=== PATIENT | male | born 1980 | race Caucasian/White ===

== ENCOUNTER 2017-12-22 04:55 | Emergency (ER) | payer SELFPAY ==
[2017-12-22 05:03] VITALS: BP 167/91; PULSE 88; RESP 20; TEMP 36.9; O2SAT 97; BMI 41.3
--- NOTE | 2017-12-22 05:17 | XR_ITS ---
XR chest 2V HISTORY: ITS.REASON: cough, wheezing ORDERING PHYSICIAN: Spike Maldonado MD PATIENT AGE: 37 years COMPARISON: None available FINDINGS: The cardiomediastinal silhouette and pulmonary vascularity are within normal limits. The lungs are clear without infiltrates, suspicious nodules, or pleural effusions. There are degenerative changes in the thoracic spine No acute bony abnormalities. IMPRESSION: No acute finding
[2017-12-22 05:37] LABS: Basophils % 0.6 % (0.1-2.0); Eosinophils # 0.2 K/mm3 (0.0-0.4); Eosinophils % 2.4 % (0.1-12.0); Hematocrit 48.3 % (42.0-52.0); Hemoglobin 16.5 g/dL (14.1-18.0); Lymphocytes % 27.8 K/mm3 (10-50); Mean Corpuscular HGB Conc 34.2 g/dL (31.8-35.4); Mean Corpuscular Hemoglobin 30.7 pg (27.0-31.2); Mean Corpuscular Volume 89.8 fl (80-94); Mean Platelet Volume 7.8 fl (7.4-10.4); Monocytes # 0.5 K/mm3 (0.1-1.0); Monocytes % 7.1 % (1.7-9.3); Neutrophils # 4.5 K/mm3 (1.8-7.8); Platelet Count 221 K/mm3 (142-424); Red Blood Count 5.37 M/mm3 (4.60-6.20); Red Cell Distribution Width 12.5 % (11.5-17.5); White Blood Count 7.3 K/mm3 (4.8-10.8)
[2017-12-22 05:52] LABS: Alanine Aminotransferase 31 U/L (12-78); Alkaline Phosphatase 71 U/L (46-116); Anion Gap 13.3 mEq/L (5-15); Aspartate Amino Transferase 21 U/L (15-37); Bilirubin,Total 0.3 mg/dL (0.2-1.0); Blood Urea Nitrogen 15 mg/dL (7-18); Calcium 8.9 mg/dL (8.5-10.1); Carbon Dioxide 28 mmol/L (21.0-32.0); Chloride 103 mmol/L (98-107); Creatinine Clearance Estimated 110 mL/min (0-300); Creatinine,Serum 0.91 mg/dL (0.70-1.30); Estimated Glomerular Filt Rate 93 ml/min (>60); GFR (African American) 113 ML/MIN (>60); Globulin 3.9 gm/dl (1.3-3.2); Glucose 105 mg/dL (74-106); Potassium 3.3 mmoL/L (3.5-5.1); Sodium 141 mmol/L (136-145); Total Protein,Serum 7.9 gm/dL (6.4-8.2)
[2017-12-22 06:05] VITALS: BP 162/92; PULSE 80; RESP 18; O2SAT 97
--- NOTE | 2017-12-22 06:27 | HMH.EDNVD ---
ED Disposition Clinical Impression: Gastroenteritis Disposition: Home, Self-Care Condition on Discharge: Good Instructions: Nausea and Vomiting-Adult Additional Instructions: fluids and use medds and see pcp for naren rodriguez Prescriptions: Ondansetron HCl [Zofran 4mg Tab] 4 mg PO Q8H #20 tab Forms: Work/School Release - Critical Care Critical Care Time: No Attestation: On 12/22/17, the high probability of a clinically significant, sudden or life threatening deterioration of the following system(s) required my full and direct attention, intervention and personal management. The time I documented below is in addition to time spent performing reported procedures but includes the following listed in this critical care notation. Medical Decision Making - Medical Records Medical records reviewed: Yes: I reviewed the patient's medical records. Vital Signs: 12/22/17 05:03 12/22/17 06:05 Temperature 98.5 F Temperature Source Oral Pulse Rate [Right] 88 80 Respiratory Rate 20 18 Blood Pressure [Right Arm] 167/91 162/92 Blood Pressure Mean [Right Arm] 116 115 Blood Pressure Source [Right Arm] Automatic Cuff Automatic Cuff Blood Pressure Position [Right Arm] Sitting Supine 02 Sat by Pulse Oximetry 97 97 Oxygen Delivery Method Room Air Room Air - Lab Data Lab results reviewed: Yes: I reviewed the patient's lab results. Lab Results 12/22/17 05:15: Influenza Type A Ag Negative, Influenza Type B Ag Negative 12/22/17 05:30: WBC 7.3, RBC 5.37, Hgb 16.5, Hct 48.3, MCV 89.8, MCH 30.7, MCHC 34.2, RDW 12.5, Plt Count 221, MPV 7.8, Neut % (Auto) 62.0, Lymph % (Auto) 27.8, [place] % (Auto) 7.1, Eos % (Auto) 2.4, Baso % (Auto) 0.6, Neut # (Auto) 4.5, Lymph # (Auto) 2.0, [place] # (Auto) 0.5, Eos # (Auto) 0.2, Baso # (Auto) 0.0 12/22/17 05:30: Sodium 141, Potassium 3.3 L, Chloride 103, Carbon Dioxide 28, Anion Gap 13.3, BUN 15, Creatinine 0.91, Estimated Creat Clear 110, Estimated GFR 93, Est GFR ( Amer) 113, Glucose 105, Calcium 8.9, Total Bilirubin 0.3, AST 21, ALT 31, Alkaline Phosphatase 71, Total Protein 7.9, Albumin 4.0, Globulin 3.9 H, Albumin/Globulin Ratio 1.0 L Result diagrams: 12/22/17 05:30 12/22/17 05:30 Orders (Tests/Meds): ED MEDICATIONS Generic Name Dose Route Start Last Admin Trade Name Freq PRN Reason Stop Dose Admin Sodium Chloride 1,000 mls @ 999 mls/hr 12/22/17 05:30 12/22/17 05:35 Sod Chloride 0.9% 1000ml Bag IV 12/22/17 06:30 999 mls/hr .Q1H1M SHAAN Administration ORDERS Category Date Time Status XR chest 2V Stat Exams 12/22/17 05:17 Taken - Radiology Data #1 Image(s): Chest Image Reviewed: Yes I reviewed the patient's radiology image Preliminary Findings: Normal/NAD - Vernon Inquiry Pt receiving controlled substance: No Nausea/Vomiting/Diarrhea HPI - General Chief complaint: Nausea/Vomiting/Diarrhea Stated complaint: Nausea,diarrhea,cough,body aches Time Seen by Provider: 12/22/17 06:27 Mode of Arrival: Ambulatory Source of Information: Patient, Medical Record Limitations: No Limitations Description of Symptoms (Recalled from ER Triage Doc. by RN): Pt reports nausea, vomiting, diarrhea, body aches, runny nose, and non-productive cough. 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 MD complaint: nausea, vomiting, diarrhea Onset (ago): day(s) Description of Diarrhea: water Associated Abdominal Pain: Yes Location of pain: diffuse Severity: moderate Quality: cramping Associated symptoms: malaise - Related Data Previous Rx's Medication Instructions Recorded Ondansetron HCl [Zofran 4mg Tab] 4 mg PO Q8H #20 tab 12/22/17 Allergies Allergy/AdvReac Type Severity Reaction Status Date / Time No Known Allergies Allergy Unverified 11/15/17 14:21 [facility] History I have reviewed the patient's past medical history: Yes - *Social History Smoking Status: Current every day s
--- NOTE | 2017-12-22 06:33 | ED_ITS ---
ED Disposition Clinical Impression: Gastroenteritis Disposition: Home, Self-Care Condition on Discharge: Good Instructions: Nausea and Vomiting-Adult Additional Instructions: fluids and use medds and see pcp for naren rodriguez Prescriptions: Ondansetron HCl [Zofran 4mg Tab] 4 mg PO Q8H #20 tab Forms: Work/School Release - Critical Care Critical Care Time: No Attestation: On 12/22/17, the high probability of a clinically significant, sudden or life threatening deterioration of the following system(s) required my full and direct attention, intervention and personal management. The time I documented below is in addition to time spent performing reported procedures but includes the following listed in this critical care notation. Medical Decision Making - Medical Records Medical records reviewed: Yes: I reviewed the patient's medical records. Vital Signs: 12/22/17 05:03 12/22/17 06:05 Temperature 98.5 F Temperature Source Oral Pulse Rate [Right] 88 80 Respiratory Rate 20 18 Blood Pressure [Right Arm] 167/91 162/92 Blood Pressure Mean [Right Arm] 116 115 Blood Pressure Source [Right Arm] Automatic Cuff Automatic Cuff Blood Pressure Position [Right Arm] Sitting Supine 02 Sat by Pulse Oximetry 97 97 Oxygen Delivery Method Room Air Room Air - Lab Data Lab results reviewed: Yes: I reviewed the patient's lab results. Lab Results 12/22/17 05:15: Influenza Type A Ag Negative, Influenza Type B Ag Negative 12/22/17 05:30: WBC 7.3, RBC 5.37, Hgb 16.5, Hct 48.3, MCV 89.8, MCH 30.7, MCHC 34.2, RDW 12.5, Plt Count 221, MPV 7.8, Neut % (Auto) 62.0, Lymph % (Auto) 27.8 , [place] % (Auto) 7.1, Eos % (Auto) 2.4, Baso % (Auto) 0.6, Neut # (Auto) 4.5, Lymph # (Auto) 2.0, [place] # (Auto) 0.5, Eos # (Auto) 0.2, Baso # (Auto) 0.0 12/22/17 05:30: Sodium 141, Potassium 3.3 L, Chloride 103, Carbon Dioxide 28, Anion Gap 13.3, BUN 15, Creatinine 0.91, Estimated Creat Clear 110, Estimated GFR 93, Est GFR ( Amer) 113, Glucose 105, Calcium 8.9, Total Bilirubin 0.3, AST 21, ALT 31, Alkaline Phosphatase 71, Total Protein 7.9, Albumin 4.0, Globulin 3.9 H, Albumin/Globulin Ratio 1.0 L Result diagrams: 12/22/17 05:30 12/22/17 05:30 Orders (Tests/Meds): ED MEDICATIONS Generic Name Dose Route Start Last Admin Trade Name Freq PRN Reason Stop Dose Admin Sodium Chloride 1,000 mls @ 999 mls/hr 12/22/17 05:30 12/22/17 05:35 Sod Chloride 0.9% 1000ml Bag IV 12/22/17 06:30 999 mls/hr .Q1H1M SHAAN Administration ORDERS Category Date Time Status XR chest 2V Stat Exams 12/22/17 05:17 Taken - Radiology Data #1 Image(s): Chest Image Reviewed: Yes I reviewed the patient's radiology image Preliminary Findings: Normal/NAD - Vernon Inquiry Pt receiving controlled substance: No Nausea/Vomiting/Diarrhea HPI - General Chief complaint: Nausea/Vomiting/Diarrhea Stated complaint: Nausea,diarrhea,cough,body aches Time Seen by Provider: 12/22/17 06:27 Mode of Arrival: Ambulatory Source of Information: Patient, Medical Record Limitations: No Limitations Description of Symptoms (Recalled from ER Triage Doc. by RN): Pt reports nausea , vomiting, diarrhea, body aches, runny nose, and non-productive cough. 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
[2017-12-22 06:47] VITALS: BP 148/91; PULSE 80; RESP 12; TEMP 37.2; O2SAT 99
== END 2017-12-22 06:51 | disposition home or self-care (01) ==
PROVIDERS: Emergency Provider Emergency Medicine
DX: K52.9 Noninfective gastroenteritis and colitis, unspecified (principal); F17.210 Nicotine dependence, cigarettes, uncomplicated
CPT/HCPCS: 71046; 80053; 85025; 87275; 87276; 96365; 99284

== ENCOUNTER 2020-03-11 19:37 | Emergency (ER) | payer SELFPAY ==
[2020-03-11 19:51] VITALS: BP 185/98; PULSE 100; RESP 17; TEMP 36.8; O2SAT 97; BMI 41.8
[2020-03-11 20:09] VITALS: BP 185/98; PULSE 100; RESP 17; TEMP 36.8; O2SAT 97; BMI 40.6
--- NOTE | 2020-03-11 20:14 | HMH.EDUTC ---
[facility] – [place] Disposition Clinical Impression: Pneumonia Qualifiers: Pneumonia type: due to unspecified organism Laterality: right Lung location: lower lobe of lung Qualified Code(s): J18.9 - Pneumonia, unspecified organism Disposition: Home, Self-Care Condition on Discharge: Good Instructions: Pneumonia-Adult, Cough, DI for Cough -- Adult, Albuterol, Azithromycin, Preventing the Spread of Coronavirus Discharge Instructions Additional Instructions: ? Start antibiotic today. Be sure to complete entire prescription even if feeling better ? Monitor temp. Tylenol every 4 hours as needed and / or ibuprofen every 6 hours as needed ( As long as your primary care physician has told you that it ok to take both. For fever/aches/pains ER if no less than 101 despite Tylenol or Motrin ? Humidifier/vaporizer or hot steamy shower ? Inhaler every 4-6 hours as needed like we discussed. If unsure how to use it, ask pharmacist to demonstrate how. Should help open airways and improve cough, wheezing, and shortness of breath ? Mucinex during the day for your cough and cough suppressant only at night. Be sure to drink lots of water. Insurance may not cover a prescriptions for mucinex. Might be cheaper to get 400mg tablets and take 2 tablet in the morning, mid-day and evening with lots of water. Follow up IMMEDIATELY for new or worsening of symptoms OR no noticeable improvement over the next 48-72 hours. 911 immediately for any life threatening symptoms such as chest pain or difficulty breathing You will be on home quarantine for the next 14 days, you was tested for COVID19 and it may take several days to get the test back and they will notify you, you was told in the [facility] not to be out in public and not to work You was given COVID19 handout on what to do Please follow this closely Straight to ER if any life threatening symptoms shortness of breath ETC, Make sure to let them know that you was tested for COVID19 and awaiting results of testing Use Inhaler as advised in [facility] with aerochamber Prescriptions: Azithromycin [Z-Chris 250mg Tab] 250 mg PO DIRECTED #6 tab Transmission Status: Pending to [id number] Referrals: Provider,Referral, MD [Primary Care Provider] - As needed Forms: Work/School Release Time of Disposition: 21:30 Medical Decision Making - Vernon Inquiry Pt receiving controlled substance: No Vernon was queried for this patient: No Vital Signs: 03/11/20 19:51 03/11/20 20:09 Temperature 98.3 F 98.3 F Temperature Source Oral Oral Pulse Rate [Right Brachial] 100 H 100 H Respiratory Rate 17 17 Blood Pressure [Right Arm] 185/98 H 185/98 H Blood Pressure Mean [Right Arm] 127 127 Blood Pressure Source [Right Arm] Automatic Cuff Automatic Cuff Blood Pressure Position [Right Arm] Sitting Sitting 02 Sat by Pulse Oximetry 97 97 Oxygen Delivery Method Room Air Room Air - Lab Data Lab results reviewed: Yes: I reviewed the patient's lab results. Lab Results 03/11/20 20:02: Influenza Type A Ag Negative, Influenza Type B Ag Negative 03/11/20 20:02: Strep Scn [facility] Negative Orders (Tests/Meds): ED MEDICATIONS Discontinued Medications Generic Name Dose Route Start Last Admin Trade Name Freq PRN Reason Stop Dose Admin Azithromycin 500 mg 03/11/20 21:28 Zithromax 250mg Tablet PO 03/11/20 21:29 ONCE ONE Protocol Miscellaneous 1 unit 03/11/20 21:29 Aerochamber/Optihaler MC 03/11/20 21:30 ONCE ONE ORDERS Category Date Time Status Chest XR 2 view (NOT portable) [XR chest 2V] Stat Exams 03/11/20 20:15 Taken SARS-CoV-2, KIM Stat Lab 03/11/20 21:11 Ordered Strep Screen Confirmation Stat Micro 03/11/20 20:02 Received - Radiology Data #1 Image(s): Chest Image Reviewed: Yes I reviewed the patient's radiology image w/the ED provider Right lower lobe infiltrate - Reevaluation(s) Time: 20:32 Reevaluation #1: Patient reports productive cough in the mornings however cough noted
--- NOTE | 2020-03-11 20:15 | XR_ITS ---
PROCEDURE: XR CHEST 2V CLINICAL HISTORY: COUGH AND FEVER Cough and fever COMPARISON: CXR2V XR chest 2V from 12/22/2017 FINDINGS: Mild cardiomegaly without failure. Patchy density is present in the right lung base medially suspicious for an area consolidation. Developing nodule is also consideration. Follow-up is suggested. This area measures 2.9 by 1.2 cm the A 1 cm lucency involves the distal clavicle on the right. There are degenerative changes in the thoracic spine IMPRESSION: 1. 2.9 x 1.2 cm parenchymal opacity in the right lung base which could be due to an area of dense consolidation or atelectasis versus developing nodule. Consider chest CT with contrast for further evaluation. 2. 1 cm lucency right distal clavicle suggesting underlying lytic lesion. Dictated by: Samy Verdugo MD 03/12/2020 05:52 Electronically signed by Samy Verdugo MD in [place] 03/12/2020 05:52
[2020-03-11 20:22] LABS: UTC Influenza A Antigen Negative (Negative); UTC Influenza B Antigen Negative (Negative); UTC Strep Screen (Rapid) Negative (Negative)
[2020-03-11 21:44] VITALS: BP 185/98; PULSE 100; RESP 17; TEMP 36.8; O2SAT 97
[2020-03-13 08:54] LABS: Covid-19 Nasal PCR Sendout Lex NOT DETECTED
--- NOTE | 2020-03-13 11:30 | PC.NURSE ---
0900-pt notified of negative COVID 19 results.
== END 2020-03-11 21:45 | disposition home or self-care (01) ==
PROVIDERS: Emergency Provider Nurse Practitioner
DX: J18.9 Pneumonia, unspecified organism (principal); F17.210 Nicotine dependence, cigarettes, uncomplicated
CPT/HCPCS: 71046; 87804; 87880; 99202

== ENCOUNTER 2020-03-31 15:15 | Emergency (ER) | payer OTHER, SELFPAY ==
--- NOTE | 2020-03-31 15:26 | XR_ITS ---
PROCEDURE: XR ANKLE RT MIN 3V CLINICAL INDICATION: injury Posttraumatic pain COMPARISON: XR FOOT RT MIN 3V from 03/31/2020 FINDINGS: There are no previous exams available for comparison. There has been prior ORIF of the calcaneus. 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 No acute fracture or dislocation is evident. Well-circumscribed calcific density is present the tip of the lateral malleolus and could be due to an old injury or soft tissue calcification. IMPRESSION: Posttraumatic and postsurgical changes. No acute fracture apparent. Dictated by: Samy Verdugo MD 03/31/2020 16:17 Electronically signed by Samy Verdugo MD in [place] 03/31/2020 16:17
[2020-03-31 15:28] VITALS: BP 180/106; PULSE 81; RESP 18; TEMP 36.7; O2SAT 97; BMI 38.4
--- NOTE | 2020-03-31 15:41 | HMH.EDUTC ---
[facility] – [place] Disposition Clinical Impression: Contusion of right foot Qualifiers: Encounter type: initial encounter Qualified Code(s): S90.31XA - Contusion of right foot, initial encounter Disposition: Home, Self-Care Condition on Discharge: Good Instructions: DI for Foot Sprain Additional Instructions: Rest the extremity, apply ice for 15 minutes as tolerated three or four times per day, Wear the kelsie wrap for compression, Elevate the extremity as tolerated while you are resting. Take ibuprofen for pain. I sent in a prescription to your pharmacy. Follow up with Dr. Acuna if you continue to have problems. I put in a referral but you need to call her office and schedule an appointment. Follow up with your regular doctor. GO TO THE ER FOR ANY WORSENING SYMPTOMS Prescriptions: Ibuprofen [Ibuprofen 600mg Tablet] 600 mg PO Q6HP PRN #30 tab PRN Reason: Mild Pain Transmission Status: Received by [id number] Referrals: Provider,Referral, [Primary Care Provider] - Kristie Acuna DPM [Staff Physician] - Forms: Work/School Release Time of Disposition: 16:30 Medical Decision Making - Medical Records Medical records reviewed: No: I reviewed the patient's medical records. - Vernon Inquiry Pt receiving controlled substance: No Vital Signs: 03/31/20 15:28 03/31/20 17:00 Temperature 98.0 F 98.0 F Temperature Source Oral Pulse Rate 81 Pulse Rate [Right Brachial] 81 Respiratory Rate 18 18 Blood Pressure 180/106 H Blood Pressure [Right Arm] 180/106 H Blood Pressure Mean [Right Arm] 130 Blood Pressure Source [Right Arm] Automatic Cuff Blood Pressure Position [Right Arm] Sitting 02 Sat by Pulse Oximetry 97 Oxygen Delivery Method Room Air - Radiology Data #1 Image(s): Foot/Toes Image Reviewed: Yes I reviewed the patient's radiology image, Yes I have reviewed radiologist's interpretation Preliminary Findings: No Fracture Seen PROCEDURE: XR ANKLE RT MIN 3V CLINICAL INDICATION: injury Posttraumatic pain COMPARISON: XR FOOT RT MIN 3V from 03/31/2020 FINDINGS: There are no previous exams available for comparison. There has been prior ORIF of the calcaneus. 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 No acute fracture or dislocation is evident. Well-circumscribed calcific density is present the tip of the lateral malleolus and could be due to an old injury or soft tissue calcification. IMPRESSION: Posttraumatic and postsurgical changes. No acute fracture apparent. Dictated by: Samy Verdugo MD 03/31/2020 16:17 Electronically signed by Samy Verdugo MD in [place] 03/31/2020 16:17 #2 Image(s): Ankle Image Reviewed: Yes I reviewed the patient's radiology image, Yes I have reviewed radiologist's interpretation Preliminary Findings: No Fracture Seen PROCEDURE: XR ANKLE RT MIN 3V CLINICAL INDICATION: injury Posttraumatic pain COMPARISON: XR FOOT RT MIN 3V from 03/31/2020 FINDINGS: There are no previous exams available for comparison. There has been prior ORIF of the calcaneus. 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 No acute fracture or dislocation is evident. Well-circumscribed calcific density is present the tip of the lateral malleolus and could be due to an old injury or soft tissue calcification. IMPRESSION: Posttraumatic and postsurgical changes. No acute fracture apparent. Dictated by: Samy Verdugo MD 03/31/2020 16:17 Electronically signed by Samy Verdugo MD in [place] 03/31/2020 16:17 [facility] [place] HPI - General Stated complaint: AO 5/1 right foot pain Time Seen by Provider: 03/31/20 15:41 Mode of Arrival: Ambulatory So
[2020-03-31 17:00] VITALS: BP 180/106; PULSE 81; RESP 18; TEMP 36.7; O2SAT 97
== END 2020-03-31 17:04 | disposition home or self-care (01) ==
PROVIDERS: Emergency Provider Nurse Practitioner Family
DX: S90.31XA Contusion of right foot, initial encounter (principal); W22.09XA Striking against other stationary object, initial encounter
CPT/HCPCS: 73610; 73630; 99201

== ENCOUNTER 2020-05-05 00:55 | Emergency (ER) | payer OTHER, SELFPAY ==
[2020-05-05 01:09] VITALS: BP 168/107; PULSE 84; RESP 16; TEMP 37.1; O2SAT 97; BMI 39.9
--- NOTE | 2020-05-05 01:22 | HMH.EDSKAF ---
ED Disposition Clinical Impression: Foreign body Disposition: Home, Self-Care Condition on Discharge: Good Instructions: DI for Removal of Foreign Body From Skin Additional Instructions: use meds and recheck if needed Prescriptions: cephALEXin [Keflex 500mg Cap] 500 mg PO TID #30 cap Transmission Status: Pending to [id number] Referrals: Provider,Referral, [Primary Care Provider] - - Critical Care Critical Care Time: No Attestation: On 05/05/20, the high probability of a clinically significant, sudden or life threatening deterioration of the following system(s) required my full and direct attention, intervention and personal management. The time I documented below is in addition to time spent performing reported procedures but includes the following listed in this critical care notation. Medical Decision Making - Medical Records Medical records reviewed: Yes: I reviewed the patient's medical records. - Veronn Inquiry Pt receiving controlled substance: No Vital Signs: 05/05/20 01:09 Temperature 98.7 F Temperature Source Oral Pulse Rate [Right Brachial] 84 Respiratory Rate 16 Blood Pressure [Right Arm] 168/107 H Blood Pressure Mean [Right Arm] 127 Blood Pressure Source [Right Arm] Automatic Cuff Blood Pressure Position [Right Arm] Sitting 02 Sat by Pulse Oximetry 97 Oxygen Delivery Method Room Air Skin/Abscess/FB HPI - General Chief complaint: Skin/Abscess/Foreign Body Stated complaint: AO 05/04/20 23:30 fishing hook in Left ring finger Time Seen by Provider: 05/05/20 01:15 Mode of Arrival: Ambulatory Source of Information: Patient, Medical Record Limitations: No Limitations Description of Symptoms (Recalled from ER Triage Doc. by RN): Patient reports getting a fishhook stuck in his left ring finger. - History of Present Illness HPI narrative: fishhook lt 4th distal finger complaint: foreign body Onset (ago): hour(s) Tetanus up to date: yes Location: L hand Severity: moderate Associated symptoms: denies other symptoms Treatments prior to arrival: none - Related Data Previous Rx's Medication Instructions Recorded Ibuprofen [Ibuprofen 600mg 600 mg PO Q6HP PRN #30 tab 03/31/20 Tablet] cephALEXin [Keflex 500mg Cap] 500 mg PO TID #30 cap 05/05/20 Allergies Allergy/AdvReac Type Severity Reaction Status Date / Time No Known Allergies Allergy Verified 05/05/20 01:13 [facility] History - Hepatitis A Screen Drug use history?: No High risk sexual behaviors?: No History of sexually transmitted infection?: No Currently employed?: No Childcare worker?: No Do you have indoor plumbing?: Yes Do you have electricity?: Yes Attestation statement:: This patient has been screened for Hepatitis A risk factors. I have reviewed the patient's past medical history: Yes Fractures: Yes - Social History Smoking Status: Current every day smoker Tobacco Type: cigarettes # Packs/Day (cigarettes): 1 Alcohol Intake: never Occupational Status: employed ROS Obtained: Yes All systems reviewed & no additional complaints - Constitutional Constitutional: Denies fever(s) - Eyes Eyes: Denies change in vision - ENT Ears, Nose, Mouth, and Throat: Denies sore throat - Cardiovascular Cardiovascular: Denies chest pain - Respiratory Respiratory: No cough - Gastrointestinal Gastrointestingal: Denies: abdominal pain - Genitourinary Male Genitourinary: Denies flank pain - Musculoskeletal Musculoskeletal: Denies joint pain - Integumentary/Breasts Skin/Breast: Denies rash - Neurologic Neurologic: Denies seizure-like activity Physical Exam - General General appearance: alert - Head Head exam: normocephalic - Eye Eye exam: Present: PERRL, EOMI - ENT ENT exam: Present: mucous membranes moist - Neck Neck exam: Present: trachea midline - Respiratory Respiratory exam: Absent: respiratory distress - Cardiovascular Cardiovascular exam: Prese
[2020-05-05 01:27] VITALS: BP 170/101; PULSE 77; RESP 16; TEMP 37.1; O2SAT 97
== END 2020-05-05 01:33 | disposition home or self-care (01) ==
PROVIDERS: Emergency Provider Emergency Medicine
DX: S60.455A Superficial foreign body of left ring finger, initial encounter (principal); W22.8XXA Striking against or struck by other objects, initial encounter; Y92.89 Other specified places as the place of occurrence of the external cause; F17.210 Nicotine dependence, cigarettes, uncomplicated
CPT/HCPCS: 10120; 99282

== ENCOUNTER 2020-07-14 09:46 | Emergency (ER) | payer OTHER, SELFPAY ==
[2020-07-14 09:51] VITALS: BP 169/109; PULSE 66; RESP 17; TEMP 36.8; O2SAT 97; BMI 38.4
--- NOTE | 2020-07-14 09:52 | HMH.EDGENADL ---
ED Disposition Clinical Impression: Elevated blood pressure reading Dyspnea Qualifiers: Dyspnea type: shortness of breath Qualified Code(s): R06.02 - Shortness of breath Pharyngitis Qualifiers: Pharyngitis/tonsillitis etiology: unspecified etiology Qualified Code(s): J02.9 - Acute pharyngitis, unspecified Disposition: Home, Self-Care Condition on Discharge: Good Instructions: DI for Shortness of Breath, DI for Viral Pharyngitis, DI for High Blood Pressure Referrals: PCP,No [Primary Care Provider] - 3 days Forms: Work/School Release - Critical Care Critical Care Time: No Attestation: On 07/14/20, the high probability of a clinically significant, sudden or life threatening deterioration of the following system(s) required my full and direct attention, intervention and personal management. The time I documented below is in addition to time spent performing reported procedures but includes the following listed in this critical care notation. Medical Decision Making - Medical Records Medical records reviewed: Yes: I reviewed the patient's medical records. - [place] Inquiry Pt receiving controlled substance: No Vital Signs: 07/14/20 09:51 07/14/20 10:11 Temperature 98.2 F Temperature Source Oral Pulse Rate [Radial] 66 81 Respiratory Rate 17 Blood Pressure [Right Arm] 169/109 H 166/116 H Blood Pressure Mean [Right Arm] 129 132 Blood Pressure Source [Right Arm] Automatic Cuff Automatic Cuff Blood Pressure Position [Right Arm] Sitting Sitting 02 Sat by Pulse Oximetry 97 99 Oxygen Delivery Method Room Air Room Air Orders (Tests/Meds): ORDERS Category Date Time Status COVID [Coronavirus 19 Swab (OUTPT)] Routine Lab 07/14/20 10:10 Received Strep Scrn Group A (Rapid) Stat Lab 07/14/20 10:18 Received - Radiology Data #1 Image(s): Chest Image Reviewed: Yes I reviewed the patient's radiology results Preliminary Findings: Normal/NAD Medical Decision Narrative: Strep screen negative. COVID swabs sent. Chest x-ray with no signs of pneumonia, pneumothorax. Patient is afebrile. He does appear to have some pharyngitis. Recommended symptomatic treatment for this as it is likely viral. No airway obstruction or signs of Ximena's angina. He does have elevated blood pressure and I recommended following up with primary care concerning this. Advised quarantine until results of COVID test is known. General Adult HPI - General Stated complaint: soa sore throat Time Seen by Provider: 07/14/20 09:52 Mode of Arrival: Ambulatory Source of Information: Patient Limitations: No Limitations - History of Present Illness HPI narrative: 39-year-old male with no significant past medical history who presents to the emergency department for evaluation of shortness of air and sore throat that started this morning. He feels like it is harder for him to get a deep breath than normal. No trauma. No fever. He has a chronic cough that is unchanged. No vomiting, diarrhea, chest pain. He was sent here for a COVID swab by his work. No known exposure. - Related Data Home Medications Medication Instructions Recorded Confirmed No Known Home Medications 07/14/20 07/14/20 Allergies Allergy/AdvReac Type Severity Reaction Status Date / Time No Known Allergies Allergy Verified 05/05/20 01:13 [facility] History - Hepatitis A Screen Attestation statement:: This patient has been screened for Hepatitis A risk factors. I have reviewed the patient's past medical history: Yes (noncontributory) Fractures: Yes - Social History Smoking Status: Current every day smoker Tobacco Type: cigarettes # Packs/Day (cigarettes): 1 Alcohol Intake: never Occupational Status: employed ROS Obtained: Yes All systems reviewed & no additional complaints Physical Exam - General General appearance: alert, in no apparent distress - Eye Eye exam: Present: normal appearance, PERRL, EOMI - ENT ENT exam: Prese
--- NOTE | 2020-07-14 10:00 | XR_ITS ---
PROCEDURE: XR CHEST 2V CLINICAL HISTORY: soa The shortness of air, cough, smoker COMPARISON: CR CXR2V XR chest 2V from 12/22/2017 CR XR CHEST 2V from 03/11/2020 FINDINGS: The cardiomediastinal silhouette and pulmonary vascularity are within normal limits. The lungs are clear without infiltrates, suspicious nodules, or pleural effusions. No acute bony abnormalities. IMPRESSION: No acute findings. Dictated by: Samy Verdugo MD 07/14/2020 10:20 Samy Verdugo MD in [place] 07/14/2020 10:20
--- NOTE | 2020-07-14 10:03 | PC.NURSE ---
Pt to rad.
[2020-07-14 10:11] VITALS: BP 166/116; PULSE 81; O2SAT 99
--- NOTE | 2020-07-14 10:11 | PC.NURSE ---
Lab at bedside
[2020-07-14 10:30] VITALS: BP 147/96; PULSE 77; O2SAT 97
[2020-07-14 10:43] LABS: Strep Scrn Group A (Rapid) Negative (Negative)
[2020-07-14 11:02] VITALS: BP 147/96; PULSE 77; RESP 17; TEMP 36.8; O2SAT 97
== END 2020-07-14 11:04 | disposition home or self-care (01) ==
PROVIDERS: Emergency Provider Emergency Medicine
DX: J02.9 Acute pharyngitis, unspecified (principal); Z20.828 Contact with and (suspected) exposure to other viral communicable diseases; R03.0 Elevated blood-pressure reading, without diagnosis of hypertension; F17.210 Nicotine dependence, cigarettes, uncomplicated
CPT/HCPCS: 71046; 87430; 99283; U0003

== ENCOUNTER 2020-08-29 14:33 | Inpatient (IN) | payer OTHER, SELFPAY ==
[2020-08-29] VITALS (17 sets, daily range): BP systolic 166–220; BP diastolic 103–127; PULSE 81–106; RESP 20–30; TEMP 36.8–37.1; O2SAT 86–98; BMI 41.3; BMI 41.4; BMI 46.2
--- NOTE | 2020-08-29 15:00 | PC.NURSE ---
Due to patient's respiratory status, the emergency room was called and report given to SRAVAN Blevins. Patient transferred to ER.
--- NOTE | 2020-08-29 15:12 | XR_ITS ---
PROCEDURE: XR CHEST PORTABLE CLINICAL HISTORY: SOA COMPARISON: CR CXR2V XR chest 2V from 12/22/2017 CR XR CHEST 2V from 03/11/2020 CR XR CHEST 2V from 07/14/2020 FINDINGS: The lung carpenter are fairly well expanded. There is minimal atelectasis versus minimal infiltrate right lower lobe and right cardiophrenic angle. The right upper lung field and left lung carpenter are clear. There is mild to moderate generalized cardiomegaly. There is no pulmonary congestion and there is no pleural fluid. There monitor lines overlying the chest. IMPRESSION: Cardiomegaly, question minimal right basilar infiltrate versus atelectasis Dictated by: Dr. Chip Paniagua MD 08/29/2020 17:21 Dr. Chip Paniagua MD in [place] 08/29/2020 17:21
--- NOTE | 2020-08-29 15:19 | HMH.EDSOB ---
ED Disposition Clinical Impression: Community acquired pneumonia Qualifiers: Laterality: right Lung location: lower lobe of lung Qualified Code(s): J18.9 - Pneumonia, unspecified organism Disposition: Admitted As Inpatient Condition on Discharge: [facility] - Critical Care Critical Care Time: No Attestation: On 08/29/20, the high probability of a clinically significant, sudden or life threatening deterioration of the following system(s) required my full and direct attention, intervention and personal management. The time I documented below is in addition to time spent performing reported procedures but includes the following listed in this critical care notation. Medical Decision Making - [place] Inquiry Pt receiving controlled substance: No Vital Signs: 08/29/20 14:56 08/29/20 15:17 08/29/20 15:33 Temperature 98.8 F 98.3 F Temperature Source Oral Oral Pulse Rate [Radial] 100 H 97 H 89 Respiratory Rate 30 H 26 H 29 H Blood Pressure [Right Arm] 209/118 H 215/120 H 202/117 H Blood Pressure Mean [Right Arm] 148 151 145 Blood Pressure Source [Right Arm] Automatic Cuff Blood Pressure Position [Right Arm] Sitting 02 Sat by Pulse Oximetry 88 L 86 L 90 L Oxygen Delivery Method Room Air Room Air Nasal Cannula Oxygen Flow Rate (LPM) 3 08/29/20 16:00 Temperature Temperature Source Pulse Rate [Radial] 97 H Respiratory Rate 20 Blood Pressure [Right Arm] 204/127 H Blood Pressure Mean [Right Arm] 152 Blood Pressure Source [Right Arm] Automatic Cuff Blood Pressure Position [Right Arm] Sitting 02 Sat by Pulse Oximetry 92 L Oxygen Delivery Method Nasal Cannula Oxygen Flow Rate (LPM) 4 - Lab Data Lab Results 08/29/20 15:10: WBC 14.2 H, RBC 5.45, Hgb 16.8, Hct 49.9, MCV 91.7, MCH 30.9, MCHC 33.7, RDW 12.9, Plt Count 215, MPV 7.7, Neut % (Auto) 85.2 H, Lymph % (Auto) 7.9 L, [place] % (Auto) 5.5, Eos % (Auto) 0.9, Baso % (Auto) 0.5, Neut # (Auto) 12.1 H, Lymph # (Auto) 1.1, [place] # (Auto) 0.8, Eos # (Auto) 0.1, Baso # (Auto) 0.1, Total Counted 100, Neutrophils % (Manual) 87 H, Lymphocytes % (Manual) 10, Monocytes % (Manual) 3, Platelet Estimate Normal, RBC Morphology Normal, ESR 6 08/29/20 15:10: Sodium 138, Potassium 3.8, Chloride 100, Carbon Dioxide 30, Anion Gap 11.8, BUN 8 L, Creatinine 0.70, Estimated Creat Clear 136, Estimated GFR 125, Est GFR ( Amer) 151, Glucose 121 H, Calcium 9.4, Total Bilirubin 0.8, AST 38, ALT 34, Alkaline Phosphatase 58, C-Reactive Protein 25.8 H, Total Protein 7.8, Albumin 4.4, Globulin 3.4 H, Albumin/Globulin Ratio 1.3 08/29/20 15:10: Lactate 1.4 08/29/20 15:10: SARS-CoV-2 IgG Ab (Rapid) Negative, SARS-CoV-2 IgM Ab (Rapid) Negative 08/29/20 15:10: Sodium 138, Potassium 3.9, Chloride 100, Carbon Dioxide 30, Anion Gap 11.9, BUN 9, Creatinine 0.70, Estimated Creat Clear 136, Estimated GFR 125, Est GFR ( Amer) 151, Glucose 120 H, Calcium 9.5, Total Bilirubin 0.9, AST 39, ALT 35, Alkaline Phosphatase 68, C-Reactive Protein 27.4 H, Total Protein 8.2, Albumin 4.5, Globulin 3.7 H, Albumin/Globulin Ratio 1.2 08/29/20 15:10: NT-Pro-B Natriuret Pep 347 H 08/29/20 15:12: Specimen Source Left radial, O2 % 21%, ABG pH 7.41, ABG pCO2 42.6, ABG pO2 47.8 L, ABG HCO3 26.1 H, ABG Total CO2 27.4 H, ABG O2 Saturation 86 L*, ABG Base Excess 1.4, Samy Test Acceptable Result diagrams: 08/29/20 15:10 08/29/20 15:10 Orders (Tests/Meds): ED MEDICATIONS Generic Name Dose Route Start Last Admin Trade Name Freq PRN Reason Stop Dose Admin Acetaminophen 650 mg 08/29/20 17:31 Acetaminophen 325mg Tab PO 09/28/20 17:30 Q4HP PRN As Needed for Fever or Pain Albuterol Sulfate 2 puffs 08/29/20 18:24 Albuterol-Hfa 90mcg/Puff Inhaler 8gm IH 09/28/20 18:23 Q4HP PRN Shortness Of Breath Docusate Sodium 100 mg 08/30/20 09:00 Docusate Sodium 100 Mg Capsule PO 09/29/20 08:59 DAILY SHAAN Azithromycin 500 mg/ Sodium 250 mls @ 250 mls/hr 08/30/20 16:30 Chloride IV 09/13/20 16
[2020-08-29 15:20] LABS: Basophils # 0.1 K/mm3 (0-0.2); Basophils % 0.5 % (0.1-2.0); Eosinophils # 0.1 K/mm3 (0.0-0.4); Eosinophils % 0.9 % (0.1-12.0); Hematocrit 49.9 % (42.0-52.0); Hemoglobin 16.8 g/dL (14.1-18.0); Lymphocytes # 1.1 K/mm3 (0.7-4.5); Lymphocytes % 7.9 % (10-50); Mean Corpuscular HGB Conc 33.7 g/dL (31.8-35.4); Mean Corpuscular Hemoglobin 30.9 pg (27.0-31.2); Mean Corpuscular Volume 91.7 fl (80-94); Mean Platelet Volume 7.7 fl (7.4-10.4); Monocytes # 0.8 K/mm3 (0.1-1.0); Monocytes % 5.5 % (1.7-9.3); Neutrophils # 12.1 K/mm3 (1.8-7.8); Neutrophils % 85.2 % (37.0-80.0); Platelet Count 215 K/mm3 (142-424); Red Blood Count 5.45 M/mm3 (4.60-6.20); Red Cell Distribution Width 12.9 % (11.5-17.5); White Blood Count 14.2 K/mm3 (4.8-10.8)
[2020-08-29 15:23] LABS: Chloride 100 mmol/L (98-107); Sodium 138 mmol/L (136-145)
[2020-08-29 15:24] LABS: Potassium 3.8 mmoL/L (3.5-5.1)
[2020-08-29 15:25] LABS: MANUAL DIFFERENTIAL MANUAL DIFFERENTIAL (MANUAL DIFF)
[2020-08-29 15:26] LABS: Alanine Aminotransferase 34 U/L (12-78); Alkaline Phosphatase 58 U/L (38-126); Anion Gap 11.8 mEq/L (5-15); Aspartate Amino Transferase 38 U/L (17-59); Bilirubin,Total 0.8 mg/dl (0.2-1.3); Blood Urea Nitrogen 8 mg/dl (9-20); Carbon Dioxide 30 mmol/L (22.0-30.0); Creatinine Clearance Estimated 136 mL/min (50-200); Estimated Glomerular Filt Rate 125 ml/min (>60); GFR (African American) 151 ML/MIN (>60); Lactic Acid 1.4 mmol/L (0.7-2.1)
[2020-08-29 15:27] LABS: Albumin Level 4.4 g/dl (3.5-5.0); Albumin/Globulin Ratio 1.3 (1.1-1.8); Calcium 9.4 mg/dl (8.4-10.2); Globulin 3.4 g/dL (1.3-3.2); Glucose 121 mg/dl (74-100); Total Protein,Serum 7.8 g/dl (6.3-8.2)
[2020-08-29 15:31] LABS: ABG Base Excess 1.4 mmol/L (-2.4-2.3); ABG HCO3 26.1 mmhg (22.0-26.0); ABG Oxygen Saturation 86 % (90-100); ABG PCO2 42.6 mmhg (35.0-45.0); ABG PH 7.41 mmol/L (7.35-7.45); ABG TCO2 27.4 mmhg (23-27)
[2020-08-29 15:32] LABS: C-Reactive Protein 25.8 mg/L (0-4); Lymphocytes % 10 % (10-50); Monocytes % 3 % (2-9); Neutrophils % 87 % (42-76); Platelet Estimate Normal; RBC Morphology Normal; Total Cells Counted 100
[2020-08-29 15:32] LABS: Allen's Test Acceptable; Oxygen 21% %; Source Left Radial
[2020-08-29 15:34] LABS: ABG PO2 47.8 mmhg (80-100)
[2020-08-29 15:46] LABS: Alanine Aminotransferase 35 U/L (12-78); Albumin Level 4.5 g/dl (3.5-5.0); Albumin/Globulin Ratio 1.2 (1.1-1.8); Alkaline Phosphatase 68 U/L (38-126); Aspartate Amino Transferase 39 U/L (17-59); Bilirubin,Total 0.9 mg/dl (0.2-1.3); Blood Urea Nitrogen 9 mg/dl (9-20); Calcium 9.5 mg/dl (8.4-10.2); Carbon Dioxide 30 mmol/L (22.0-30.0); Creatinine Clearance Estimated 136 mL/min (50-200); Estimated Glomerular Filt Rate 125 ml/min (>60); GFR (African American) 151 ML/MIN (>60); Globulin 3.7 g/dL (1.3-3.2); Glucose 120 mg/dl (74-100); Potassium 3.9 mmoL/L (3.5-5.1); Sodium 138 mmol/L (136-145); Total Protein,Serum 8.2 g/dl (6.3-8.2)
[2020-08-29 15:48] LABS: Erythrocyte Sedimentation Rate 6 mm/hr (0-15)
[2020-08-29 15:52] LABS: C-Reactive Protein 27.4 mg/L (0-4)
[2020-08-29 15:58] LABS: Anion Gap 11.9 mEq/L (5-15); Chloride 100 mmol/L (98-107)
[2020-08-29 16:14] LABS: Coronavirus 19 IgG Antibody Negative (Negative); Coronavirus 19 IgM Antibody Negative (Negative)
[2020-08-29 16:44] LABS: NT Pro Brain Natriuretic Pep. 347 pg/mL (0-125)
--- NOTE | 2020-08-29 16:49 | PC.NURSE ---
Dr Taylor has agreed to admit pt
--- NOTE | 2020-08-29 16:57 | PC.NURSE ---
NOTIFIED HOUSE OF ADMISSION
--- NOTE | 2020-08-29 16:59 | ECG_ITS ---
APPROVED REPORT Exam: Resting ECG HR:97 bpm ECG Measurements Heart Rate 97 AXES ND 170 P 72 QRSd 98 QRS 60 QT 374 T 67 QTc 474 <Conclusion> Normal sinus rhythm Possible Left atrial enlargement Incomplete RBBB Otherwise a normal ECG Electronically signed by : Robb Prince, 08/30/2020 07:38:22
--- NOTE | 2020-08-29 17:00 | PC.NURSE ---
Awaiting covid 19 rapid results before admission per head of housekeeping.
--- NOTE | 2020-08-29 18:30 | PC.NURSE ---
Lab called down to notify pt covid swab had failed and would need to recollect and would take an additional 3 hours. 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
--- NOTE | 2020-08-29 19:04 | PC.NURSE ---
Physician speaking with Dr Taylor
--- NOTE | 2020-08-29 19:08 | PC.NURSE ---
report given to nicol
--- NOTE | 2020-08-29 20:37 | PC.NURSE ---
called lab to check on covid results stated 20 minutes left
--- NOTE | 2020-08-29 21:56 | PC.NURSE ---
patient arrived to floor via wheelchair.
--- NOTE | 2020-08-29 23:25 | PC.NURSE ---
notified of elevated BP of 190/122 and repeat of 210/122. Pt also c/o soa. Respirations of 36. New orders received. Metoprolol succinate 12.5 mg PO BID. Give one dose now. Amlodipine 2.5 mg po one time now. Duonebs Q6 prn. Medications administered. Pt requested chicken noodle soup and crackers. He is currently resting in bed at this time. Will continue to monitor.
[2020-08-30] VITALS (8 sets, daily range): BP systolic 159–200; BP diastolic 93–110; PULSE 71–99; RESP 20–24; TEMP 35.9–37.4; O2SAT 90–96; BMI 46.3
--- NOTE | 2020-08-30 01:46 | PC.NURSE ---
Pt currently sitting on side of bed. BP obtained manual on both arms. No difference noted in pressures. 190/110. Pt states that soa has improved. Respirations have improved. Currently 24. Pt remains on 4 L O2 NC. notified of hypertension. No new orders at this time. Will continue to monitor.
--- NOTE | 2020-08-30 03:43 | PC.NURSE ---
Pt requested simple mask vs O2 NC. Pt states he is a mouth breather. O2 sats 96%. Lungs continue to have expiratory rhonchi t/o and scattered wheezing. Pt states he doesn't feel as soa as he did when he first arrived to floor. BP remains elevated, but has improved since arrival to floor. Urine output 1300 cc, clear and pale. Pt is sitting up on side of bed. No needs at this time. Will continue to monitor.
--- NOTE | 2020-08-30 06:40 | PC.NURSE ---
Pt sitting up to chair. O2 sats improving. O2 titrated down to 3.5 L on simple mask.
[2020-08-30 07:14] LABS: Basophils # 0.1 K/mm3 (0-0.2); Basophils % 0.6 % (0.1-2.0); Eosinophils # 0.2 K/mm3 (0.0-0.4); Eosinophils % 1.7 % (0.1-12.0); Hematocrit 44.7 % (42.0-52.0); Hemoglobin 15.5 g/dL (14.1-18.0); Lymphocytes % 9.8 % (10-50); Mean Corpuscular HGB Conc 34.7 g/dL (31.8-35.4); Mean Corpuscular Hemoglobin 31.2 pg (27.0-31.2); Mean Corpuscular Volume 89.9 fl (80-94); Mean Platelet Volume 7.8 fl (7.4-10.4); Monocytes # 0.7 K/mm3 (0.1-1.0); Monocytes % 7.1 % (1.7-9.3); Neutrophils # 8.4 K/mm3 (1.8-7.8); Neutrophils % 80.9 % (37.0-80.0); Platelet Count 203 K/mm3 (142-424); Red Blood Count 4.98 M/mm3 (4.60-6.20); Red Cell Distribution Width 13.1 % (11.5-17.5); White Blood Count 10.4 K/mm3 (4.8-10.8)
[2020-08-30 07:19] LABS: Chloride 97 mmol/L (98-107); Sodium 138 mmol/L (136-145)
[2020-08-30 07:21] LABS: Blood Urea Nitrogen 11 mg/dl (9-20); Creatinine Clearance Estimated 119 mL/min (50-200); Estimated Glomerular Filt Rate 107 ml/min (>60); GFR (African American) 130 ML/MIN (>60)
[2020-08-30 07:22] LABS: Alanine Aminotransferase 33 U/L (12-78); Albumin Level 4.3 g/dl (3.5-5.0); Albumin/Globulin Ratio 1.3 (1.1-1.8); Alkaline Phosphatase 52 U/L (38-126); Aspartate Amino Transferase 43 U/L (17-59); Bilirubin,Total 0.8 mg/dl (0.2-1.3); Calcium 9.4 mg/dl (8.4-10.2); Carbon Dioxide 34 mmol/L (22.0-30.0); Globulin 3.2 g/dL (1.3-3.2); Glucose 134 mg/dl (74-100); Total Protein,Serum 7.5 g/dl (6.3-8.2)
--- NOTE | 2020-08-30 08:57 | HMH.HP ---
*Admission Date: 08/29/20 *Chief complaint: Shortness of breath and cough *History of present illness: This 39-year-old white male developed symptoms 4 days ago. He started with nasal congestion and drainage and subsequently developed cough congestion fever. He had slight diarrhea. He is a smoker. In February he was treated with antibiotics for a pneumonia as an outpatient. With the symptoms at present he presented in the emergency room at [facility]. He has no regular physician. He was found to be quite ill with a developing right lower lobe pneumonia. He was admitted for antibiotic treatment and further evaluation. His COVID 19 testing was negative. His blood pressure has been markedly elevated since presentation. [facility] History I have reviewed the patient's past medical history: Yes Medical History: Reports:: Hypertension Denies:: Cancer, Diabetes Mellitus Type 1, Diabetes Mellitus Type 2, MRSA *Have you ever received a pneumonia vaccine?: No *Have you received a flu vaccine this season?: No Other Surgeries: Yes: Other (Elbow fracture and repair. Right ankle fracture, repair. Heel fractures) Amputation: No Fractures: Yes - *Social History Last grade of school completed: High school graduate Smoking Status: Current every day smoker Tobacco Type: cigarettes # Packs/Day (cigarettes): 1 Alcohol Intake: current Alcohol Intake Frequency:: holidays/special occasions only *Occupational Status:: unemployed Housing: apartment *Travel in the last 8 weeks: None Family Hx:: Heart Attack (Mother at age 46 of heart attack), Hypertension Comment: Father is living. He has 2 brothers and 1 sister. Review of Systems - Constitutional Reports fever(s), Denies weight loss - Eyes Denies change in vision - ENT Denies abnormal hearing - *Cardiovascular Reports shortness of breath with activity, Reports foot swelling, Denies irregular heart rhythm, Denies fast heart rate - *Respiratory Reports change in phlegm color, Reports chest congestion, Reports cough, Reports shortness of breath, Reports excessive phlegm production - *Gastrointestinal Denies abdominal pain, Denies change in bowel habits - *Genitourinary Denies difficulty urinating - *Musculoskeletal Reports joint pain, Reports joint swelling (Right ankle) - Integumentary/Breasts Denies bleeding lesions - *Neurologic Denies abnormal walking, Denies behavioral changes Meds Home Medications Medication Instructions Recorded Confirmed Type No Known Home Medications 07/14/20 08/29/20 History Allergies Allergy/AdvReac Type Severity Reaction Status Date / Time No Known Allergies Allergy Verified 05/05/20 01:13 Exam Vital signs and Labs for Last 24 Hours: Temp Pulse Resp BP Pulse Ox 98.9 F 94 H 22 176/108 H 96 08/30/20 04:00 08/30/20 04:00 08/30/20 04:00 08/30/20 04:00 08/30/20 04:00 Laboratory Results - last 24 hr 08/29/20 15:10: WBC 14.2 H, RBC 5.45, Hgb 16.8, Hct 49.9, MCV 91.7, MCH 30.9, MCHC 33.7, RDW 12.9, Plt Count 215, MPV 7.7, Neut % (Auto) 85.2 H, Lymph % (Auto) 7.9 L, [place] % (Auto) 5.5, Eos % (Auto) 0.9, Baso % (Auto) 0.5, Neut # (Auto) 12.1 H, Lymph # (Auto) 1.1, [place] # (Auto) 0.8, Eos # (Auto) 0.1, Baso # (Auto) 0.1, Total Counted 100, Neutrophils % (Manual) 87 H, Lymphocytes % (Manual) 10, Monocytes % (Manual) 3, Platelet Estimate Normal, RBC Morphology Normal, ESR 6 08/29/20 15:10: Sodium 138, Potassium 3.8, Chloride 100, Carbon Dioxide 30, Anion Gap 11.8, BUN 8 L, Creatinine 0.70, Estimated Creat Clear 136, Estimated GFR 125, Est GFR ( Amer) 151, Glucose 121 H, Calcium 9.4, Total Bilirubin 0.8, AST 38, ALT 34, Alkaline Phosphatase 58, C-Reactive Protein 25.8 H, Total Protein 7.8, Albumin 4.4, Globulin 3.4 H, Albumin/Globulin Ratio 1.3 08/29/20 15:10: Lactate 1.4 08/29/20 15:10: SARS-CoV-2 IgG Ab (Rapid) Negative, SARS-CoV-2 IgM Ab (Rapid) Negative 08/29/20 15:10: Sodium 138, Potassium 3.9, Chloride 100, C
--- NOTE | 2020-08-30 11:59 | HMH.PHAVTE ---
[facility] Pharmacy VTE Monitoring - Patient Demographics Admission date: 08/30/20 Report Date: 08/30/20 Time: 11:59 Allergies/Adverse Reactions: Patient Allergies No Known Allergies Allergy (Verified 05/05/20 01:13) Height: 1.75 m Weight: 142.065 kg Patient Problems: Current Active Problems Elevated blood pressure reading (Acute) Dyspnea (Acute) Community acquired pneumonia (Acute) Hypoxia (Acute) - VTE Risk Labs: VTE Related Lab Results Hgb 15.5 g/dL (14.1-18.0) 08/30/20 06:40 Hct 44.7 % (42.0-52.0) 08/30/20 06:40 Plt Count 203 K/mm3 (142-424) 08/30/20 06:40 BUN 11 mg/dl (9-20) 08/30/20 06:40 Creatinine 0.80 mg/dl (0.66-1.25) 08/30/20 06:40 Estimated Creat Clear 119 mL/min (50-200) 08/30/20 06:40 VTE Risk Level: Low Risk - Prophylaxis Types of VTE Prophylaxis: TEDS Knee High (TAO HOSE ORDERED)
--- NOTE | 2020-08-30 19:54 | PC.NURSE ---
PT IS SITTING UP IN THE CHAIR. AMBULATES AROUND THE ROOM. PT TOLERATED SHOWER THIS SHIFT. PT STATES HE FEELS SOMEWHAT BETTER THAN HE DID WHEN HE ARRIVED AT [facility]. O2 SATURATION HAS MAINTAINED IN THE MID 90'S ON 3.5 L SIMPLE MASK. LUNG SOUNDS HAVE SCATTERED WHEEZES. BOWEL SOUNDS NORMAL. WILL CONTINUE TO MONITOR.
[2020-08-31] VITALS (8 sets, daily range): BP systolic 135–180; BP diastolic 62–98; PULSE 62–88; RESP 18–24; TEMP 36.5–37; O2SAT 93–99; BMI 45.8
--- NOTE | 2020-08-31 05:21 | PC.NURSE ---
shift summary, pt has rested well t/o shift, has been on venturi mask t/o shift with O2 sats from 94-97%, pt has been encouraged to try to use nasal cannula and continues to state, I am a mouth breather, and I can't breathe with the nasal cannula, pt has been hypertensive this shift with systolic BP from 152-168, and diastolic BP 92-98, pt has no complaints of chest pain, SOA, diaphoresis, N/V
--- NOTE | 2020-08-31 11:35 | P.PN_ITS ---
Internal Medicine - PN: Subj *Date: 08/31/20 *Time: 11:35 Interval history: The patient is doing better. He was able to rest last night. He denies history of orthopnea or nocturia. He seems reluctant to try nasal cannula though his oxygen saturations have been good. His blood pressure has come down with treatment. Exam Vital signs and Labs for Last 24 Hours: Temp Pulse Resp BP Pulse Ox 98.6 F 62 20 135/62 99 08/31/20 08:00 08/31/20 08:00 08/31/20 08:00 08/31/20 08:00 08/31/20 08:00 I & O for Last 24 hours: Intake & Output 08/28/20 08/29/20 08/30/20 08/31/20 11:59 11:59 11:59 11:59 Intake Total 1810 / 1810 600 / 600 Output Total 1300 / 1300 Balance 510 / 510 600 / 600 Weight 313 lb 3.195 oz 309 lb 8 oz - Constitutional no acute distress - *Routine HEENT Exam Head: Present: normocephalic Eye: Present: PERRL ENT: Present: mucous membranes moist - Routine Chest/Breast/Axilla Exam Chest wall: Absent: tenderness - *Routine Respiratory Exam Present: decreased breath sounds, rhonchi - *Routine Cardiovascular Exam Present: RRR - *Routine Abdominal Exam Present: soft. Absent: tenderness - *Routine Extremities Exam Present: edema (1+) - *Routine Neurological Exam Present: alert, oriented X3 Assessment and Plan (1) Hypoxia Status: Acute Category: Medical Code(s): R09.02 - Hypoxemia (2) Community acquired pneumonia Status: Acute Qualifiers: Laterality: right Lung location: lower lobe of lung Qualified Code(s): J1 8.9 - Pneumonia, unspecified organism Category: Medical Code(s): J18.9 - Pneumonia, unspecified organism (3) Dyspnea Status: Acute Qualifiers: Dyspnea type: shortness of breath Qualified Code(s): R06.02 - Shortness of breath Category: Medical Code(s): R06.00 - Dyspnea, unspecified (4) Elevated blood pressure reading Status: Acute Category: Medical Code(s): R03.0 - Elevated blood-pressure reading, without diagnosis of hypertension - Assessment and plan all Dx Assessment and Plan for all problems:: Trial of nasal cannula. Consider echocardiogram. Repeat chest x-ray.
--- NOTE | 2020-08-31 11:38 | XR_ITS ---
PROCEDURE: XR CHEST 2V CLINICAL HISTORY: PNEUMONIA COMPARISON: CR XR CHEST 2V from 03/11/2020 CR XR CHEST 2V from 07/14/2020 CR XR CHEST PORTABLE from 08/29/2020 FINDINGS: The lung carpenter are well expanded. The questionable pneumonic infiltrate seen right base and right cardiophrenic angle is not seen on likely was atelectasis the prior study. Both lung carpenter are clear at this time. Again noted is mild generalized cardiomegaly however the vascularity is normal and there is no pleural fluid. IMPRESSION: Mild cardiomegaly, no acute chest pathology noted Dictated by: Dr. Chip Paniagua MD 08/31/2020 16:28 Dr. Chip Paniagua MD in [place] 08/31/2020 16:28
[2020-08-31 11:50] LABS: Basophils # 0.1 K/mm3 (0-0.2); Eosinophils # 0.3 K/mm3 (0.0-0.4); Eosinophils % 4.3 % (0.1-12.0); Hematocrit 44.6 % (42.0-52.0); Hemoglobin 15.5 g/dL (14.1-18.0); Lymphocytes # 2.1 K/mm3 (0.7-4.5); Lymphocytes % 27.8 % (10-50); Mean Corpuscular HGB Conc 34.7 g/dL (31.8-35.4); Mean Corpuscular Hemoglobin 31.6 pg (27.0-31.2); Mean Corpuscular Volume 91.1 fl (80-94); Monocytes # 0.9 K/mm3 (0.1-1.0); Monocytes % 11.5 % (1.7-9.3); Neutrophils # 4.2 K/mm3 (1.8-7.8); Neutrophils % 55.5 % (37.0-80.0); Platelet Count 199 K/mm3 (142-424); Red Cell Distribution Width 13.2 % (11.5-17.5); White Blood Count 7.5 K/mm3 (4.8-10.8)
[2020-08-31 11:55] LABS: Chloride 102 mmol/L (98-107)
[2020-08-31 11:56] LABS: Potassium 4.1 mmoL/L (3.5-5.1); Sodium 139 mmol/L (136-145)
[2020-08-31 11:59] LABS: Anion Gap 8.1 mEq/L (5-15); Blood Urea Nitrogen 17 mg/dl (9-20); Calcium 9.4 mg/dl (8.4-10.2); Carbon Dioxide 33 mmol/L (22.0-30.0); Creatinine Clearance Estimated 119 mL/min (50-200); Estimated Glomerular Filt Rate 107 ml/min (>60); GFR (African American) 130 ML/MIN (>60); Glucose 94 mg/dl (74-100)
--- NOTE | 2020-08-31 17:37 | PC.NURSE ---
PT IS SITTING UP ON THE SOB. NO COMPLAINTS OF DISCOMFORT. PT HAS MAINTAINED A O2 SATURATION IN THE MID 90'S ON 2 L NC. PT STATES HE DOES NOT CARE FOR THE NC B/C HE THINKS IT IS VERY UNCOMFORTABLE BUT HE WOULD TOLERATE IT FOR NOW. LUNG SOUNDS HAVE SCATTERED WHEEZES/RHONCHI. FINE CRACKLES NOTED TO THE RT BASE. ABDOMEN SOFT/ROUND/NON TENDER WITH ACTIVE BOWEL SOUNDS. EATING AND DRINKING WELL. PT HAS AMBULATED IN THE ROOM AND TO THE BATHROOM. WILL CONTINUE TO MONITOR.
[2020-09-01] VITALS: BP 170/108; PULSE 67; RESP 18; TEMP 36.7; O2SAT 95
[2020-09-01 02:12] VITALS: O2SAT 96
[2020-09-01 04:00] VITALS: BP 158/78; PULSE 65; RESP 18; TEMP 36.6; O2SAT 93
--- NOTE | 2020-09-01 04:41 | PC.NURSE ---
shift summary, pt has rested well t/o shift, pt remained on 2 L NC w/ O2 sats from 95-96%, pt changed to room air at 0200 and O2 sats have remained 93-96%, pt has been hypertensive this shift w/ systolic BP 158-180, diastolic BP 78-108, HR has ranged from 65-67, pt has had no complaints of SOA, chest pain, N/V, or diaphoresis
[2020-09-01 05:00] VITALS: BMI 45.9
[2020-09-01 06:52] VITALS: O2SAT 92
[2020-09-01 08:00] VITALS: BP 180/86; PULSE 90; RESP 16; TEMP 36.7; O2SAT 91; O2SAT 93
--- NOTE | 2020-09-01 09:04 | HMH.ACPN2 ---
Internal Medicine - PN: Subj *Date: 09/01/20 *Time: 09:04 Interval history: He is much improved. He was able to sleep through the night. He is not using oxygen this morning. He still has bilateral decreased breath sounds and rhonchi and wheezes. Exam Vital signs and Labs for Last 24 Hours: Temp Pulse Resp BP Pulse Ox 98.0 F 90 16 180/86 H 91 L 09/01/20 08:00 09/01/20 08:00 09/01/20 08:00 09/01/20 08:00 09/01/20 08:00 Laboratory Results - last 24 hr 08/31/20 11:42: WBC 7.5 D, RBC 4.90, Hgb 15.5, Hct 44.6, MCV 91.1, MCH 31.6 H, MCHC 34.7, RDW 13.2, Plt Count 199, MPV 8.0, Neut % (Auto) 55.5, Lymph % (Auto) 27.8, [place] % (Auto) 11.5 H, Eos % (Auto) 4.3, Baso % (Auto) 1.0, Neut # (Auto) 4.2, Lymph # (Auto) 2.1, [place] # (Auto) 0.9, Eos # (Auto) 0.3, Baso # (Auto) 0.1 08/31/20 11:42: Sodium 139, Potassium 4.1, Chloride 102, Carbon Dioxide 33 H, Anion Gap 8.1, BUN 17 D, Creatinine 0.80, Estimated Creat Clear 119, Estimated GFR 107, Est GFR ( Amer) 130, Glucose 94, Calcium 9.4 I & O for Last 24 hours: Intake & Output 08/29/20 08/30/20 08/31/20 09/01/20 11:59 11:59 11:59 11:59 Intake Total 1810 / 1810 600 / 600 1080 / 1080 Output Total 1300 / 1300 Balance 510 / 510 600 / 600 1080 / 1080 Weight 313 lb 3.195 oz 309 lb 8 oz 310 lb 3 oz Microbiology Reports for the Last 24 Hours: Microbiology 08/29/20 15:10 Blood Blood Culture - Preliminary NO GROWTH AFTER 48 HOURS 08/29/20 15:10 Blood Blood Culture - Preliminary NO GROWTH AFTER 48 HOURS - Constitutional no acute distress - *Routine HEENT Exam Head: Present: normocephalic Eye: Present: PERRL ENT: Present: mucous membranes moist - *Routine Respiratory Exam Present: decreased breath sounds, rhonchi, wheezes - *Routine Cardiovascular Exam Present: RRR - *Routine Abdominal Exam Present: soft. Absent: tenderness - *Routine Extremities Exam Present: edema (Trace) Assessment and Plan (1) Hypoxia Status: Acute Category: Medical Code(s): R09.02 - Hypoxemia (2) Community acquired pneumonia Status: Acute Qualifiers: Laterality: right Lung location: lower lobe of lung Qualified Code(s): J18.9 - Pneumonia, unspecified organism Category: Medical Code(s): J18.9 - Pneumonia, unspecified organism (3) Dyspnea Status: Acute Qualifiers: Dyspnea type: shortness of breath Qualified Code(s): R06.02 - Shortness of breath Category: Medical Code(s): R06.00 - Dyspnea, unspecified (4) Elevated blood pressure reading Status: Acute Category: Medical Code(s): R03.0 - Elevated blood-pressure reading, without diagnosis of hypertension - Assessment and plan all Dx Assessment and Plan for all problems:: Encouraged to be up in room today. Possible discharge today. Chest x-ray yesterday was read as no acute pathology.
--- NOTE | 2020-09-01 20:30 | HMH.DCSUM ---
General - General Admission date:: 08/29/20 Discharge date: 09/01/20 HPI HPI: This 39-year-old white male developed symptoms 4 days prior to admission. He started with nasal congestion and drainage and subsequently developed cough, congestion and fever. He had slight diarrhea. He was noted to be a smoker. In February he was treated with antibiotics for a pneumonia as an outpatient. With current symptoms he presented to the emergency room at [facility]. He noted no regular physician. He was found to be quite ill with a developing right lower lobe pneumonia. He was admitted for antibiotic treatment and further evaluation. His COVID 19 testing was negative. His blood pressure was markedly elevated. Hospital Course Hospital Course: On admission patient was started on IV antibiotics, Rocephin and Zithromax in addition to duo nebs. He was also started on metoprolol for his high blood pressure.. Patient felt better each day. White blood cell count decreased from 14,200 down to 7500. Repeat chest x-ray on 08/31/2020 revealed no acute pathology. Oxygen was gradually weaned to nasal cannula and by 09/01 he required no oxygen with satisfactory O2 sats. He was encouraged to ambulate more which he tolerated well. On 09/01/2020 in the p.m. he continued to do well with the increase in activity and was stable to be discharged home. He was discharged home in stable and satisfactory condition. He was to limit his activity with follow-up with Dr. Taylor on August. He was discharged home on cefdinir twice daily for 10 days, losartan 25 daily and metoprolol 25 twice daily. Objective Vital signs: Temp Pulse Resp BP Pulse Ox 98.0 F 90 16 180/86 H 93 L 09/01/20 08:00 09/01/20 08:00 09/01/20 08:00 09/01/20 08:00 09/01/20 08:00 Narrative: Exam Vital signs and Labs for Last 24 Hours: Temp Pulse Resp BP Pulse Ox 98.0 F 90 16 180/86 H 91 L 09/01/20 08:00 09/01/20 08:00 09/01/20 08:00 09/01/20 08:00 09/01/20 08:00 Laboratory Results - last 24 hr 08/31/20 11:42: WBC 7.5 D, RBC 4.90, Hgb 15.5, Hct 44.6, MCV 91.1, MCH 31.6 H, MCHC 34.7, RDW 13.2, Plt Count 199, MPV 8.0, Neut % (Auto) 55.5, Lymph % (Auto) 27.8, [place] % (Auto) 11.5 H, Eos % (Auto) 4.3, Baso % (Auto) 1.0, Neut # (Auto) 4.2, Lymph # (Auto) 2.1, [place] # (Auto) 0.9, Eos # (Auto) 0.3, Baso # (Auto) 0.1 08/31/20 11:42: Sodium 139, Potassium 4.1, Chloride 102, Carbon Dioxide 33 H, Anion Gap 8.1, BUN 17 D, Creatinine 0.80, Estimated Creat Clear 119, Estimated GFR 107, Est GFR ( Amer) 130, Glucose 94, Calcium 9.4 I & O for Last 24 hours: Intake & Output 08/29/20 08/30/20 08/31/20 09/01/20 11:59 11:59 11:59 11:59 Intake Total 1810 / 1810 600 / 600 1080 / 1080 Output Total 1300 / 1300 Balance 510 / 510 600 / 600 1080 / 1080 Weight 313 lb 3.195 oz 309 lb 8 oz 310 lb 3 oz Microbiology Reports for the Last 24 Hours: Microbiology 08/29/20 15:10 Blood Blood Culture - Preliminary NO GROWTH AFTER 48 HOURS 08/29/20 15:10 Blood Blood Culture - Preliminary NO GROWTH AFTER 48 HOURS - Constitutional no acute distress - *Routine HEENT Exam Head: Present: normocephalic Eye: Present: PERRL ENT: Present: mucous membranes moist - *Routine Respiratory Exam Present: decreased breath sounds, rhonchi, wheezes - *Routine Cardiovascular Exam Present: RRR - *Routine Abdominal Exam Present: soft. Absent: tenderness - *Routine Extremities Exam Present: edema (Trace) Results Completed studies during hospitalization [Text1]: 08/29/2020 CXR IMPRESSION: Cardiomegaly, question minimal right basilar infiltrate versus atelectasis 08/31/2020 repeat CXR IMPRESSION: Mild cardiomegaly, no acute chest pathology noted 08/29/2020 EKG <Conclusion> Normal sinus rhythm Possible Left atrial enlargement Incomplete RBBB Otherwise
== END 2020-09-01 13:17 | disposition home or self-care (01) | DRG 195 ==
LOC: UTC 14:36 → ER 14:59 → 2ND 18:53
PROVIDERS: Admitting Provider Family Medicine; Emergency Provider Student in an Organized Health Care Education/Training Program; Visit Provider Family Medicine
DX: J18.9 Pneumonia, unspecified organism (principal); I10 Essential (primary) hypertension; Z72.0 Tobacco use
CPT/HCPCS: 71045; 71046; 80048; 80053; 82803; 83605; 83880; 85007; 85025; 85651; 86140; 86328; 87040; 90732; 93005; 94761; 96365; 96367; 99284; J0456; U0003

== ENCOUNTER 2020-10-17 12:53 | Inpatient (IN) | payer OTHER, SELFPAY ==
[2020-10-17] VITALS (7 sets, daily range): BP systolic 179–204; BP diastolic 86–116; PULSE 71–98; RESP 20–42; TEMP 36.5–37.3; O2SAT 91–98; BMI 44.3; BMI 44.9
--- NOTE | 2020-10-17 13:20 | XR_ITS ---
PROCEDURE: XR CHEST PORTABLE CLINICAL HISTORY: dyspnea COMPARISON: CR XR CHEST 2V from 07/14/2020 CR XR CHEST PORTABLE from 08/29/2020 CR XR CHEST 2V from 08/31/2020 FINDINGS: The cardiomediastinal silhouette and pulmonary vascularity are within normal limits. There is increased density in the right infrahilar region which has developed in the interval. This may be due to an area of consolidation/pneumonia. Follow-up suggested as a rapidly growing nodule could have a similar appearance. There is vague nodularity in the right midlung nonspecific. No acute bony abnormalities. IMPRESSION: Cardiomegaly with new area of consolidation or developing nodule in the right infrahilar region and faint nodularity in the right midlung. Recommend follow-up to confirm stability or resolution. Dictated by: Samy Verdugo MD 10/17/2020 14:53 Samy Verdugo MD in [place] 10/17/2020 14:53
--- NOTE | 2020-10-17 13:23 | HMH.EDSOB ---
ED Disposition Clinical Impression: Hypoxia Pneumonia Qualifiers: Pneumonia type: due to unspecified organism Laterality: right Lung location: lower lobe of lung Qualified Code(s): J18.9 - Pneumonia, unspecified organism Disposition: Admitted As Inpatient Condition on Discharge: Fair Referrals: Provider,Referral, [Referring] - - Critical Care Critical Care Time: No Attestation: On 10/17/20, the high probability of a clinically significant, sudden or life threatening deterioration of the following system(s) required my full and direct attention, intervention and personal management. The time I documented below is in addition to time spent performing reported procedures but includes the following listed in this critical care notation. Medical Decision Making - Medical Records Medical records reviewed: Yes: I reviewed the patient's medical records. MR Comment: previous admission for pneumonia and respiratory difficulty. Pt BP regimen includes 25mg losartan and 25 bid metoprolol. - [place] Inquiry Pt receiving controlled substance: No Vital Signs: 10/17/20 12:55 Temperature 99.1 F Temperature Source Oral Pulse Rate [Radial] 98 H Respiratory Rate 42 H Blood Pressure [Right Radial Artery] 194/116 H Blood Pressure Mean [Right Radial Artery] 142 Blood Pressure Position [Right Radial Artery] Sitting 02 Sat by Pulse Oximetry 91 L Oxygen Delivery Method Room Air - Lab Data Lab Results 10/17/20 13:25: WBC 12.6 H, RBC 5.58, Hgb 17.2, Hct 50.3, MCV 90.2, MCH 30.8, MCHC 34.2, RDW 13.0, Plt Count 218, MPV 8.2, Neut % (Auto) 85.0 H, Lymph % (Auto) 8.9 L, [place] % (Auto) 5.2, Eos % (Auto) 0.6, Baso % (Auto) 0.4, Neut # (Auto) 10.7 H, Lymph # (Auto) 1.1, [place] # (Auto) 0.7, Eos # (Auto) 0.1, Baso # (Auto) 0.1, Total Counted 100, Neutrophils % (Manual) 83 H, Lymphocytes % (Manual) 8 L, Monocytes % (Manual) 7, Eosinophils % (Manual) 2, Platelet Estimate Normal, RBC Morphology Normal 10/17/20 13:25: Sodium 138, Potassium 4.0, Chloride 102, Carbon Dioxide 27, Anion Gap 13.0, BUN 11, Creatinine 0.70, Estimated Creat Clear 139, Estimated GFR 124, Est GFR ( Amer) 150, Glucose 106 H, Calcium 9.3 10/17/20 13:25: Procalcitonin 0.073 Result diagrams: 10/17/20 13:25 10/17/20 13:25 Orders (Tests/Meds): ED MEDICATIONS Generic Name Dose Route Start Last Admin Trade Name Freq PRN Reason Stop Dose Admin Ceftriaxone Sodium 1 gm/ 50 mls @ 100 mls/hr 10/17/20 14:30 Sodium Chloride IV 10/31/20 14:29 Q24H SHAAN Protocol Discontinued Medications Generic Name Dose Route Start Last Admin Trade Name Freq PRN Reason Stop Dose Admin Albuterol Sulfate 8 puffs 10/17/20 13:20 10/17/20 13:49 Albuterol-Hfa 90mcg/Puff Inhaler 8gm IH 10/17/20 13:21 8 puffs ONCE STA Administration Irbesartan 25 mg 10/17/20 14:28 Irbesartan 75mg Tablet PO 10/17/20 14:29 ONCE ONE Miscellaneous 1 unit 10/17/20 13:20 10/17/20 13:49 Aerochamber/Optihaler MC 10/17/20 13:21 1 unit ONCE ONE Administration ORDERS Category Date Time Status XR chest portable Stat Exams 10/17/20 13:20 Ordered Covid-19 IgG/IgM ([facility]) Stat Lab 10/17/20 14:22 Ordered Full Resp Panel w/COVID ([facility]) Routine Lab 10/17/20 14:20 Ordered Rapid Influenza A&B Antigens Routine Lab 10/17/20 13:25 Received - Radiology Data #1 Image(s): Chest Image Reviewed: Yes I discussed the image results w/the radiologist Preliminary Findings: Abnormal Right lower lobe airspace disease. Medical Decision Narrative: 40-year-old male who presents with respiratory distress who presents with 3 days of symptoms of upper respiratory infection with shortness of breath that began last night. Denies chest pain and endorses suggestive fever. Differential will include COVID-19 pneumonia, bacterial pneumonia, viral URI, and others. Patient is significantly tachypneic on initial examination is 3 days into symptoms and hypoxic to 90. Patient is
[2020-10-17 14:02] LABS: Blood Urea Nitrogen 11 mg/dl (9-20); Calcium 9.3 mg/dl (8.4-10.2); Carbon Dioxide 27 mmol/L (22.0-30.0); Chloride 102 mmol/L (98-107); Creatinine Clearance Estimated 139 mL/min (50-200); Estimated Glomerular Filt Rate 124 ml/min (>60); GFR (African American) 150 ML/MIN (>60); Glucose 106 mg/dl (74-100); Sodium 138 mmol/L (136-145)
[2020-10-17 14:09] LABS: Basophils # 0.1 K/mm3 (0-0.2); Basophils % 0.4 % (0.1-2.0); Eosinophils # 0.1 K/mm3 (0.0-0.4); Eosinophils % 0.6 % (0.1-12.0); Hematocrit 50.3 % (42.0-52.0); Hemoglobin 17.2 g/dL (14.1-18.0); Lymphocytes # 1.1 K/mm3 (0.7-4.5); Lymphocytes % 8.9 % (10-50); Mean Corpuscular HGB Conc 34.2 g/dL (31.8-35.4); Mean Corpuscular Hemoglobin 30.8 pg (27.0-31.2); Mean Corpuscular Volume 90.2 fl (80-94); Mean Platelet Volume 8.2 fl (7.4-10.4); Monocytes # 0.7 K/mm3 (0.1-1.0); Monocytes % 5.2 % (1.7-9.3); Neutrophils # 10.7 K/mm3 (1.8-7.8); Platelet Count 218 K/mm3 (142-424); Red Blood Count 5.58 M/mm3 (4.60-6.20); White Blood Count 12.6 K/mm3 (4.8-10.8)
[2020-10-17 14:10] LABS: MANUAL DIFFERENTIAL MANUAL DIFFERENTIAL (MANUAL DIFF)
--- NOTE | 2020-10-17 14:17 | PC.NURSE ---
xray done on room 8
[2020-10-17 14:19] LABS: Procalcitonin 0.073 ng/mL (0.0-2.0)
[2020-10-17 14:23] LABS: Eosinophils % 2 % (0-3); Lymphocytes % 8 % (10-50); Monocytes % 7 % (2-9); Neutrophils % 83 % (42-76); Platelet Estimate Normal; RBC Morphology Normal; Total Cells Counted 100
--- NOTE | 2020-10-17 14:30 | PC.NURSE ---
Care management called for admission
[2020-10-17 14:50] LABS: Adenovirus,PCR Not Detected (NotDetected); Bordetella Pertussis Not Detected (NotDetected); Chlamydophila Pneumoniae, PCR Not Detected (NotDetected); Coronavirus 19, PCR Not Detected (NotDetected); Coronavirus 229E Not Detected (NotDetected); Coronavirus NL63 Not Detected (NotDetected); Coronavirus OC43 Not Detected (NotDetected); Coronovirus HKU1,PCR Not Detected (NotDetected); Human Metapneumovirus Not Detected (NotDetected); Influenza A, PCR Not Detected (NotDetected); Influenza AH1, 2009 Not Detected (NotDetected); Influenza AH1, PCR Not Detected (NotDetected); Influenza AH3,PCR Not Detected (NotDetected); Influenza B, PCR Not Detected (NotDetected); Mycoplasma Pneumoniae, PCR Not Detected (NotDetected); Parainfluenza 1, PCR Not Detected (NotDetected); Parainfluenza 2, PCR Not Detected (NotDetected); Parainfluenza 3, PCR Not Detected (NotDetected); Parainfluenza 4, PCR Not Detected (NotDetected); Respiratory Syncytial Virus Not Detected (NotDetected)
--- NOTE | 2020-10-17 15:00 | PC.NURSE ---
PT AND SPOUSE UPDATED ON PLAN OF CARE
--- NOTE | 2020-10-17 15:01 | HMH.PHAINT ---
MEDICATION RECONCILIATION COMPLETED ON PATIENT USING EXTERNAL FILL HISTORY FROM PHARMACY. -VIPUL MORA, ALDAD
[2020-10-17 15:39] LABS: Lactic Acid 1.1 mmol/L (0.7-2.1)
[2020-10-17 15:43] LABS: Coronavirus 19 IgG Antibody Negative (Negative); Coronavirus 19 IgM Antibody Negative (Negative)
--- NOTE | 2020-10-17 16:30 | PC.NURSE ---
PT AND SPOUSE UPDATED ON PLAN OF CARE
[2020-10-17 16:40] LABS: Rhinovirus/Enterovirus Detected (NotDetected)
--- NOTE | 2020-10-17 16:40 | PC.NURSE ---
Notified floor pt was negative for covid and we were ready to give report
--- NOTE | 2020-10-17 16:44 | PC.NURSE ---
CALLED FLOOR INFORMED READY TO GIVE REPORT
--- NOTE | 2020-10-17 17:00 | PC.NURSE ---
REPORT TO AMAN HINSON
--- NOTE | 2020-10-17 18:01 | HMH.HP ---
*Admission Date: 10/17/20 *Chief complaint: SOA, tachypnea *History of present illness: Mr. Westbrook is a 40-year-old male who presents with respiratory distress who presents with 3-4 days of worsening shortness of breath, tachycardia, tachypnea. Denies fevers, CP, GAR[place], Nausea and vomiting. His symptoms of upper respiratory infection have worsened too over this time. On presentation to the ER, noted to be tachypneic and hypoxemic. Suspected viral source such as COVID-19 pneumonia or bacterial pneumonia. was found to be negative for COVID, however due to new O2 requirement, admitted for respiratory failure to Medicine for further management. On my assessment, he remains dyspneic after breathing treatment and requiring 3L NC O2. Reviewed labs and imaging demonstrating right lower lobe airspace disease as well as diffuse interstitial fullness. reports an extensive smoking Hx with ~2pk/day for 20-25 yrs until recently. Was admitted 1 mo ago with similar infection, unable to smoke more than 1pk/day since last infection. [facility] History I have reviewed the patient's past medical history: Yes Medical History: Reports:: Hypertension Denies:: Cancer, Diabetes Mellitus Type 1, Diabetes Mellitus Type 2, MRSA *Have you ever received a pneumonia vaccine?: Yes *Have you received a flu vaccine this season?: Yes Other Surgeries: Yes: Other (Elbow fracture and repair. Right ankle fracture, repair. Heel fractures) Amputation: No Fractures: Yes - *Social History Last grade of school completed: GED Smoking Status: Current every day smoker Tobacco Type: cigarettes # Packs/Day (cigarettes): 1 Alcohol Intake: never Alcohol Intake Frequency:: holidays/special occasions only *Occupational Status:: employed Housing: house *Travel in the last 8 weeks: None Family Hx:: Heart Attack (Mother at age 46 of heart attack), Hypertension Review of Systems - Review of Systems Review of systems:: pertinent systems reviewed and negative unless documented below (14 point review of systems performed, pertinent positives and negatives as per HPI) Meds Home Medications Medication Instructions Recorded Confirmed Type Losartan Potassium 25 mg PO DAILY 10/17/20 10/17/20 History Metoprolol Succinate [Toprol XL 25 mg PO BID 10/17/20 10/17/20 History 25mg tablet] Allergies Allergy/AdvReac Type Severity Reaction Status Date / Time No Known Allergies Allergy Verified 05/05/20 01:13 Exam Vital signs and Labs for Last 24 Hours: Temp Pulse Resp BP Pulse Ox 99 F 89 42 H 189/100 H 93 L 10/17/20 17:06 10/17/20 17:06 10/17/20 17:06 10/17/20 17:06 10/17/20 16:59 Laboratory Results - last 24 hr 10/17/20 13:25: WBC 12.6 H, RBC 5.58, Hgb 17.2, Hct 50.3, MCV 90.2, MCH 30.8, MCHC 34.2, RDW 13.0, Plt Count 218, MPV 8.2, Neut % (Auto) 85.0 H, Lymph % (Auto) 8.9 L, [place] % (Auto) 5.2, Eos % (Auto) 0.6, Baso % (Auto) 0.4, Neut # (Auto) 10.7 H, Lymph # (Auto) 1.1, [place] # (Auto) 0.7, Eos # (Auto) 0.1, Baso # (Auto) 0.1, Total Counted 100, Neutrophils % (Manual) 83 H, Lymphocytes % (Manual) 8 L, Monocytes % (Manual) 7, Eosinophils % (Manual) 2, Platelet Estimate Normal, RBC Morphology Normal 10/17/20 13:25: Sodium 138, Potassium 4.0, Chloride 102, Carbon Dioxide 27, Anion Gap 13.0, BUN 11, Creatinine 0.70, Estimated Creat Clear 139, Estimated GFR 124, Est GFR ( Amer) 150, Glucose 106 H, Calcium 9.3 10/17/20 13:25: Procalcitonin 0.073 10/17/20 13:25: Influenza Type A Ag Negative, Influenza Type B Ag Negative 10/17/20 13:25: Chlamy pneumoniae PCR Not detected, Adenovirus (PCR) Not detected, B. pertussis DNA (PCR) Not detected, Coronavirus OC43 (PCR) Not detected, Coronavirus HKU1 (PCR) Not detected, Coronavirus 229E (PCR) Not detected, SARS-CoV-2 (PCR) Not detected, Coronavirus NL63 (PCR) Not detected, Human Metapneumovir PCR Not detected, Influenza A (H1) PCR Not detected, Influ A (H1N1/09) PCR Not detected, Influenza A (H3) PCR Not detected, Influenza Type
[2020-10-18] VITALS (12 sets, daily range): BP systolic 166–198; BP diastolic 86–124; PULSE 81–97; RESP 16–22; TEMP 36.6–36.9; O2SAT 89–97; BMI 44.4
--- NOTE | 2020-10-18 06:13 | PC.NURSE ---
Pt is alert and oriented x4. Pt rested well with eyes closed majority of shift. upon awakening pt noted diaphoretic. Pt states he is sweaty upon awakening at home as well . Remains afebrile. C/o GARLAND. B/p noted elevated post med administration this shift. Administered Motrin x1 and Nicotine patch to left arm. No further complaints of pain this am. Tolerated 3 lnc well this am. Denies SOA. Bilateral lungs noted diminished. Tolerated diet well. Ambulates independently in room. Adequate urine output noted. Remains safe. Call light within reach. Will continue to monitor.
[2020-10-18 07:13] LABS: Basophils % 0.1 % (0.1-2.0); Eosinophils % 0.1 % (0.1-12.0); Hematocrit 50.6 % (42.0-52.0); Hemoglobin 17.1 g/dL (14.1-18.0); Lymphocytes # 0.8 K/mm3 (0.7-4.5); Lymphocytes % 7.1 % (10-50); Mean Corpuscular HGB Conc 33.8 g/dL (31.8-35.4); Mean Corpuscular Hemoglobin 31.1 pg (27.0-31.2); Mean Platelet Volume 8.4 fl (7.4-10.4); Monocytes # 0.4 K/mm3 (0.1-1.0); Monocytes % 3.4 % (1.7-9.3); Neutrophils % 89.3 % (37.0-80.0); Platelet Count 234 K/mm3 (142-424); Red Blood Count 5.49 M/mm3 (4.60-6.20); Red Cell Distribution Width 13.3 % (11.5-17.5); White Blood Count 11.2 K/mm3 (4.8-10.8)
[2020-10-18 07:17] LABS: Chloride 102 mmol/L (98-107); MANUAL DIFFERENTIAL MANUAL DIFFERENTIAL (MANUAL DIFF); Sodium 138 mmol/L (136-145)
[2020-10-18 07:18] LABS: Potassium 4.4 mmoL/L (3.5-5.1)
[2020-10-18 07:20] LABS: Blood Urea Nitrogen 14 mg/dl (9-20); Creatinine Clearance Estimated 157 mL/min (50-200); Estimated Glomerular Filt Rate 148 ml/min (>60); GFR (African American) 180 ML/MIN (>60)
[2020-10-18 07:21] LABS: Anion Gap 11.4 mEq/L (5-15); Calcium 9.6 mg/dl (8.4-10.2); Carbon Dioxide 29 mmol/L (22.0-30.0); Glucose 149 mg/dl (74-100); Magnesium 2.1 mg/dl (1.6-2.3)
[2020-10-18 07:30] LABS: NT Pro Brain Natriuretic Pep. 519 pg/mL (0-125)
[2020-10-18 07:43] LABS: Lymphocytes % 9 % (10-50); Monocytes % 2 % (2-9); Neutrophils % 89 % (42-76); Platelet Estimate Normal; RBC Morphology Normal; Total Cells Counted 100
--- NOTE | 2020-10-18 08:17 | HMH.ACPN2 ---
Internal Medicine - PN: Subj *Date: 10/18/20 *Time: 08:17 Interval history: Patient feels a little better than yesterday, continues to have some dyspnea. Continues to have a cough. Continues to run high blood pressures. Exam Vital signs and Labs for Last 24 Hours: Temp Pulse Resp BP Pulse Ox 98.3 F 82 22 196/122 H 89 L 10/18/20 04:00 10/18/20 06:25 10/18/20 04:00 10/18/20 04:00 10/18/20 06:25 Laboratory Results - last 24 hr 10/17/20 13:25: WBC 12.6 H, RBC 5.58, Hgb 17.2, Hct 50.3, MCV 90.2, MCH 30.8, MCHC 34.2, RDW 13.0, Plt Count 218, MPV 8.2, Neut % (Auto) 85.0 H, Lymph % (Auto) 8.9 L, [place] % (Auto) 5.2, Eos % (Auto) 0.6, Baso % (Auto) 0.4, Neut # (Auto) 10.7 H, Lymph # (Auto) 1.1, [place] # (Auto) 0.7, Eos # (Auto) 0.1, Baso # (Auto) 0.1, Total Counted 100, Neutrophils % (Manual) 83 H, Lymphocytes % (Manual) 8 L, Monocytes % (Manual) 7, Eosinophils % (Manual) 2, Platelet Estimate Normal, RBC Morphology Normal 10/17/20 13:25: Sodium 138, Potassium 4.0, Chloride 102, Carbon Dioxide 27, Anion Gap 13.0, BUN 11, Creatinine 0.70, Estimated Creat Clear 139, Estimated GFR 124, Est GFR ( Amer) 150, Glucose 106 H, Calcium 9.3 10/17/20 13:25: Procalcitonin 0.073 10/17/20 13:25: Influenza Type A Ag Negative, Influenza Type B Ag Negative 10/17/20 13:25: Chlamy pneumoniae PCR Not detected, Adenovirus (PCR) Not detected, B. pertussis DNA (PCR) Not detected, Coronavirus OC43 (PCR) Not detected, Coronavirus HKU1 (PCR) Not detected, Coronavirus 229E (PCR) Not detected, SARS-CoV-2 (PCR) Not detected, Coronavirus NL63 (PCR) Not detected, Human Metapneumovir PCR Not detected, Influenza A (H1) PCR Not detected, Influ A (H1N1/09) PCR Not detected, Influenza A (H3) PCR Not detected, Influenza Type A (PCR) Not detected, Influenza Type B (PCR) Not detected, M. pneumoniae (PCR) Not detected, Parainfluenza 1 (PCR) Not detected, Parainfluenza 2 (PCR) Not detected, Parainfluenza 3 (PCR) Not detected, Parainfluenza 4 (PCR) Not detected, RSV (PCR) Not detected, Entero/Rhino (PCR) Detected A 10/17/20 13:25: SARS-CoV-2 IgG Ab (Rapid) Negative, SARS-CoV-2 IgM Ab (Rapid) Negative 10/17/20 13:25: Lactate 1.1 10/18/20 06:31: WBC 11.2 H, RBC 5.49, Hgb 17.1, Hct 50.6, MCV 92.0, MCH 31.1, MCHC 33.8, RDW 13.3, Plt Count 234, MPV 8.4, Neut % (Auto) 89.3 H, Lymph % (Auto) 7.1 L, [place] % (Auto) 3.4, Eos % (Auto) 0.1, Baso % (Auto) 0.1, Neut # (Auto) 10.0 H, Lymph # (Auto) 0.8, [place] # (Auto) 0.4, Eos # (Auto) 0.0, Baso # (Auto) 0.0, Total Counted 100, Neutrophils % (Manual) 89 H, Lymphocytes % (Manual) 9 L, Monocytes % (Manual) 2, Platelet Estimate Normal, RBC Morphology Normal 10/18/20 06:31: Sodium 138, Potassium 4.4, Chloride 102, Carbon Dioxide 29, Anion Gap 11.4, BUN 14 D, Creatinine 0.60 L, Estimated Creat Clear 157, Estimated GFR 148, Est GFR ( Amer) 180, Glucose 149 H D, Calcium 9.6, Magnesium 2.1 10/18/20 06:31: NT-Pro-B Natriuret Pep 519 H I & O for Last 24 hours: Intake & Output 10/15/20 10/16/20 10/17/20 10/18/20 11:59 11:59 11:59 11:59 Intake Total 370 / 370 Output Total 275 / 275 Balance 95 / 95 Weight 300 lb Narrative: Patient is pleasant, alert. Morbid obesity limits his exam accuracy and complicates all aspects of his care. Fairly good air entry. 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 Heart rate regular. Trace ankle edema. Abdomen soft. Oropharynx clear, no JVD. Neurologically intact. Assessment and Plan (1) Sepsis Status: Acute Category: Medical Code(s): A41.9 - Sepsis, unspecified organism (2) Acute hypoxemic respiratory failure Status: Acute Category: Medical Code(s): J96.01 - Acute respiratory failure with hypoxia (3) Community acquired pneumonia Status: Acute Category: Medical Code(s): J18.9 - Pneumonia, unspecified organism (4) Obesity, Class III, BMI 40-49.9 (morbid obesity) Status: Chronic Category: Medical Code(s): E66.01 - Morbid (severe) obesity due to excess calories
--- NOTE | 2020-10-18 11:19 | HMH.PHAVTE ---
[facility] Pharmacy VTE Monitoring - Patient Demographics Admission date: 10/17/20 Report Date: 10/18/20 Time: 11:19 Allergies/Adverse Reactions: Patient Allergies No Known Allergies Allergy (Verified 05/05/20 01:13) Height: 1.75 m Weight: 136.078 kg Patient Problems: Current Active Problems Pneumonia (Acute) Community acquired pneumonia (Acute) Hypoxia (Acute) Acute hypoxemic respiratory failure (Acute) Obesity, Class III, BMI 40-49.9 (morbid obesity) (Chronic) Tobacco use disorder (Chronic) Hypertension (Chronic) Sepsis (Acute) - VTE Risk Labs: VTE Related Lab Results Hgb 17.1 g/dL (14.1-18.0) 10/18/20 06:31 Hct 50.6 % (42.0-52.0) 10/18/20 06:31 Plt Count 234 K/mm3 (142-424) 10/18/20 06:31 BUN 14 mg/dl (9-20) D 10/18/20 06:31 Creatinine 0.60 mg/dl (0.66-1.25) L 10/18/20 06:31 Estimated Creat Clear 157 mL/min (50-200) 10/18/20 06:31 Was VTE Risk Assessment Performed: Yes VTE Score: 8 VTE Risk Level: Moderate Risk - Prophylaxis VTE Prophylaxis Ordered?: Yes Types of VTE Prophylaxis: TEDS Knee High Location of Applied Device: Bilateral Lower Extremeties
--- NOTE | 2020-10-18 14:03 | PC.NURSE ---
RT PLACING PT ON 3L SIMPLE MAX PER PT REQUEST.
--- NOTE | 2020-10-18 16:20 | PC.NURSE ---
HE IS AO*4, ABLE TO MAKE NEEDS KNOW TO STAFF, PT REQUESTED A SIMPLE MASK FOR O2 SUPPORT, I RELAYED THIS TO RT WHO PLACED HIM ON 3L SIMPLE MASK, AT THIS TIME HE IS NOT C/O SOA, PT HAS NOT C/O PAIN, DENIES N/V/D, HE AMBULATES INDEPENDENTLY TO RESTROOM, BP HAS CONTINUED TO BE ELEVATED BUT IMPROVED, PT DENIES GARLAND THIS SHIFT, NO DIAPHORESIS NOTED, WILL CONTINUE TO MONITOR.
[2020-10-19] VITALS (8 sets, daily range): BP systolic 149–186; BP diastolic 86–96; PULSE 75–95; RESP 16–19; TEMP 36.5–36.8; O2SAT 3–98; BMI 44.7
--- NOTE | 2020-10-19 04:20 | PC.NURSE ---
Pt is alert and oriented x4. Pt has rested well with eyes closed this shift. No acute changes noted from previous shift. Tolerated 3lnc O2 well with no c/o SOA. Encouraged use of incentive spirometer. Provided education on IS proper use. Pt able to adequately demonstrate proper use of IS device. Non-productive cough noted intermittently. Bilateral lungs noted diminished with audible wheezes. Adequate urine output noted. Independent ambulation in room, tolerates well. No edema noted. Refused teds. VSS. Remains safe. Call light within reach. Will continue to monitor.
--- NOTE | 2020-10-19 05:55 | PC.NURSE ---
95% RA sat this am. Weaned O2 to 1.5 lnc at this time. Will continue to wean O2 this am, pt tolerating.
--- NOTE | 2020-10-19 08:24 | HMH.ACPN2 ---
Internal Medicine - PN: Subj *Date: 10/19/20 *Time: 08:24 Interval history: Patient did well through the night, oxygen levels have been able to be weaned down to 1.5 L, he was able to tolerate room air saturations for a couple of hours. He reports that he feels better, continues to have somewhat of a dry cough. No chest pain, no edema. Exam Vital signs and Labs for Last 24 Hours: Temp Pulse Resp BP Pulse Ox 97.7 F 81 16 168/96 H 96 10/19/20 04:00 10/19/20 06:17 10/19/20 04:00 10/19/20 04:00 10/19/20 06:17 I & O for Last 24 hours: Intake & Output 10/16/20 10/17/20 10/18/20 10/19/20 11:59 11:59 11:59 11:59 Intake Total 730 / 730 300 / 300 Output Total 275 / 275 825 / 825 Balance 455 / 455 -525 / -525 Weight 300 lb 302 lb 5 oz - Constitutional no acute distress - *Routine HEENT Exam Head: Present: normocephalic Eye: Present: EOMI, PERRL ENT: Present: mucous membranes moist - *Routine Neck Exam Present: supple. Absent: lymphadenopathy - *Routine Respiratory Exam Present: rhonchi, wheezes Comments: Better air movement than yesterday - *Routine Cardiovascular Exam Present: RRR - *Routine Abdominal Exam Present: soft, normoactive bowel sounds. Absent: tenderness - *Routine Extremities Exam Absent: cyanosis, clubbing, edema - *Routine Skin Exam Present: warm. Absent: rash - *Routine Neurological Exam Present: alert, oriented X3 Assessment and Plan (1) Sepsis Status: Acute Category: Medical Code(s): A41.9 - Sepsis, unspecified organism (2) Acute hypoxemic respiratory failure Status: Acute Category: Medical Code(s): J96.01 - Acute respiratory failure with hypoxia (3) Community acquired pneumonia Status: Acute Category: Medical Code(s): J18.9 - Pneumonia, unspecified organism (4) Obesity, Class III, BMI 40-49.9 (morbid obesity) Status: Chronic Category: Medical Code(s): E66.01 - Morbid (severe) obesity due to excess calories (5) Tobacco use disorder Status: Chronic Category: Medical Code(s): F17.200 - Nicotine dependence, unspecified, uncomplicated (6) Hypertension Status: Chronic Qualifiers: Hypertension type: essential hypertension Qualified Code(s): I10 - Essential (primary) hypertension Category: Medical Code(s): I10 - Essential (primary) hypertension - Assessment and plan all Dx Assessment and Plan for all problems:: Continue current antibiotic therapy. Continue to wean oxygen. If patient is able to get off oxygen this afternoon feels good would consider discharged home with echo as outpatient. Otherwise we will watch overnight and get echo tomorrow given his high BNP levels.
--- NOTE | 2020-10-19 11:40 | PC.NURSE ---
PT ROOM AIR SAT IS 94% AT THIS TIME, NO C/O SOA NOTED, WILL CONTINUE TO MONITOR.
--- NOTE | 2020-10-19 13:04 | HMH.DCSUM ---
General - General Admission date:: 10/17/20 Discharge date: 10/19/20 HPI HPI: Mr. Westbrook is a 40-year-old male who presents with respiratory distress who presents with 3-4 days of worsening shortness of breath, tachycardia, tachypnea. Denies fevers, CP, GARLAND, Nausea and vomiting. His symptoms of upper respiratory infection have worsened too over this time. On presentation to the ER, noted to be tachypneic and hypoxemic. Suspected viral source such as COVID-19 pneumonia or bacterial pneumonia. was found to be negative for COVID, however due to new O2 requirement, admitted for respiratory failure to Medicine for further management. On my assessment, he remains dyspneic after breathing treatment and requiring 3L NC O2. Reviewed labs and imaging demonstrating right lower lobe airspace disease as well as diffuse interstitial fullness. reports an extensive smoking Hx with ~2pk/day for 20-25 yrs until recently. Was admitted 1 mo ago with similar infection, unable to smoke more than 1pk/day since last infection. Hospital Course Hospital Course: Patient was admitted to hospital, diagnostic work up was undertaken revealing x-ray consistent with viral pneumonia and PCR testing negative for betancourt virus 19 but positive for rhino/enterovirus. He did have an ongoing oxygen requiring and nebulizers and steroids as well as community acquired pneumonia antibiotic coverage was continued. He improved in a stepwise fashion over the next 2-3 days. Was noted to have an elevated brain natruretic peptide. However this morning his nausea requirement resolved and he wished to be discharged home. Plan will be to discharge him home with antibiotics, steroids, his inhalers and blood pressure medication. I will see him in my office in 3 days and we will evaluate at that point for outpatient echocardiogram and response to outpatient blood pressure medications. Objective Vital signs: Temp Pulse Resp BP Pulse Ox 98.2 F 86 19 160/90 H 95 10/19/20 12:00 10/19/20 12:00 10/19/20 12:00 10/19/20 12:00 10/19/20 12:00 no acute distress, morbidly obese - *Routine HEENT Exam Head: Present: normocephalic Eye: Present: EOMI, PERRL ENT: Present: mucous membranes moist - *Routine Neck Exam Present: supple - *Routine Respiratory Exam Present: rhonchi - *Routine Cardiovascular Exam Present: RRR - *Routine Abdominal Exam Present: soft, normoactive bowel sounds. Absent: tenderness - *Routine Extremities Exam Absent: cyanosis, clubbing, edema - *Routine Skin Exam Present: warm. Absent: rash - Detailed Eye Exam Eyelids: Bilateral normal inspection DS: Diagnosis - Discharge Diagnosis (1) Sepsis Status: Resolved (2) Acute hypoxemic respiratory failure Status: Resolved (3) Community acquired pneumonia Status: Acute (4) Obesity, Class III, BMI 40-49.9 (morbid obesity) Status: Chronic (5) Tobacco use disorder Status: Chronic (6) Hypertension Status: Chronic Discharge Plan - Patient Discharge Instructions ACTIVITY: Continue current activity Patient Instructions: Essential Hypertension, DI for Pneumonia -- Adult, DI for Sepsis -- Adult, DI for Respiratory Failure, DI for Hypoxia - Follow up Plan Follow up with: Nathen Taylor MD [Staff Physician] - 10/22/20 8:30 am Disposition: Home, Self-Usp Medications: Home Medications Medication Instructions Recorded Confirmed Type Losartan Potassium 25 mg PO DAILY 10/17/20 10/17/20 History Metoprolol Succinate [Toprol XL 25 mg PO BID 10/17/20 10/17/20 History 25mg tablet] Amlodipine Besylate [Norvasc 5mg 5 mg PO DAILY #30 tab 10/19/20 Rx tablet] Azithromycin [Zithromax 250mg 250 mg PO DIRECTED #6 tab 10/19/20 Rx tab] Irbesartan [Avapro 75mg 75 mg PO DAILY #30 tab 10/19/20 Rx tablet] carvediloL [Coreg 12.5mg 12.5 mg PO BID #60 tab 10/19/20 Rx Tablet] predniSONE [Deltasone 20mg 20 mg
--- NOTE | 2020-10-19 13:33 | HMH.PHAINT ---
DISCHARGE COUNSELING COMPLETED ON PATIENT. NEW PRESCRIPTIONS INCLUDE AVAPRO 75MG(REPLACING LOSARTAN), COREG 12.5MG(REPLACING METOPROLOL), PREDNISONE 20MG, AZITHROMYCIN, AND AMLODIPINE 5MG. ALL NEW PRESCRIPTIONS WERE SENT TO [facility] IN [place]. PATIENT VERBALIZED UNDERSTANDING AND HAD NO QUESTIONS AT THIS TIME. -VIPUL MORA, ALDAD
== END 2020-10-19 14:13 | disposition home or self-care (01) | DRG 193 ==
LOC: ER 14:47 → 2ND 10-18 06:09
PROVIDERS: Admitting Provider Internal Medicine Adolescent Medicine; Emergency Provider Student in an Organized Health Care Education/Training Program; Visit Provider Internal Medicine Adolescent Medicine
DX: J18.9 Pneumonia, unspecified organism (principal); J96.01 Acute respiratory failure with hypoxia; Z68.41 Body mass index [BMI] 40.0-44.9, adult; Z72.0 Tobacco use; E66.01 Morbid (severe) obesity due to excess calories; I10 Essential (primary) hypertension
CPT/HCPCS: 71045; 80048; 83605; 83735; 83880; 84145; 85007; 85025; 86328; 87275; 87276; 87581; 87633; 87798; 94640; 94761; 96365; 96375; 99284; J0456

== ENCOUNTER 2021-10-30 20:08 | Emergency (ER) | payer OTHER, SELFPAY ==
[2021-10-30 20:18] VITALS: BP 180/100; PULSE 98; RESP 16; TEMP 36.9; O2SAT 98; BMI 42.8
[2021-10-30 20:33] VITALS: PULSE 93; RESP 18; TEMP 36.8; O2SAT 98; BMI 42.8
--- NOTE | 2021-10-30 20:36 | XR_ITS ---
PROCEDURE INFORMATION: Exam: XR Chest Exam date and time: 10/30/2021 8:36 PM Age: 41 years old Clinical indication: Cough TECHNIQUE: Imaging protocol: XR of the chest. Views: 2 views. COMPARISON: CR XR CHEST PORTABLE 10/17/2020 2:13 PM FINDINGS: Lungs: Mild prominence of central bronchovascular markings suggesting bronchitis. No evidence of consolidation. There is no evidence of pulmonary vascular congestion. Pleural spaces: Unremarkable. No pleural effusion. No pneumothorax. Heart/Mediastinum: Unremarkable. No cardiomegaly. The superior mediastinum is not widened. Bones/joints: Degenerative changes of the acromioclavicular joints and thoracic spine. IMPRESSION: Bronchitis is suspect. No evidence of alveolar consolidation. Pulmonary vascular markings are normal.
--- NOTE | 2021-10-30 21:15 | HMH.EDUTC ---
[facility] [place] [facility] [place] Clinical Impression: Elevated blood pressure reading Acute bronchitis Qualifiers: Bronchitis organism: unspecified organism Qualified Code(s): J20.9 - Acute bronchitis, unspecified Disposition: Home, Self-Care Condition on Discharge: Good Instructions: Acute Bronchitis, DI for Acute Bronchitis, DI for COVID-19 (Suspected or Confirmed ) Additional Instructions: Drink plenty of fluids. Take tylenol or ibuprofen for pain or fever. Take the medications as directed. Follow up with your regular doctor. GO TO THE ER FOR ANY WORSENING SYMPTOMS Quarantine until you know the results of your covid-19 test. If it is positive, the health department should call you and give you further instructions about your length of Quarantine and other things. Notify your school or workplace of your results and follow their instructions regarding return to work/school. Follow up with your primary care physician regarding your elevated blood pressure. Don't take any otc cold medications. Prescriptions: Amoxicillin/Potassium Clav [Augmentin 875-125 Tablet] 1 tab PO Q12H 10 Days #20 tab Transmission Status: Received by [id number] methylPREDNISolone [Medrol] 4 mg PO DIRECTED 6 Days #21 packet Transmission Status: Received by [id number] Referrals: Provider,Referral, [Primary Care Provider] - Time of Disposition: 21:38 Medical Decision Making - Medical Records Medical records reviewed: No: I reviewed the patient's medical records. - Vernon Inquiry Pt receiving controlled substance: No Vital Signs: 10/30/21 20:18 10/30/21 20:33 10/30/21 21:30 Temperature 98.4 F 98.3 F 98.3 F Temperature Source Oral Oral Pulse Rate 93 H Pulse Rate [Right] 98 H 93 H Respiratory Rate 16 18 18 Blood Pressure 180/100 H Blood Pressure [Right Arm] 180/100 H Blood Pressure Mean [Right Arm] 126 02 Sat by Pulse Oximetry 98 98 - Lab Data Lab results reviewed: Yes: I reviewed the patient's lab results. Orders (Tests/Meds): ED MEDICATIONS Discontinued Medications Generic Name Dose Route Start Last Admin Trade Name Freq PRN Reason Stop Dose Admin Ceftriaxone Sodium 1 gm 10/30/21 21:19 10/30/21 21:24 Ceftriaxone 1gm Vial IM 10/30/21 21:20 1 gm ONCE ONE Administration Lidocaine HCl 0 ml 10/30/21 21:20 10/30/21 21:24 Lidocaine 1% 5ml Pf Vial IM 10/30/21 21:21 2 ml ONCE ONE Administration Methylprednisolone Sodium Succinate 125 mg 10/30/21 21:19 10/30/21 21:25 Methylprednisolone Sod Succ 125mg Vial IM 10/30/21 21:20 125 mg ONCE ONE Administration ORDERS Category Date Time Status Covid-19 Nasal PCR ([facility]) Routine Lab 10/30/21 21:17 Received - Radiology Data #1 Image(s): Chest Image Reviewed: Yes I reviewed the patient's radiology image, Yes I have reviewed radiologist's interpretation Preliminary Findings: Abnormal, No Infiltrates Seen PROCEDURE INFORMATION: Exam: XR Chest Exam date and time: 10/30/2021 8:36 PM Age: 41 years old Clinical indication: Cough TECHNIQUE: Imaging protocol: XR of the chest. Views: 2 views. COMPARISON: CR XR CHEST PORTABLE 10/17/2020 2:13 PM FINDINGS: Lungs: Mild prominence of central bronchovascular markings suggesting bronchitis. No evidence of consolidation. There is no evidence of pulmonary vascular congestion. Pleural spaces: Unremarkable. No pleural effusion. No pneumothorax. Heart/Mediastinum: Unremarkable. No cardiomegaly. The superior mediastinum is not widened. Bones/joints: Degenerative changes of the acromioclavicular joints and thoracic spine. IMPRESSION: Bronchitis is suspect. No evidence of alveolar consolidation. Pulmonary vascular markings are normal. [facility] [place] [facility] [place] HPI - General Stated complaint: cough,sob Time Seen by Provider: 10/30/21 21:00 Mode of Arrival: Ambulatory [facility]
[2021-10-30 21:30] VITALS: BP 180/100; PULSE 93; RESP 18; TEMP 36.8
== END 2021-10-30 21:47 | disposition home or self-care (01) ==
LOC: ER 20:25 → UTC 20:26
PROVIDERS: Emergency Provider Nurse Practitioner Family
DX: J20.9 Acute bronchitis, unspecified (principal); Z20.822 Contact with and (suspected) exposure to COVID-19; I16.0 Hypertensive urgency
CPT/HCPCS: 71046; 96372; 99202; C9803; G0463; U0003; U0005

== ENCOUNTER 2021-11-18 09:44 | Emergency (ER) | payer OTHER, SELFPAY ==
--- NOTE | 2021-11-18 12:59 | ECG_ITS ---
APPROVED REPORT Exam: Resting ECG HR:105 bpm ECG Measurements Heart Rate 105 AXES HI 180 P 74 QRSd 94 QRS 5 QT 366 T 92 QTc 483 Conclusion Sinus tachycardia Possible Left atrial enlargement Abnormal QRS-T angle, consider primary T wave abnormality Abnormal ECG Electronically signed by : Nathen Taylor MD 11/18/2021 20:32:13
[2021-11-18 13:05] VITALS: BP 252/170; PULSE 108; RESP 18; TEMP 36.9; O2SAT 98; BMI 41.3
--- NOTE | 2021-11-18 13:15 | XR_ITS ---
PROCEDURE: XR CHEST PORTABLE CLINICAL HISTORY: Shortness of breath COMPARISON: CR XR CHEST 2V from 08/31/2020 CR XR CHEST PORTABLE from 10/17/2020 CR XR CHEST 2V from 10/30/2021 FINDINGS: Cardiomegaly without failure. Increased density right lower lobe medially suggesting atelectasis or infiltrate. No acute bony abnormalities. IMPRESSION: Atelectasis or infiltrate in the right lower lung zone with cardiomegaly Dictated by: Samy Verdugo MD 11/18/2021 13:52 Samy Verdugo MD in [place] 11/18/2021 13:52
[2021-11-18 13:23] LABS: Basophils # 0.1 K/mm3 (0-0.2); Basophils % 1.3 % (0.1-2.0); Eosinophils # 0.1 K/mm3 (0.0-0.4); Eosinophils % 1.6 % (0.1-12.0); Hematocrit 47.6 % (42.0-52.0); Hemoglobin 15.6 g/dL (14.1-18.0); Lymphocytes # 2.2 K/mm3 (0.7-4.5); Lymphocytes % 23.6 % (10-50); Mean Corpuscular HGB Conc 32.8 g/dL (31.8-35.4); Mean Corpuscular Hemoglobin 29.7 pg (27.0-31.2); Mean Corpuscular Volume 90.4 fl (80-94); Mean Platelet Volume 8.5 fl (7.4-10.4); Monocytes # 0.7 K/mm3 (0.1-1.0); Monocytes % 7.5 % (1.7-9.3); Platelet Count 220 K/mm3 (142-424); Red Blood Count 5.27 M/mm3 (4.60-6.20); Red Cell Distribution Width 14.4 % (11.5-17.5); White Blood Count 9.1 K/mm3 (4.8-10.8)
[2021-11-18 13:25] LABS: Chloride 105 mmol/L (98-107); Potassium 3.7 mmoL/L (3.5-5.1); Sodium 140 mmol/L (136-145)
[2021-11-18 13:28] LABS: Alanine Aminotransferase 25 U/L (12-78); Albumin Level 4.1 g/dl (3.5-5.0); Albumin/Globulin Ratio 1.3 (1.1-1.8); Alkaline Phosphatase 66 U/L (38-126); Anion Gap 9.7 mEq/L (5-15); Aspartate Amino Transferase 37 U/L (17-59); Bilirubin,Total 0.3 mg/dl (0.2-1.3); Blood Urea Nitrogen 16 mg/dl (9-20); Carbon Dioxide 29 mmol/L (22.0-30.0); Creatinine Clearance Estimated 107 mL/min (50-200); Estimated Glomerular Filt Rate 93 ml/min (>60); GFR (African American) 112 ML/MIN (>60); Globulin 3.2 g/dL (1.3-3.2); Total Protein,Serum 7.3 g/dl (6.3-8.2)
[2021-11-18 13:29] LABS: Calcium 8.9 mg/dl (8.4-10.2); Glucose 107 mg/dl (74-100)
[2021-11-18 13:30] LABS: Activated Partial Thrombo Time 25.3 seconds (22.8-30.6); INR 0.95 (0.9-1.1); Prothrombin Time 10.8 seconds (10.1-12.5)
[2021-11-18 13:38] LABS: NT Pro Brain Natriuretic Pep. 490 pg/mL (0-125)
[2021-11-18 13:42] LABS: Troponin I 0.06 ng/ml (0.00-0.034)
--- NOTE | 2021-11-18 15:16 | HMH.EDGENADL ---
ED Disposition Clinical Impression: Congestive heart failure Disposition: Home, Self-Care Condition on Discharge: Fair Referrals: Provider,Referral, [Primary Care Provider] - - Critical Care Critical Care Time: No Attestation: On 11/18/21, the high probability of a clinically significant, sudden or life threatening deterioration of the following system(s) required my full and direct attention, intervention and personal management. The time I documented below is in addition to time spent performing reported procedures but includes the following listed in this critical care notation. Medical Decision Making - Medical Records Medical records reviewed: Yes: I reviewed the patient's medical records. - Vernon Inquiry Pt receiving controlled substance: No Vernon was queried for this patient: No Vital Signs: 11/18/21 13:05 Temperature 98.4 F Temperature Source Oral Pulse Rate [Right Radial] 108 H Respiratory Rate 18 Blood Pressure [Left Arm] 252/170 H Blood Pressure Mean [Left Arm] 197 Blood Pressure Source [Left Arm] Manual Cuff/ Auscultation Blood Pressure Position [Left Arm] Sitting 02 Sat by Pulse Oximetry 98 Oxygen Delivery Method Room Air - Lab Data Lab results reviewed: Yes: I reviewed the patient's lab results. Lab Results 11/18/21 13:11: WBC 9.1, RBC 5.27, Hgb 15.6, Hct 47.6, MCV 90.4, MCH 29.7, MCHC 32.8, RDW 14.4, Plt Count 220, MPV 8.5, Neut % (Auto) 66.0, Lymph % (Auto) 23.6, Pratt % (Auto) 7.5, Eos % (Auto) 1.6, Baso % (Auto) 1.3, Neut # (Auto) 6.0, Lymph # (Auto) 2.2, Pratt # (Auto) 0.7, Eos # (Auto) 0.1, Baso # (Auto) 0.1 11/18/21 13:11: PT 10.8, INR 0.95, APTT 25.3 11/18/21 13:11: Sodium 140, Potassium 3.7, Chloride 105, Carbon Dioxide 29, Anion Gap 9.7, BUN 16, Creatinine 0.90, Estimated Creat Clear 107, Estimated GFR 93, Est GFR ( Amer) 112, Glucose 107 H, Calcium 8.9, Total Bilirubin 0.3, AST 37, ALT 25, Alkaline Phosphatase 66, Troponin I 0.06 H, NT-Pro-B Natriuret Pep 490 H, Total Protein 7.3, Albumin 4.1, Globulin 3.2, Albumin/Globulin Ratio 1.3 11/18/21 16:31: Troponin I 0.06 H Result diagrams: 11/18/21 13:11 11/18/21 13:11 Orders (Tests/Meds): ED MEDICATIONS Discontinued Medications Generic Name Dose Route Start Last Admin Trade Name Nely PRN Reason Stop Dose Admin Furosemide 40 mg 11/18/21 14:18 11/18/21 14:44 Furosemide 40mg/4ml Vial IV 11/18/21 14:19 40 mg ONCE ONE Administration ORDERS Category Date Time Status Troponin I Q3H Lab 11/18/21 19:15 Ordered Medical Decision Narrative: Patient is a 41-year-old male with past medical history of hypertension presenting to the ED with shortness of breath. Patient is awake, alert, not in acute distress. Patient is hemodynamically stable, afebrile. Patient's physical exam is remarkable for 1+ pitting edema of patient's lower extremities otherwise exam is benign. DDX includes but is not limited to uncontrolled hypertension, hypertensive urgency, hypertensive emergency, congestive heart failure. Given this a CBC, CMP, and, EKG, chest x-ray, BNP is performed. Lab work is remarkable for a troponin of 0.06, second troponin, BNP 400s. Patient given IV Lasix. Feeling much better after the Lasix, second troponin was 0.06, no delta had noted. At this point patient is stable for discharge. Patient will follow up with a family care physician and cardiology regarding his symptoms and be started on antihypertensives. Patient is agreeable to this plan. Patient is given strict return precautions and follow-up instructions. General Adult HPI - General Chief complaint: Shortness of Breath/Dyspnea Stated complaint: sore throat, cough, h/a, body aches Time Seen by Provider: 11/18/21 13:16 Mode of Arrival: Ambulatory Limitations: No Limitations Description of Symptoms (Recalled from ER Triage Doc. by RN): Pt c/o bilateral lower leg edema, SOA, cough and CP with inspiration. Pt states that this has been going
[2021-11-18 17:13] LABS: Troponin I 0.06 ng/ml (0.00-0.034)
[2021-11-18 18:59] VITALS: BP 198/121; PULSE 94; RESP 18; TEMP 36.9; O2SAT 97
== END 2021-11-18 19:00 | disposition home or self-care (01) ==
PROVIDERS: Emergency Provider Emergency Medicine
DX: I50.9 Heart failure, unspecified (principal); I10 Essential (primary) hypertension; F17.210 Nicotine dependence, cigarettes, uncomplicated
CPT/HCPCS: 71045; 80053; 83880; 84484; 85025; 85610; 85730; 93005; 96374; 99282

== ENCOUNTER → 2021-11-19 12:53 | Outpatient (CLI) | payer OTHER, SELFPAY ==
--- NOTE | 2021-11-19 12:54 | CA_ITS ---
APPROVED REPORT EXAM: Comprehensive 2D, Doppler, and color-flow Echocardiogram Power Driven Brush Maker: SAKINA Phillips, RVS Ht: 5 ft 9 in Wt: 313lbs BSA: 2.50 BP: 223/133 mmHg Indications: malignant HTN, cardiomegaly, Obesity, Smoker, SOB, GAYTAN. Technically limited exam due to lung impedence with morbid obesity. Patient declined IV access for contrast imaging 2D Dimensions LVDd 6.34 cm LA Volume 93.00 mL Aortic Root 2.99 cm LA Volume Index 37.20 mL/m2 (M/F) 16-34 Left Atrium 5.17 cm LVOT 2.06 cm (M/F) 1.5-2.5 M-Mode Dimensions RVDd 2.80 cm (0.9-2.6) LA Diam 4.48 cm (1.9-4.0) LVDd 6.64 cm (3.5-5.7) Ao Diam 3.01 cm (2.0-3.7) LVDs 4.80 cm (3.5-5.7) IVSd 0.93 cm (0.6-1.1) PWd 0.89 cm (0.6-1.1) EF (Teich) 50.80% EPSs 2.47 cm FS 26.50% EDV (Teich) 218.30 mL ESV (Teich) 107.50 mL LV Diastology E Decel Time 167.00 (160-240 msec) E/A Ratio 4.16 Pulm Vein s 14.00 cm/sec Aortic Valve LVOT Max 121.00 (70-110 cm/s) LVOT VTI 17.27 cm AoV Peak Michael. 151.00 (50-130 cm/s) AO Peak GR. 9.10 mmHg AO Mean GR. 4.50 (<5 mmHg) AO VTI 21.86 (18-25 cm) ZEB (VTI) 2.63 (2.5-4.5 cm2) Mitral Valve MV E Max Michael. 113.00 (40-130 cm/s) MV A Velocity 27.00 (40-130 cm/s) E/A Ratio 4.16 MV Decel. Time 167.00 (160-240 ms) MV Mean Gr. 3.50 (<2mmHg) MV PHT 49.00 ms Pulmonary Valve PV Peak Velocity 106.00 (50-150 cm/s) Left Ventricle Left atrium is mildly enlarged, left ventricle is mildly dilated, there is preserved left ventricular systolic function, visually estimated ejection fraction 55% with no regional wall motion abnormality, diastolic parameters are inconclusive. Right Ventricle Right atrium and right ventricle are qualitatively mildly enlarged with normal contractility. Aortic Valve Aortic valve is grossly normal, there is no aortic stenosis or aortic insufficiency. Mitral Valve Mitral valve leaflets are minimally calcified, there is no mitral stenosis, there is trace mitral regurgitation. Tricuspid Valve Tricuspid valve grossly normal, there is trace tricuspid regurgitation, tricuspid regurgitation jet velocity is inadequate for calculation of the right ventricular systolic pressure. Pulmonic Valve Pulmonic valve is poorly visualized. Great Vessels Aortic root is normal size. Inferior vena cava is poorly visualized. Pericardium No significant pericardial effusion noted. Conclusion 1. Technically difficult study because of the patient factors and poor acoustic windows. Mild biatrial normal, normal left ventricular size, visually estimated ejection fraction 55% with no regional wall motion abnormality, diastolic parameters are inconclusive. 2. Mildly enlarged right ventricle with normal contractility. 3. Trace mitral and tricuspid regurgitation. 4. No significant pericardial effusion noted. 5. Inferior vena cava is poorly visualized. Electronically signed by : Andrea Rubin MD 11/19/2021 18:40:37
== END ==
PROVIDERS: PCP Internal Medicine Adolescent Medicine; Visit Provider Physician Assistant
DX: I50.9 Heart failure, unspecified (principal); R06.02 Shortness of breath; R00.0 Tachycardia, unspecified; I10 Essential (primary) hypertension; F17.200 Nicotine dependence, unspecified, uncomplicated; E66.01 Morbid (severe) obesity due to excess calories; Z68.42 Body mass index [BMI] 45.0-49.9, adult
CPT/HCPCS: 93306

== ENCOUNTER → 2021-11-24 09:33 | Outpatient (CLI) | payer OTHER, SELFPAY ==
[2021-11-24 10:49] LABS: Anion Gap 12.3 mEq/L (5-15); Blood Urea Nitrogen 17 mg/dl (9-20); Calcium 9.6 mg/dl (8.4-10.2); Carbon Dioxide 30 mmol/L (22.0-30.0); Chloride 104 mmol/L (98-107); Estimated Glomerular Filt Rate 93 ml/min (>60); GFR (African American) 112 ML/MIN (>60); Glucose 102 mg/dl (74-100); Potassium 4.3 mmoL/L (3.5-5.1); Sodium 142 mmol/L (136-145)
[2021-11-24 10:57] LABS: NT Pro Brain Natriuretic Pep. 468 pg/mL (0-125)
[2021-11-24 11:39] LABS: Troponin I 0.03 ng/ml (0.00-0.034)
== END ==
PROVIDERS: Urology; Visit Provider Physician Assistant
DX: R06.02 Shortness of breath (principal); R07.9 Chest pain, unspecified; I50.9 Heart failure, unspecified; I11.0 Hypertensive heart disease with heart failure; R00.0 Tachycardia, unspecified; E66.01 Morbid (severe) obesity due to excess calories; F17.200 Nicotine dependence, unspecified, uncomplicated; R06.83 Snoring; R40.0 Somnolence; Z68.42 Body mass index [BMI] 45.0-49.9, adult
CPT/HCPCS: 36415; 80048; 83880; 84484

== ENCOUNTER → 2021-11-25 08:19 | Outpatient (CLI) | payer OTHER, SELFPAY ==
--- NOTE | 2021-11-25 08:20 | CA_ITS ---
APPROVED REPORT Music Coordinator: Pina [facility], RVS Indications: Malignant htn, Smoker, Obese Risk Factors Hypertension Hyperlipidemia Obesity Smoking Renal Artery Doppler Proximal (R) 156.8/ cm/sec Distal (R) 115.8/ cm/sec Renal Aorta Ratio (R) 1.38 Segmental A. (R) / cm/sec RI: 0.60 Segmental A. Sup (R) 24.0/9.0 cm/sec Segmental A. Mid (R) 18.0/7.0 cm/sec Segmental A. Inf (R) 17.0/7.0 cm/sec Proximal (L) 153.0/ cm/sec Mid (L) 161.8/ cm/sec Distal (L) 132.9/ cm/sec Renal Aorta Ratio (L) 1.43 Segmental A. (L) / cm/sec RI: 0.58 Segmental A. Sup (L) 28.0/12.0 cm/sec Segmental A. Mid (L) 27.0/13.0 cm/sec Segmental A. Inf (L) 16.0/6.0 cm/sec Renal Measurements Kidney Size (R) 12.9x5.8 cm Cortical Thickness (R) 1.4 cm Kidney Size (L) 13.2x5.0 cm Cortical Thickness (L) 1.4 cm Findings An attempt was made to evaluate the abdominal aorta, the right and left renal arteries and kidneys, utilizing duplex ultrasonography and color flow doppler. This was a technically difficult and therefore limited exam due toExtreme body habitus and the presence of bowel gas and abdominal movement with respiration. No gross evidence of renal artery occlusive disease in either renal artery, However incomplete doppler assessment due to extreme body habitus and bowel impedence. Electronically signed by : Samy Verdugo MD 11/26/2021 15:00:59
== END ==
PROVIDERS: PCP Internal Medicine Adolescent Medicine; Visit Provider Urology
DX: R06.02 Shortness of breath (principal); R07.9 Chest pain, unspecified; I50.9 Heart failure, unspecified; E66.01 Morbid (severe) obesity due to excess calories; F17.200 Nicotine dependence, unspecified, uncomplicated; R06.83 Snoring; R40.0 Somnolence; Z68.42 Body mass index [BMI] 45.0-49.9, adult; I11.0 Hypertensive heart disease with heart failure
CPT/HCPCS: 93976

== ENCOUNTER → 2021-12-01 06:01 | Outpatient (CLI) | payer OTHER, SELFPAY ==
--- NOTE | 2021-12-01 06:02 | NM_ITS ---
APPROVED REPORT Exam: Nuclear Stress Test Indication: SOB, Fatigue, HTN, CHF, Tobacco use, Family history Patient Location: Outpatient Stress Tech: Terra Padilla [place] Tech:Kelly Esposito, ARRT, RT (R)(N) Ht: 5 ft 9 in Wt: 310 lbs HR: 76 bpm BP: 169/121 mmHg BSA: 2.49 m2 BMI: 45.7 History: SOB, Fatigue, HTN, CHF, Tobacco use, Family history Procedure: Patient received a 0.4 mg of intravenous Lexiscan, resting heart rate 76 bpm, resting blood pressure 169/121 mmHg, with Lexiscan maximum heart rate achived was 95 bpm which is Less than 85 % of the maximum predicted heart rate and blood pressure was 171/101 mmHg. With Lexiscan, patient denied any complaint of chest pain. Electrocardiogram Resting electrocardiogram showed sinus rhythm nonspecific ST-T changes, with Lexiscan there is less than 1.[address] segment depression noted from the baseline EKG. The EKG portion of the Lexiscan is nondiagnostic. Cardiac Stress and Resting SPECT Images: Cardiac Stress and Resting SPECT images were obtained using technetium 99m Myoview 31.3 mCi stress and 10.41 mCi at rest. Patient states too SOB to lay on stomach for prone images. Gated SPECT for analysis of segmental wall motion and calculation of the ejection fraction also done. Cardiac stress and resting SPECT images show reversible ischemia involving the inferior wall, computer derived ejection fraction is 33%, there is moderate inferior wall hypokinesis. Right ventricle is mildly enlarged with normal contractility. Conclusion: 1. The EKG portion of the Lexiscan is nondiagnostic. 2. Scintigraphic evidence of reversible ischemia involving the inferior wall, computer derived ejection fraction of 33% with moderate inferior wall hypokinesis, right ventricle is mildly enlarged with normal contractility. 3. Abnormal Lexiscan Myoview study. Electronically signed by : Andrea Rubin MD 12/01/2021 19:25:34
--- NOTE | 2021-12-01 06:02 | CA_ITS ---
APPROVED REPORT Exam: Pharmacologic Technologist: Terra Padilla Ht: 5 ft 9 in Wt: 311 lbs BSA: 2.49 m2 HR: 76 bpm BP: 169/121 mmHg Indications: Hypertension, Shortness of Breath, Chest pain Medical History Medications: Irbesartan,,,,, Carvedilol,,,,, SpirOnolactone,,,,, Furosemide,,,,, Stress Test Details Test: LEXISCAN HR Resting HR: 75 bpm Max Heart Rate (APMHR): 178.910229 bpm Max HR Achieved: 96 bpm Target HR (85% APMHR): 151.559968 bpm % of APMHR: 53.93 Recovery HR: 79 bpm BP Resting BP: 169.0/121.0 mmHg Max BP: 190.0/118.0 mmHg Recovery BP: 185.0/109.0 mmHg ECG Resting ECG: Normal sinus rhythm, LVH with strain pattern Clinical Exercise duration: 04:00 min Highest Stage Achieved: Exercise capacity: 1.0 METs Stress ECG Conclusion Symptoms: Shortness of air, malaise, mild nausea. No chest pain. Arrhythmias/Ectopy: None ST-T Changes: Mild exaggeration of baseline abnormalities. Conclusion: Unremarkable Lexiscan stress. Myoview images reported separately. Test Summary RECOVERY 03:22 . . 86 . 185/109 . . REST 03:20 . . 75 . 169/121 . . Stage 1 . . . . . . . Myoview Injected Stage 1 01:00 . . 74 . . . . Stage 2 01:00 . . 93 . . . . Stage 3 01:00 . . 90 . 171/101 . . Stage 4 01:00 . . 88 . 190/118 . Stop exercise at 04:00 RECOVERY 01:00 . . 81 . . . . RECOVERY 02:00 . . 80 . 178/128 . . RECOVERY 03:00 . . 77 . 178/128 . . RECOVERY 03:22 . . 86 . 185/109 . . Electronically signed by : Andrea Rubin MD 12/01/2021 19:17:22
--- NOTE | 2021-12-01 08:11 | HMH.ITSHM ---
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 []SPIRONOLACTONE IRBESARTAN FUROSEMIDE CARVEDILOL
== END ==
PROVIDERS: PCP Internal Medicine Adolescent Medicine; Visit Provider Urology
DX: R06.02 Shortness of breath (principal); R07.9 Chest pain, unspecified; I50.9 Heart failure, unspecified; I11.0 Hypertensive heart disease with heart failure; E66.01 Morbid (severe) obesity due to excess calories; F17.200 Nicotine dependence, unspecified, uncomplicated; G47.33 Obstructive sleep apnea (adult) (pediatric); R40.0 Somnolence; Z68.42 Body mass index [BMI] 45.0-49.9, adult
CPT/HCPCS: 78452; 93017; A9502; J2785

== ENCOUNTER 2022-05-16 20:50 | Emergency (ER) | payer OTHER, SELFPAY ==
[2022-05-16 20:52] VITALS: BP 131/79; PULSE 64; RESP 18; TEMP 36.2; O2SAT 94; BMI 45.8
[2022-05-16 21:06] VITALS: BP 131/79; PULSE 66; O2SAT 93
--- NOTE | 2022-05-16 21:54 | XR_ITS ---
PROCEDURE INFORMATION: Exam: XR Chest Exam date and time: 05/16/2022 9:50 PM Age: 41 years old Clinical indication: Pain; Right-sided; Additional info: Abd pain RT side TECHNIQUE: Imaging protocol: Radiologic exam of the chest. Views: 2 views. COMPARISON: CR XR CHEST PORTABLE 11/18/2021 1:19 PM FINDINGS: Lungs: Normal pulmonary expansion. Pulmonary vasculature grossly normal. No gross pulmonary infiltrates or edema pattern. 12 mm nodular density projecting in the peripheral right mid lung is not identified on comparison chest x-ray 12/22/2017, although similar to other prior chest x-rays back to 08/31/2020. Recommend noncontrast chest CT characterization. Pleural spaces: No pleural effusion. No pneumothorax. Heart/Mediastinum: Heart size normal. No tracheal/mediastinal shift. Bones/joints: No acute osseous abnormalities are identified. Mild-moderate thoracic spondylosis. IMPRESSION: A 12 mm nodular density projects in the anterior right mid lung. Noncontrast chest CT recommended for further assessment.
--- NOTE | 2022-05-16 21:54 | CT_ITS ---
PROCEDURE INFORMATION: Exam: CT Abdomen And Pelvis Without Contrast Exam date and time: 05/16/2022 9:59 PM Age: 41 years old Clinical indication: Abdominal pain; Flank; Right; Additional info: Abd pain TECHNIQUE: Imaging protocol: Computed tomography of the abdomen and pelvis without contrast. Radiation optimization: All CT scans at this facility use at least one of these dose optimization techniques: automated exposure control; mA and/or kV adjustment per patient size (includes targeted exams where dose is matched to clinical indication); or iterative reconstruction. COMPARISON: US CA RENAL ARTERY DUPLEX 11/25/2021 8:32 AM FINDINGS: Lungs: Visualized lung bases are clear. Heart: Heart size normal. Mediastinal space: The visualized distal esophagus is largely contracted without gross abnormality. Liver: Granulomatous calcifications in the liver. Normal contour. No mass lesions. No intrahepatic biliary ductal dilatation. Gallbladder and bile ducts: The gallbladder is partially contracted but otherwise unremarkable. Nondilated common bile duct. Pancreas: Normal. No inflammatory changes or ductal dilation. Spleen: Granulomatous calcifications in the spleen without acute splenic abnormality. Adrenal glands: Normal. No adrenal mass. Kidneys and ureters: No acute abnormalities. No hydronephrosis or hydroureter. No urinary tract stones are identified. There is a low-density circumscribed right renal cortical lesion suggesting renal cyst. No further imaging evaluation is required. Stomach and bowel: The stomach is unremarkable. The small bowel is nondilated with no gross abnormality. No acute colonic abnormalities. Appendix: The appendix is normal in caliber and demonstrates no evidence of appendicitis. Intraperitoneal space: No free fluid or air. Vasculature: Mild atherosclerotic aortoiliac calcification without aneurysm. Lymph nodes: There are enlarged lymph nodes in the bilateral inguinal and external iliac distributions measuring up to 15 mm short axis. Slightly enlarged nodes in the bilateral common iliac distributions. These are nonspecific in nature. Correlate clinically to exclude lymphoproliferative disease. Urinary bladder: The urinary bladder is largely contracted without gross abnormality. Reproductive: Unremarkable as visualized. Bones/joints: No acute osseous abnormalities. Soft tissues: Small fatty left inguinal hernia with no associated bowel herniation or evidence of strangulation.. IMPRESSION: 1. Enlarged bilateral inguinal and iliac nodes, nonspecific. Correlate clinically to exclude lymphoproliferative disease. 2. Small fatty left inguinal hernia with no associated bowel herniation or evidence of strangulation. 3. Additional nonemergent findings detailed above. COMMENTS: Consistent with the [employer]'s Incidental Findings Committee white paper (J Am Kevin Radiol 2018): Any incidental renal lesion less than 1 cm or classified as too small to characterize, or any incidental cystic renal lesion characterized as simple-appearing, is likely benign. No follow-up imaging is recommended for these lesions per consensus recommendations based on imaging criteria.
[2022-05-16 22:17] LABS: Microscopic, Urine URINE MICROSCOPIC (MICROSCOPIC)
[2022-05-16 22:21] LABS: Appearance,Urine CLEAR (Clear); Bilirubin,Urine Negative (Negative); Blood, Urine Negative (Negative); Color,Urine YELLOW (Yellow); Glucose,Urine (UA) Negative (Negative); Ketones,Urine Negative (Negative); Leukocyte Esterase,Urine Negative (Negative); Nitrate,Urine Negative (Negative); Protein,Urine Negative (Negative); Specific Gravity, Urine 1.025 (1.005-1.030); Urobilinogen,Urine 0.2 EU/dl (0.2)
[2022-05-16 22:23] LABS: Basophils # 0.2 K/mm3 (0-0.2); Basophils % 1.8 % (0.1-2.0); Eosinophils # 0.2 K/mm3 (0.0-0.4); Eosinophils % 2.3 % (0.1-12.0); Hematocrit 44.2 % (42.0-52.0); Hemoglobin 15.2 g/dL (14.1-18.0); Lymphocytes # 2.5 K/mm3 (0.7-4.5); Mean Corpuscular HGB Conc 34.5 g/dL (31.8-35.4); Mean Corpuscular Hemoglobin 33.2 pg (27.0-31.2); Mean Corpuscular Volume 96.3 fl (80-94); Mean Platelet Volume 8.4 fl (7.4-10.4); Monocytes # 0.7 K/mm3 (0.1-1.0); Monocytes % 7.9 % (1.7-9.3); Neutrophils # 5.1 K/mm3 (1.8-7.8); Platelet Count 238 K/mm3 (142-424); Red Blood Count 4.59 M/mm3 (4.60-6.20); White Blood Count 8.7 K/mm3 (4.8-10.8)
[2022-05-16 22:30] LABS: Alanine Aminotransferase 31 U/L (12-78); Albumin Level 4.3 g/dl (3.5-5.0); Albumin/Globulin Ratio 1.3 (1.1-1.8); Alkaline Phosphatase 68 U/L (38-126); Amylase 68 U/L (30-110); Anion Gap 10.4 mEq/L (5-15); Aspartate Amino Transferase 36 U/L (17-59); Blood Urea Nitrogen 20 mg/dl (9-20); Calcium 9.2 mg/dl (8.4-10.2); Carbon Dioxide 30 mmol/L (22.0-30.0); Chloride 101 mmol/L (98-107); Creatinine Clearance Estimated 87 mL/min (50-200); Estimated Glomerular Filt Rate 73 ml/min (>60); GFR (African American) 89 ML/MIN (>60); Globulin 3.4 g/dL (1.3-3.2); Glucose 89 mg/dl (74-100); Lipase 52 U/L (23-300); Potassium 4.4 mmoL/L (3.5-5.1); Sodium 137 mmol/L (136-145); Total Protein,Serum 7.7 g/dl (6.3-8.2)
[2022-05-16 22:31] LABS: Bilirubin,Total < 0.1 mg/dl (0.2-1.3)
[2022-05-16 22:35] LABS: Bacteria,Urine Trace /lpf; C-Reactive Protein 3.3 mg/L (0-4); WBC,Urine Occasional #/hpf (0-3)
--- NOTE | 2022-05-16 22:38 | HMH.EDNVD ---
ED Disposition Clinical Impression: Acute flank pain, Lymphadenopathy Disposition: Home, Self-Care Condition on Discharge: Good Instructions: DI for Flank Pain Additional Instructions: use meds and see pcp for follow up Referrals: Nathen Taylor MD [Primary Care Provider] - - Critical Care Critical Care Time: No Attestation: On 05/16/22, the high probability of a clinically significant, sudden or life threatening deterioration of the following system(s) required my full and direct attention, intervention and personal management. The time I documented below is in addition to time spent performing reported procedures but includes the following listed in this critical care notation. Medical Decision Making - Medical Records Medical records reviewed: Yes: I reviewed the patient's medical records. - [place] Inquiry Pt receiving controlled substance: No Vital Signs: 05/16/22 20:52 05/16/22 21:06 05/16/22 23:31 Temperature 97.1 F L Temperature Source Oral Pulse Rate 66 65 Pulse Rate [Left] 64 Respiratory Rate 18 Blood Pressure 131/79 111/58 L Blood Pressure [Right Arm] 131/79 Blood Pressure Mean [Right Arm] 96 02 Sat by Pulse Oximetry 94 L 93 L 97 Oxygen Delivery Method Room Air Room Air Room Air - Lab Data Lab results reviewed: Yes: I reviewed the patient's lab results. Lab Results 05/16/22 21:23: Urine Color Yellow, Urine Appearance Clear, Urine pH 6.0, Ur Specific [place] 1.025, Urine Protein Negative, Urine Glucose (UA) Negative, Urine Ketones Negative, Urine Blood Negative, Urine Nitrate Negative, Urine Bilirubin Negative, Urine Urobilinogen 0.2, Ur Leukocyte Esterase Negative, Urine RBC None, Urine WBC Occasional, Ur Squamous Epith Cells 3-5, Urine Bacteria Trace 05/16/22 21:23: WBC 8.7, RBC 4.59 L, Hgb 15.2, Hct 44.2, MCV 96.3 H, MCH 33.2 H, MCHC 34.5, RDW 13.0, Plt Count 238, MPV 8.4, Neut % (Auto) 59.0, Lymph % (Auto) 29.0, [place] % (Auto) 7.9, Eos % (Auto) 2.3, Baso % (Auto) 1.8, Neut # (Auto) 5.1, Lymph # (Auto) 2.5, [place] # (Auto) 0.7, Eos # (Auto) 0.2, Baso # (Auto) 0.2, ESR 17 H 05/16/22 21:23: Sodium 137, Potassium 4.4, Chloride 101, Carbon Dioxide 30, Anion Gap 10.4, BUN 20, Creatinine 1.10, Estimated Creat Clear 87, Estimated GFR 73, Est GFR ( Amer) 89, Glucose 89, Calcium 9.2, Total Bilirubin < 0.1 L, AST 36, ALT 31, Alkaline Phosphatase 68, C-Reactive Protein 3.3, Total Protein 7.7, Albumin 4.3, Globulin 3.4 H, Albumin/Globulin Ratio 1.3, Amylase 68, Lipase 52, Procalcitonin 0.092 Result diagrams: 05/16/22 21:23 05/16/22 21:23 - Radiology Data #1 Image(s): Chest Image Reviewed: Yes I have reviewed radiologist's interpretation Preliminary Findings: Abnormal (possible nodule ) Medical Decision Narrative: nonspecific exam - possible back -spine as source but no lymph nodes in groin on exam and stable labs - will refer to pcp Nausea/Vomiting/Diarrhea HPI - General Chief complaint: Abdominal Pain Stated complaint: lower back right pain Time Seen by Provider: 05/16/22 22:39 Mode of Arrival: Ambulatory Source of Information: Patient, Medical Record Limitations: No Limitations Description of Symptoms (Recalled from ER Triage Doc. by RN): PT STATES THAT HE HAS HAD ACUTE SHARP SHOOTING PAIN IN THE RIGHT SIDE IT COMES AND GOES BUT WHEN IT COMES IT BUTS ME ON THE FLOOR PT STATES THE PAIN SEEMS TO BE RUNNING DOWNWARD IT COMES - History of Present Illness HPI Narrative: over the last couple of days sharp rt flank pain w/o fever /rash or trauma - no gu sx - MD complaint: other (flank pain) Onset (ago): day(s) Location of pain: flank Severity: moderate Quality: sharp Consistency: intermittent Associated symptoms: denies other symptoms - Related Data Previous Rx's Medication Instructions Recorded blood pressure monitor See Rx Instructions .ROUTE 11/24/21 .MEDSUPPLY #1 each carvedilol 25 mg tablet See Rx Instructions .ROUTE 05/10/22 .COMPLEX #60 ta
[2022-05-16 22:48] LABS: Erythrocyte Sedimentation Rate 17 mm/hr (0-15)
[2022-05-16 22:49] LABS: Procalcitonin 0.092 ng/mL (0.0-2.0)
--- NOTE | 2022-05-16 23:12 | PC.NURSE ---
Pt updated on POC. No new needs at this time.
[2022-05-16 23:31] VITALS: BP 111/58; PULSE 65; O2SAT 97
[2022-05-16 23:51] VITALS: BP 115/58; PULSE 80; RESP 20; TEMP 36.9; O2SAT 99
== END 2022-05-16 23:53 | disposition home or self-care (01) ==
PROVIDERS: Emergency Provider Emergency Medicine; PCP Internal Medicine Adolescent Medicine
DX: R10.9 Unspecified abdominal pain (principal); M54.50 Low back pain, unspecified; R59.1 Generalized enlarged lymph nodes; F17.210 Nicotine dependence, cigarettes, uncomplicated; I10 Essential (primary) hypertension
CPT/HCPCS: 71046; 74176; 80053; 81001; 82150; 83690; 84145; 85025; 85651; 86140; 96374; 99284

== ENCOUNTER → 2022-07-23 12:44 | Outpatient (CLI) | payer OTHER, SELFPAY ==
--- NOTE | 2022-07-23 13:09 | CT_ITS ---
FINAL REPORT TECHNIQUE: After the administration of intravenous contrast, axial images through the chest were performed by computed tomography.This study was performed with techniques to keep radiation doses as low as reasonably achievable, (ALARA). Individualized dose reduction techniques using automated exposure control or adjustment of mA and/or kV according to the patient''s size were employed. CLINICAL HISTORY: LUNG NODULE FINDINGS: There is abnormal attenuation in the anterior mediastinum, probably related to residual thymic tissue. Sub carinal lymph node measures 1.9 cm in greatest dimension. There are small right hilar nodes measure up to 1.4 cm in greatest dimension. The heart size is normal. There is no pericardial or pleural effusion. There is a noncalcified nodule in the right lower lobe measuring 1.2 cm in greatest dimension. Finding is best seen on image 39 of series 2. The liver parenchyma is homogeneous. The gallbladder is present. The spleen, pancreas and adrenals are unremarkable. IMPRESSION: 1.2 cm noncalcified nodule in the right upper lobe, malignancy is not excluded. Mild associated right hilar adenopathy could be related to regional metastatic adenopathy. Correlation with PET scan would be of value. Reviewed, Interpreted and Dictated by Daniel Chou MD Transcribed by Laure Álvarez Authenticated and [facility]
== END ==
PROVIDERS: PCP Internal Medicine Adolescent Medicine; Visit Provider Internal Medicine Adolescent Medicine
DX: R91.1 Solitary pulmonary nodule (principal)
CPT/HCPCS: 71260; Q9967

== ENCOUNTER 2022-09-20 09:59 | Day surgery (SDC) | payer OTHER, SELFPAY ==
[2022-09-16 14:22] VITALS: BMI 47.9
[2022-09-20] VITALS (9 sets, daily range): BP systolic 114–124; BP diastolic 55–78; PULSE 63–84; RESP 14–20; TEMP 36.1–36.3; O2SAT 92–97
--- NOTE | 2022-09-20 12:37 | P.PN_ITS ---
[facility] Medical History Daytime somnolence Hilar lymphadenopathy Lung nodule seen on imaging study Malignant hypertension Mediastinal lymphadenopathy KIEL (obstructive sleep apnea) Sinus tachycardia Snoring Surgical History History of ankle surgery History of elbow surgery History of foot surgery Family History Other Heart attack Hypertension Social History Smoking Status: Current every day smoker tobacco type: cigarettes packs per day: 1 second hand exposure: Yes alcohol intake: never substance use type: denies use current occupational status: employed Travel in the last 8 weeks: None housing: house caffeine: Yes [facility] Anesthesia Checklist Patient Identification Patient Identification: Arm Band Structural Data Admitted From: Home Planned Operative Procedure/s: EBUS Consent for Planned Operative Procedure(s) Verified: Yes Verified Documents: Surgical Consent NPO Status Verified Time NPO: 00:00 Additional verifications Anesthesia Reactions: No Hx Blood Transfusions: No Blood Transfusion Reaction: No Airway Assessment C-Spine Mobility Assessed: Yes TMJ Mobility Assessed: Yes Dentition: Good Dentition Neurological Assessment Level of Consciousness: Awake, Alert and Appropriate Anesthesia Plan Anesthesia Risk discussed: Yes ASA Class: III Anesthesia Type: General
--- NOTE | 2022-09-20 13:28 | EXP.BRONCH.N ---
Procedure: Date: 09/20/22 Patient Date of :: 1980 Procedure Performed:: Endoscopic ultrasound-guided Fine needle aspiration Indications:: Lung nodule and lymphadenopathy Performing Provider:: Cami Hassan MD Referring Provider:: Dr. Avila Sedation:: General anesthesia Procedure:: Endoscopic ultrasound-guided fine-needle aspiration: Clean EBUS bronchoscopy was advanced through the endotracheal tube and lymph nodes surveillance was performed. Patient noted to have lymphadenopathy at station 10 R and anterior station 7. Total of 8 passes were performed at each station, pathology at bedside noted to have scant lymphoid tissue admixed with blood. FNA samples were also sent for bacterial fungal AFB stain cultures. FNA samples were also sent in RPMI for flow cytometry evaluation. Patient tolerated the procedure well. No acute immediate complications noted. Findings:: Please see the procedure note Recommendations:: Please see the procedure note.-Follow in pulmonary clinic in 5 to 7 days. Complications:: No acute immediate complications. Estimated blood obtained (mL): 10
--- NOTE | 2022-09-20 13:34 | ECG_ITS ---
APPROVED REPORT Exam: Resting ECG HR:69 bpm ECG Measurements Heart Rate 69 AXES AR 185 P 70 QRSd 103 QRS 56 QT 392 T 65 QTc 411 Conclusion SINUS RHYTHM NORMAL ECG UNCONFIRMED REPORT Electronically signed by : Nathen Taylor MD 09/20/2022 16:36:02
--- NOTE | 2022-09-20 13:39 | XR_ITS ---
FINAL REPORT CLINICAL HISTORY: post op bronchoscopy COMPARISON: 11/18/2021 FINDINGS: A single view of the chest was obtained. The heart is enlarged. There is mild pulmonary vascular congestion. There is no pleural effusion. There is no pneumothorax. IMPRESSION: No pneumothorax post bronchoscopy. Reviewed, Interpreted and Dictated by Poncho Steen III, MD Transcribed by Norma Angela Authenticated and [facility]
--- NOTE | 2022-09-20 14:13 | SUR.PHASEI ---
1403 called and gave detailed report to Cesar Hurt RN 1405 transported via stretcher to post op. vital signs stable. denies pain. no coughing noted at this time. left in stable condition with Cesar Hurt RN at bedside.
--- NOTE | 2022-09-20 14:15 | SUR.PHASEI ---
LATE ENTRY 5540 Respiratory at bedside for EKG and duoneb treatment. Radiology at bedside for chest x-ray.
--- NOTE | 2022-09-21 07:45 | EXP.ANES.II ---
[facility] Anesthesia Record Part II Anesthesia Record Part II Discharge Time: 14:05 Destination: Surgical Day Care (OP Surgery) PACU nurse assessment reviewed?: Yes Patient Condition:: Good Anesthesia Complications:: None Swallowing reflex intact?: Yes Cyanosis?: No Blood Pressure: 124/59 Pulse Rate: 69 Temperature: 97 F Mental Status: Alert & Oriented Pain level:: 0 Nausea and/or vomitting:: None Intake, IV Amount: 0
[2022-09-21 07:47] VITALS: BP 124/59; PULSE 69; TEMP 36.1
== END 2022-09-20 14:47 | disposition home or self-care (01) ==
PROVIDERS: PCP Internal Medicine Adolescent Medicine; Visit Provider Internal Medicine Pulmonary Disease
PROC: (CPT 31652; principal; 2022-09-20 11:30)
DX: R91.1 Solitary pulmonary nodule (principal); R59.0 Localized enlarged lymph nodes; I10 Essential (primary) hypertension; I42.9 Cardiomyopathy, unspecified; F17.210 Nicotine dependence, cigarettes, uncomplicated
CPT/HCPCS: 31652; 71045; 87070; 87077; 87102; 87116; 87186; 87205; 87206; 93005; 94640; J2405

== ENCOUNTER 2022-09-22 14:39 | Emergency (ER) | payer OTHER, SELFPAY ==
--- NOTE | 2022-09-22 15:27 | EXP.UTC ---
Discharge Plan Disposition Patient Disposition: Home, Self-Care Condition: Good Prescriptions Prescriptions: New furosemide [Lasix] 20 mg tablet 20 mg PO DAILY Qty: 3 0RF No Action furosemide 40 mg tablet See Rx Instructions .ROUTE .COMPLEX Rx Instructions: Take 1 tablet by mouth once daily carvedilol 25 mg tablet See Rx Instructions .ROUTE .COMPLEX Rx Instructions: Take 1 tablet by mouth twice daily with food (DME) blood pressure monitor Kit See Rx Instructions MISCELLANEOUS Rx Instructions: As directed irbesartan 150 mg tablet 150 mg PO DAILY spironolactone 50 mg tablet See Rx Instructions .ROUTE .COMPLEX Rx Instructions: Take 1 tablet by mouth once daily Referrals Follow up/Referrals: Nathen Taylor MD [Primary Care Provider] - See instructions Activity Restrictions/Add. Instructions Additional Instructions/Restrictions: Take the medications as directed. Take lasix 20 mg daily (in addition to your normal lasix 40 mg) for the next 3 days. Follow up with your regular doctor. GO TO THE ER FOR ANY WORSENING SYMPTOMS Clinical Impressions Clinical Impression: Congestive heart failure Instructions Patient Instructions: Heart Failure Discharge ED Provider: Yobani Aj [facility] General Stated complaint: SOA, RT side back pain radiating Time Seen by Provider: 09/22/22 15:27 History of Present Illness Provider Complaint: He states that for the past 1 day he has had some shortness of breath. He has a history of chf and he states that he feels like he has some fluid in his chest. He did have a bronchoscopy done 2 days ago. He denies any chest pain. He has had some pedal edema for the past 2 days also. Related Data Home Medications Medication Instructions Recorded Confirmed blood pressure monitor 09/16/22 09/16/22 carvedilol 25 mg tablet See Rx Instructions .Route 09/16/22 09/16/22 .COMPLEX bp furosemide 40 mg tablet See Rx Instructions .Route 09/16/22 09/16/22 .COMPLEX Fluid irbesartan 150 mg tablet 150 mg PO DAILY bp 09/16/22 09/16/22 spironolactone 50 mg tablet See Rx Instructions .Route 09/16/22 09/16/22 .COMPLEX Fluid Previous Rx's Medication Instructions Recorded furosemide 20 mg tablet (Lasix) 20 mg PO DAILY #3 tabs 09/22/22 Allergies Allergy/AdvReac Type Severity Reaction Status Date / Time No Known Allergies Allergy Verified 09/16/22 14:20 PFSH PFS Medical History Daytime somnolence Hilar lymphadenopathy Lung nodule seen on imaging study Malignant hypertension Mediastinal lymphadenopathy KIEL (obstructive sleep apnea) Sinus tachycardia Snoring Surgical History History of ankle surgery History of elbow surgery History of foot surgery Family History Other Heart attack Hypertension Social History Smoking Status: Current every day smoker tobacco type: cigarettes packs per day: 1 second hand exposure: Yes alcohol intake: never substance use type: denies use current occupational status: employed Travel in the last 8 weeks: None housing: house caffeine: Yes ROS Obtained: Yes All systems reviewed & no additional complaints except as documented Constitutional Constitutional: Denies chills and Denies fever(s) Eyes Eyes: Denies eye discharge ENT Ears, Nose, Mouth, and Throat: Denies dizziness, Denies otalgia and Denies sore throat Cardiovascular Cardiovascular: Denies chest pain Respiratory Respiratory: Denies shortness of breath, Denies chest congestion, Denies cough, Denies stridor and Denies wheezing Gastrointestinal Gastrointestingal: Denies nausea or vomiting Musculoskeletal Musculoskeletal: Reports system reviewed and no additional complaints, e
[2022-09-22 15:37] VITALS: BP 121/78; PULSE 61; RESP 18; TEMP 36.8; O2SAT 97; BMI 48.7
--- NOTE | 2022-09-22 15:49 | XR_ITS ---
FINAL REPORT CLINICAL HISTORY: CHF/SOA COMPARISON: 09/20/2022 FINDINGS: TWO-VIEW CHEST There is cardiomegaly with mild pulmonary vascular congestion. Findings are similar to previous. The mediastinum is normal. The lungs are clear. There is no pneumothorax. IMPRESSION: No significant change since previous. Reviewed, Interpreted and Dictated by Poncho Steen III, MD Transcribed by Laure Álvarez Authenticated and [facility]
[2022-09-22 16:27] VITALS: BP 120/70; PULSE 68; RESP 18; TEMP 36.8; O2SAT 96
== END 2022-09-22 16:28 | disposition home or self-care (01) ==
PROVIDERS: Emergency Provider Nurse Practitioner Family; PCP Internal Medicine Adolescent Medicine
DX: I50.9 Heart failure, unspecified (principal)
CPT/HCPCS: 71046; 94640; 99213; G0463

== ENCOUNTER 2024-09-05 15:02 | Emergency (ER) | payer SELFPAY ==
--- NOTE | 2024-09-05 15:11 | ED_ITS ---
Discharge Plan Disposition Patient Disposition: Home, Self-Care Condition: Good Prescriptions Prescriptions: New irbesartan 150 mg tablet 150 mg PO DAILY 30 Days Qty: 30 0RF furosemide 40 mg tablet 40 mg PO DAILY 30 Days Qty: 30 0RF carvedilol 25 mg tablet 25 mg PO BID Qty: 30 0RF Rx Instructions: must administer with a meal/food spironolactone 50 mg tablet 50 mg PO DAILY Qty: 30 0RF Discontinued carvedilol 25 mg tablet 25 mg PO BID Qty: 60 0RF furosemide 40 mg tablet 40 mg PO DAILY Qty: 30 0RF irbesartan 150 mg tablet 150 mg PO DAILY Qty: 30 0RF spironolactone 50 mg tablet 50 mg PO DAILY Qty: 30 0RF furosemide 40 mg tablet See Rx Instructions .ROUTE .COMPLEX Rx Instructions: Take 1 tablet by mouth once daily No Action (DME) blood pressure monitor Kit See Rx Instructions MISCELLANEOUS Rx Instructions: As directed Referrals Follow up/Referrals: Nathen Taylor MD [Primary Care Provider] - See instructions Activity Restrictions/Add. Instructions Additional Instructions/Restrictions: Please follow up with your PCP and your cotton agent. Please return with any new or worsening symptoms Clinical Impressions Clinical Impression: Encounter for medication refill Print Language Print Language: Pashto Discharge ED Provider: Skyler De Leon Adult HPI General Stated complaint: SOA Time Seen by Provider: 09/05/24 15:10 History of Present Illness HPI narrative: Patient presents requesting medication refill. He has been out of his home medications for approximately 2 weeks. He has been taking neighbors medications of which include diuretic and antihypertensive. He denies any symptoms at this time. He reports insurance issues which have prohibited cotton agent visit. Denies any acute symptoms such as chest pain, shortness of breath, nausea, vomiting, fever, chills, chest pain. Please note that above description of symptoms, in this electronic medical record under categorization of recalled from ER triage doctor by RN are reflective of an initial nursing assessment, however, is not reflective of my full history and physical exam that was personally taken and clarified. Consequentially, this preceding description of symptoms, which may include the patient's categorized chief complaint in the EMR, do not reflect my personal clinical impression, and the ultimate description of history of present illness and patient stated complaints should be deferred to this section of the note. Unless stated otherwise or congruent with this section of the note, additional signs, symptoms, or incongruence should be interpreted as inaccurate with my clinical impression. Related Data Home Medications ?Medication ?Instructions ?Recorded ?Confirmed blood pressure monitor 09/16/22 09/29/22 Previous Rx's ?Medication ?Instructions ?Recorded carvedilol 25 mg tablet 25 mg PO BID #30 tabs 09/05/24 furosemide 40 mg tablet 40 mg PO DAILY 30 days #30 tabs 09/05/24 irbesartan 150 mg tablet 150 mg PO DAILY 30 days #30 tabs 09/05/24 spironolactone 50 mg tablet 50 mg PO DAILY #30 tabs 09/05/24 Allergies Allergy/AdvReac Type Severity Reaction Status Date / Time No Known Allergies Allergy Verified 09/29/22 13:10 [facility] Disclaimer: The information contained in this section may have been updated after the patient was seen, as this information can be updated by other users. Medical History (Updated 09/05/24 @ 15:31 by Skyler De Leon MD) Tobacco abuse counseling Tobacco abuse Mediastinal lymphadenopathy Hilar lymphadenopathy Lung nodule seen on imaging study KIEL (obstructive sleep apnea) Daytime somnolence Snoring Malignant hypertension Sinus tachycardia Surgical History (Updated 09/29/22 @ 13:05 by Mayela Almanza) History of bronchoscopy History of elbow surgery History of ankle surgery History of foot surgery Family History Other Heart attack Hypertension Social History Smoking Status: Current every day smoker tobacco type: cigarettes packs per day: 1 second hand exposure: Yes alcohol intake: never substance use type: denies use current occupational status: employed Travel in the last 8 weeks: None housing: house caffeine: Yes Other Medical History Have you received the Flu Vaccine for this season: Yes Have you received the Pneumonia Vaccine: Yes ROS Obtained: Yes other As per HPI Physical Exam General General appearance: alert and in no apparent distress Head Head exam: atraumatic and normocephalic Eye Eye exam: Present normal appearance Neck Neck exam: Present normal inspection Chest Chest inspection: Present normal inspection and symmetric chest wall rise Respiratory Respiratory exam: Present normal lung sounds bilaterally; Absent respiratory distress Cardiovascular Cardiovascular exam: Present regular rate and normal rhythm Abdominal Exam Abdominal exam: Present soft Neurological Exam Neurological exam: Present alert and oriented X3 Psychiatric Psychiatric exam: Present normal affect and normal mood Skin Skin exam: Present warm and dry Medical Decision Making Medical Records Medical records reviewed: Yes I reviewed the patient's medical records. Screening: Per USPSTF and CDC recommendations, given the prevalence of disease in our region, it is our hospital?s policy to screen for HIV and viral Hepatitis for all patients aged 18 and over and those with ongoing risk factors. [place] Inquiry Pt receiving controlled substance: No Vital Signs: 09/05/24 15:38 Temperature 98.0 F Temperature Source Oral Pulse Rate 74 Respiratory Rate 18 Blood Pressure 138/91 H Blood Pressure Source Automatic Cuff Blood Pressure Position Sitting Oxygen Delivery Method Room Air Medical Decision Narrative: Patient with history and exam per above presenting for evaluation of medication refill Diagnoses considered include hypertension, volume overload, patient denies any other acute symptoms at this time and declines any further workup. His medications will be refilled. Return precautions given. He was instructed to follow-up as soon as possible with primary care provider. Critical Care Critical Care Time Critical Care Time: No
[2024-09-05 15:38] VITALS: BP 138/91; PULSE 74; RESP 18; TEMP 36.7; O2SAT 95
== END 2024-09-05 15:39 | disposition home or self-care (01) ==
PROVIDERS: Emergency Provider Emergency Medicine; PCP Internal Medicine Adolescent Medicine
DX: Z76.0 Encounter for issue of repeat prescription (principal)
CPT/HCPCS: 99283

== ENCOUNTER 2024-11-11 19:12 | Inpatient (IN) | payer SELFPAY ==
--- NOTE | 2024-11-11 19:19 | ED_ITS ---
<Statement entered by Kemi Cortez DO - 11/11/24 23:35> I was consulted by the PAWEL, and we discussed the complexity of the problems being addressed. I approved the treatment and management plan for this patient's care in the emergency department, thus performing a substantive portion of the medical decision making. Kemi Cortez DO Discharge Plan Disposition Patient Disposition: Admitted Condition: Fair Prescriptions Prescriptions: No Action carvedilol 25 mg tablet 25 mg PO BID Qty: 30 0RF Rx Instructions: must administer with a meal/food furosemide 40 mg tablet 40 mg PO DAILY 30 Days Qty: 30 0RF irbesartan 150 mg tablet 150 mg PO DAILY 30 Days Qty: 30 0RF spironolactone 50 mg tablet 50 mg PO DAILY Qty: 30 0RF (DME) blood pressure monitor Kit See Rx Instructions MISCELLANEOUS Rx Instructions: As directed Referrals Follow up/Referrals: aNthen Taylor MD [Primary Care Provider] - See instructions Clinical Impressions Clinical Impression: Acute exacerbation of chronic obstructive pulmonary disease, Acute hypoxemic respiratory failure Print Language Print Language: Tamazight Discharge ED Provider: Kemi Cortez HPI General Chief Complaint: Upper Respiratory Infection Stated Complaint: SOA, diarrhea, sudheer Time Seen by Provider: 11/11/24 19:18 History of Present Illness HPI narrative: Patient presents for a week of cough congestion and shortness of breath. Patient at baseline is a smoker has known hypertensive cardiomyopathy reportedly on carvedilol Lasix irbesartan and spironolactone, also has COPD that is not on home O2 or any type of disease modifying medication and still has ongoing smoking. He denies any chest pain fever chills hemoptysis hematochezia melena nausea vomiting diarrhea but reports increasing shortness of breath even at rest. Related Data Home Medications ?Medication ?Instructions ?Recorded ?Confirmed blood pressure monitor 09/16/22 09/29/22 Previous Rx's ?Medication ?Instructions ?Recorded carvedilol 25 mg tablet 25 mg PO BID #30 tabs 10/18/24 furosemide 40 mg tablet 40 mg PO DAILY 30 days #30 tabs 10/18/24 irbesartan 150 mg tablet 150 mg PO DAILY 30 days #30 tabs 10/18/24 spironolactone 50 mg tablet 50 mg PO DAILY #30 tabs 10/18/24 Allergies Allergy/AdvReac Type Severity Reaction Status Date / Time No Known Allergies Allergy Verified 09/29/22 13:10 [facility] Disclaimer: The information contained in this section may have been updated after the patient was seen, as this information can be updated by other users. Medical History (Updated 11/11/24 @ 20:43 by MIKE Rice) Tobacco abuse counseling Tobacco abuse Mediastinal lymphadenopathy Hilar lymphadenopathy Lung nodule seen on imaging study KIEL (obstructive sleep apnea) Daytime somnolence Snoring Malignant hypertension Sinus tachycardia Surgical History (Updated 09/29/22 @ 13:05 by Mayela Almanza) History of bronchoscopy History of elbow surgery History of ankle surgery History of foot surgery Family History Other Heart attack Hypertension Social History Smoking Status: Current every day smoker tobacco type: cigarettes packs per day: 1 second hand exposure: Yes alcohol intake: never substance use type: denies use current occupational status: employed Travel in the last 8 weeks: None housing: house caffeine: Yes Have you lived/traveled outside US in past 30 days?: No Contact w/someone who lives/traveled outside US past 30 days?: No Exposure to someone with infectious disease in past 14 days?: No Do you have a fever (greater than 100.4 F or 38 C)?: No Have you tested positive for COVID-19: No Exposed to someone with COVID-19 in past 14 days?: No Do you have a sore throat?: Yes Do you have a cough?: Yes Do you have any weakness?: Yes Do you have any diarrhea?: No Are you experiencing any unusual bleeding?: No Do you have any muscle aches/pain?: No Do you have any abdominal pain?: No Are you experiencing loss of taste or smell?: No Other Medical History Have you received the Flu Vaccine for this season: Yes Have you received the Pneumonia Vaccine: Yes ROS Obtained: Yes Systems reviewed as appropriate & no additional complaints except as documented Physical Exam General General appearance: alert and in no apparent distress Respiratory Respiratory exam: Present prolonged expiratory phase; Absent respiratory distress, wheezes or accessory muscle use Cardiovascular Cardiovascular exam: Present regular rate Neurological Exam Neurological exam: Present alert and oriented X3 HEART Score HEART Score HEART Score assessment performed?: No Critical Care Critical Care Time Critical Care Time: No Medical Decision Making Medical Records Medical records reviewed: Yes I reviewed the patient's medical records. [place] Inquiry Pt receiving controlled substance: No Vital Signs Vital Signs: 11/11/24 19:24 Temperature 97.8 F Temperature Source Oral Pulse Rate [Right Brachial] 79 Respiratory Rate 20 Blood Pressure [Right Arm] 154/75 H Blood Pressure Mean [Right Arm] 101 Blood Pressure Source [Right Arm] Automatic Cuff Blood Pressure Position [Right Arm] Sitting 02 Sat by Pulse Oximetry 87 L Oxygen Delivery Method Room Air Lab Data Lab results reviewed: Yes I reviewed the patient's lab results. Labs: Lab Results 11/11/24 19:25: VBG pH 7.36, VBG pCO2 45.3, VBG pO2 86.1 H, VBG HCO3 25.2, VBG Total CO2 26.6, VBG O2 Saturation 96.3 H, VBG Base Excess -0.2, VBG Lactic Acid 1.5 11/11/24 19:35: WBC 7.1, RBC 5.40, Hgb 16.9, Hct 48.1, MCV 89.1, MCH 31.2, MCHC 35.0, RDW 13.4, Plt Count 179, MPV 7.8, Neut % (Auto) 66.9, Lymph % (Auto) 18.5, [place] % (Auto) 10.6 H, Eos % (Auto) 1.2, Baso % (Auto) 2.7 H, Neut # (Auto) 4.7, Lymph # (Auto) 1.3, [place] # (Auto) 0.8, Eos # (Auto) 0.1, Baso # (Auto) 0.2, PT 10.9, INR 0.97, Sodium 138, Potassium 4.1, Chloride 105, Carbon Dioxide 28, Anion Gap 9.1, BUN 14, Creatinine 0.90, Estimated Creat Clear 104, Estimated GFR 91, Est GFR ( Amer) 110, Glucose 96, Calcium 8.8, Magnesium 1.7, Total Bilirubin 0.6, AST 46, ALT 32, Alkaline Phosphatase 66, Troponin I < 0.01, NT-Pro-B Natriuret Pep < 20.0, Total Protein 7.6, Albumin 4.3, Globulin 3.3 H, Albumin/Globulin Ratio 1.3, Procalcitonin 0.138 11/11/24 19:35 11/11/24 19:35 Response Orders (Tests/Meds): ED MEDICATIONS Generic Name Dose Route Start Last Admin Trade Name Freq PRN Reason Stop Dose Admin Sodium Chloride 10 ml 11/11/24 20:29 11/11/24 20:30 Sodium Chloride 0.9% 10ml Syr (Rad Only) IV 12/11/24 20:28 10 ml NEEDED PRN Administration Maintain IV Site Discontinued Medications Generic Name Dose Route Start Last Admin Trade Name Freq PRN Reason Stop Dose Admin Albuterol/Ipratropium 9 ml 11/11/24 19:24 11/11/24 19:40 Ipratropium/Albuterol 3 Ml Neb IH 11/11/24 19:25 9 ml ONCE ONE Administration Dexamethasone Sodium Phosphate 10 mg 11/11/24 19:24 11/11/24 19:44 Dexamethasone 4mg/Ml 5ml Mdv IV 11/11/24 19:25 10 mg ONCE ONE Administration Iopamidol 70 ml 11/11/24 20:29 11/11/24 20:30 Iopamidol-370 (76%);100ml Bottle IV 11/11/24 20:30 70 ml ONCE ONE Administration Sodium Chloride 50 ml 11/11/24 20:29 11/11/24 20:30 0.9 % Sodium Chloride 50 Ml Vial IV 11/11/24 20:30 50 ml ONCE ONE Administration ORDERS Category Date Time Status CT angio chest PE protocol Stat Cat Scan 11/11/24 19:24 Taken BNP [NT Pro Brain Natriuretic Pep.] Stat Lab 11/11/24 19:35 Completed CBC w/Auto Diff [Complete Blood Count Auto Diff] Stat Lab 11/11/24 19:35 Completed CMP [Comprehensive Metabolic Panel] Stat Lab 11/11/24 19:35 Completed Full Resp Panel w/COVID ([facility]) Routine Lab 11/11/24 19:35 Received HIV (1&2) Antibody Rapid Stat Lab 11/11/24 19:35 Received Hep C Ab with Reflex to RNA Stat Lab 11/11/24 19:35 Received INR [Prothrombin Time INR] Stat Lab 11/11/24 19:35 Completed Magnesium Stat Lab 11/11/24 19:35 Completed Procalcitonin Stat Lab 11/11/24 19:35 Completed Trop I [Troponin I] Stat Lab 11/11/24 19:35 Completed Troponin I Q3H Lab 11/11/24 22:30 Ordered Troponin I Q3H Lab 11/12/24 01:30 Ordered VBG [Venous Blood Gas] Stat RT 11/11/24 19:25 Completed MDM Narrative Medical Decision Narrative: In summary patient is a 44-year-old male who presents to the emergency department for evaluation of cough congestion shortness of breath. Patient is initially normotensive 154/75 pulse 79 respiratory rate 20 but satting at 87% on room air at the time of my exam , afebrile. Physical exam is remarkable for diffuse expiratory wheezing in all 4 lung carpenter but breath sounds are heard to bases.. Differential diagnosis includes COPD exacerbation versus viral infection versus bacterial infection versus PE etc. Initial workup will be conducted with hematologic labs CT PE protocol VBG. Initial interventions include DuoNeb Decadron. Initial workup reviewed by me shows that his hematologic labs are nonactionable and my informal interpretation of his CT scan PE protocol does not show any evidence of thrombus or infiltrate. Upon repeat evaluation patient still has end-expiratory wheezes in all 4 carpenter and is now requiring 3 L by nasal cannula to maintain to sat above 90%. Given this I had interactive discussion with hospital medicine regarding patient management and he will be admitted for further evaluation and care
[2024-11-11 19:24] VITALS: BP 154/75; PULSE 79; RESP 20; TEMP 36.6; O2SAT 87; BMI 44.3
--- NOTE | 2024-11-11 19:24 | CT_ITS ---
PROCEDURE INFORMATION: Exam: CTA Chest With Contrast Exam date and time: 11/11/2024 8:25 PM Age: 44 years old Clinical indication: Dyspnea and shortness of breath TECHNIQUE: Imaging protocol: Computed tomographic angiography of the chest with contrast. Exam focused on the arteries. 3D rendering (Not supervised by radiologist): MIP and/or 3D reconstructed images were created by the technologist. Radiation optimization: All CT scans at this facility use at least one of these dose optimization techniques: automated exposure control; mA and/or kV adjustment per patient size (includes targeted exams where dose is matched to clinical indication); or iterative reconstruction. Contrast material: ISOUVE 370; Contrast volume: 70 ml; Contrast route: INTRAVENOUS (IV); COMPARISON: 1. CT CHEST W CON 07/23/2022 1:23 PM 2. CR XR CHEST 2V 09/22/2022 3:52 PM 3. CR XR CHEST PORTABLE 09/20/2022 1:41 PM FINDINGS: Pulmonary arteries: There is fair opacification of the pulmonary arterial tree. No central pulmonary arterial filling defect is seen. Aorta: There is atherosclerotic disease of the visualized aorta and its major branch vessels. Other arteries: Subsegmental vessels are not well evaluated due to motion and technical factors. Lungs: Scattered areas of bronchial wall thickening which are likely chronic inflammatory. A few areas of subpleural reticulation are noted, nonspecific. There is a 1 cm nodule in the right lower lobe that is unchanged since at least July 23, 2022. Pleural spaces: Unremarkable. No pneumothorax. No pleural effusion. Heart: Unremarkable. No cardiomegaly. No pericardial effusion. Lymph nodes: There are prominent mediastinal and hilar lymph nodes which appear similar to comparison. Bones/joints: There is diffuse degenerative disease of the visualized osseous structures. Soft tissues: There is bilateral gynecomastia. Other findings: There are some scattered areas of consolidative change which are nonspecific but could reflect early or resolving infection. Motion artifact mildly limits evaluation. IMPRESSION: 1. No central pulmonary arterial filling defect is seen. Subsegmental vessels are not well evaluated due to motion and technical factors. 2. There are some scattered areas of consolidative change which are nonspecific but could reflect early or resolving infection.
[2024-11-11] MEDS: IPRATROPIUM/ALBUTEROL 3 ML NEB 9 ML IH (19:40)
--- NOTE | 2024-11-11 19:40 | PC.NURSE ---
Established an 18ga IV in pts R AC labs sent and COVID/Flu swab collected and sent to lab.
[2024-11-11] MEDS: DEXAMETHASONE 4MG/ML 5ML MDV 10 MG IV (19:44)
[2024-11-11 19:45] LABS: Adenovirus,PCR Not Detected (NotDetected); Bordetella Pertussis Not Detected (NotDetected); Chlamydophila Pneumoniae, PCR Not Detected (NotDetected); Coronavirus 19, PCR Not Detected (NotDetected); Coronavirus 229E Not Detected (NotDetected); Coronavirus NL63 Not Detected (NotDetected); Coronavirus OC43 Not Detected (NotDetected); Coronovirus HKU1,PCR Not Detected (NotDetected); Human Metapneumovirus Not Detected (NotDetected); Influenza A, PCR Not Detected (NotDetected); Influenza AH1, 2009 Not Detected (NotDetected); Influenza AH1, PCR Not Detected (NotDetected); Influenza AH3,PCR Not Detected (NotDetected); Influenza B, PCR Not Detected (NotDetected); Mycoplasma Pneumoniae, PCR Not Detected (NotDetected); Parainfluenza 1, PCR Not Detected (NotDetected); Parainfluenza 2, PCR Not Detected (NotDetected); Parainfluenza 3, PCR Not Detected (NotDetected); Parainfluenza 4, PCR Not Detected (NotDetected); Rhinovirus/Enterovirus Not Detected (NotDetected)
[2024-11-11 19:46] LABS: Basophils # 0.2 K/mm3 (0-0.2); Basophils % 2.7 % (0.1-2.0); Eosinophils # 0.1 K/mm3 (0.0-0.4); Eosinophils % 1.2 % (0.1-12.0); Hematocrit 48.1 % (42.0-52.0); Hemoglobin 16.9 g/dL (14.1-18.0); Lymphocytes # 1.3 K/mm3 (0.7-4.5); Lymphocytes % 18.5 % (10-50); Mean Corpuscular Hemoglobin 31.2 pg (27.0-31.2); Mean Corpuscular Volume 89.1 fl (80-94); Mean Platelet Volume 7.8 fl (7.4-10.4); Monocytes # 0.8 K/mm3 (0.1-1.0); Monocytes % 10.6 % (1.7-9.3); Neutrophils # 4.7 K/mm3 (1.8-7.8); Neutrophils % 66.9 % (37.0-80.0); Platelet Count 179 K/mm3 (142-424); Red Cell Distribution Width 13.4 % (11.5-17.5); White Blood Count 7.1 K/mm3 (4.8-10.8)
[2024-11-11 19:50] LABS: Lactate Venous 1.5 mmol/L (0.4-2.0); VBG Base Excess -0.2 mmol/L (-2.4-2.3); VBG HCO3 25.2 mmol/L (23-30); VBG Oxygen Saturation 96.3 % (50-70); VBG PCO2 45.3 mmol/L (35-51); VBG PH 7.36 mmol/L (7.31-7.41); VBG PO2 86.1 mmol/L (28-40); VBG Total CO2 26.6 mmol/L (23-27)
[2024-11-11 19:51] LABS: Albumin Level 4.3 g/dl (3.5-5.0); Chloride 105 mmol/L (98-107); Potassium 4.1 mmoL/L (3.5-5.1); Sodium 138 mmol/L (136-145)
[2024-11-11 19:54] LABS: Alanine Aminotransferase 32 U/L (12-78); Albumin/Globulin Ratio 1.3 (1.1-1.8); Alkaline Phosphatase 66 U/L (38-126); Anion Gap 9.1 mEq/L (5-15); Aspartate Amino Transferase 46 U/L (17-59); Bilirubin,Total 0.6 mg/dl (0.2-1.3); Blood Urea Nitrogen 14 mg/dl (9-20); Calcium 8.8 mg/dl (8.4-10.2); Carbon Dioxide 28 mmol/L (22.0-30.0); Creatinine Clearance Estimated 104 mL/min (50-200); Estimated Glomerular Filt Rate 91 ml/min (>60); GFR (African American) 110 ML/MIN (>60); Globulin 3.3 g/dL (1.3-3.2); Glucose 96 mg/dl (74-100); Total Protein,Serum 7.6 g/dl (6.3-8.2)
[2024-11-11 19:55] LABS: Magnesium 1.7 mg/dl (1.6-2.3)
[2024-11-11 20:24] LABS: NT Pro Brain Natriuretic Pep. < 20.0 pg/mL (0-125); Troponin I < 0.01 ng/ml (0.00-0.034)
[2024-11-11 20:25] LABS: INR 0.97 (0.9-1.1); Prothrombin Time 10.9 seconds (10.1-12.5)
[2024-11-11 20:28] LABS: Procalcitonin 0.138 ng/mL (0.0-2.0)
--- NOTE | 2024-11-11 20:29 | PC.NURSE ---
Pt back from CT scan
[2024-11-11] MEDS: 0.9 % SODIUM CHLORIDE 50 ML VIAL IV (20:30)
[2024-11-11] MEDS: SODIUM CHLORIDE 0.9% 10ML SYR (RAD ONLY) 10 ML IV (20:30)
[2024-11-11] MEDS: IOPAMIDOL-370 (76%);100ML BOTTLE 70 ML IV (20:30)
[2024-11-11 21:25] VITALS: BP 128/79; PULSE 79; RESP 26; TEMP 37.1; O2SAT 94
[2024-11-11 21:36] VITALS: BP 128/79; PULSE 66; RESP 20; TEMP 37.2; O2SAT 91; BMI 47.4
[2024-11-11 21:37] VITALS: O2SAT 92
--- NOTE | 2024-11-11 21:40 | EXP.HP ---
History of Present Illness *Admission Date: 11/11/24 *Reason for visit:: SOB, productive cough, fevers, chills *History of present illness: 44-year-old with past medical history of daily smoker, KIEL, hypertension, CHF. Patient presents with SOB, GAYTAN, fevers, chills, dry cough times several days. Patient's O2 saturation 80% in emergency room. Admits to productive whitish clearish cough for several days in conjunction with diarrhea and generalized soreness. Denies chest pain, abdominal pain, ataxia, blurry vision. Girlfriend present with patient emergency room and states she suffered from similar symptoms. Girlfriend diagnosed with head cold and ear infection. And currently on Augmentin therapy. Patient requiring 3 L nasal cannula in emergency room for adequate oxygenation. States his manager investment banking is Dr. Arteaga. Denies lower extremity swelling, PND or orthopnea. Patient's procalcitonin 0.138, CTA chest without PE but possible infectious changes, WBC 7.1. [facility] Disclaimer: The information contained in this section may have been updated after the patient was seen, as this information can be updated by other users. Medical History (Updated 11/11/24 @ 20:43 by MIKE Rice) Tobacco abuse counseling Tobacco abuse Mediastinal lymphadenopathy Hilar lymphadenopathy Lung nodule seen on imaging study KIEL (obstructive sleep apnea) Daytime somnolence Snoring Malignant hypertension Sinus tachycardia Surgical History (Updated 09/29/22 @ 13:05 by Mayela Almanza) History of bronchoscopy History of elbow surgery History of ankle surgery History of foot surgery Family History Other Heart attack Hypertension Social History Smoking Status: Current every day smoker tobacco type: cigarettes packs per day: 1 second hand exposure: Yes alcohol intake: never substance use type: denies use current occupational status: employed Travel in the last 8 weeks: None housing: house caffeine: Yes Have you lived/traveled outside US in past 30 days?: No Contact w/someone who lives/traveled outside US past 30 days?: No Exposure to someone with infectious disease in past 14 days?: No Do you have a fever (greater than 100.4 F or 38 C)?: No Have you tested positive for COVID-19: No Exposed to someone with COVID-19 in past 14 days?: No Do you have a sore throat?: Yes Do you have a cough?: Yes Do you have any weakness?: Yes Do you have any diarrhea?: No Are you experiencing any unusual bleeding?: No Do you have any muscle aches/pain?: No Do you have any abdominal pain?: No Are you experiencing loss of taste or smell?: No Other Medical History Have you received the Flu Vaccine for this season: Yes Have you received the Pneumonia Vaccine: Yes Review of Systems Review of Systems Review of systems:: pertinent systems reviewed and negative unless documented below Constitutional Constitutional: Reports system reviewed and no additional complaints, except as documented Meds Home Medications and Allergies Home Medications ?Medication ?Instructions ?Recorded ?Confirmed ?Type blood pressure monitor 09/16/22 11/11/24 History carvedilol 25 mg tablet 25 mg PO BID #30 tabs 10/18/24 11/11/24 Rx furosemide 40 mg tablet 40 mg PO DAILY 30 days #30 tabs 10/18/24 11/11/24 Rx irbesartan 150 mg tablet 150 mg PO DAILY 30 days #30 tabs 10/18/24 11/11/24 Rx spironolactone 50 mg tablet 50 mg PO DAILY #30 tabs 10/18/24 11/11/24 Rx New Prescriptions to Start Prescriptions: Allergies Allergy/AdvReac Type Severity Reaction Status Date / Time No Known Allergies Allergy Verified 09/29/22 13:10 Exam Data for Last 24 hours Vital signs and Labs for Last 24 Hours: Temp Pulse Resp BP Pulse Ox O2 Del Method O2 Flow Rate 98.9 F 66 20 128/79 91 L Nasal Cannula 3 11/11/24 21:36 11/11/24 21:36 11/11/24 21:36 11/11/24 21:36 11/11/24 21:36 11/11/24 21:36 11/11/24 21:36 Laboratory Results - last 24 hr 11/11/24 19:25: VBG pH 7.36, VBG pCO2 45.3, VBG pO2 86.1 H, VBG HCO3 25.2, VBG Total CO2 26.6, VBG O2 Saturation 96.3 H, VBG Base Excess -0.2, VBG Lactic Acid 1.5 11/11/24 19:35: WBC 7.1, RBC 5.40, Hgb 16.9, Hct 48.1, MCV 89.1, MCH 31.2, MCHC 35.0, RDW 13.4, Plt Count 179, MPV 7.8, Neut % (Auto) 66.9, Lymph % (Auto) 18.5, [place] % (Auto) 10.6 H, Eos % (Auto) 1.2, Baso % (Auto) 2.7 H, Neut # (Auto) 4.7, Lymph # (Auto) 1.3, [place] # (Auto) 0.8, Eos # (Auto) 0.1, Baso # (Auto) 0.2, PT 10.9, INR 0.97, Sodium 138, Potassium 4.1, Chloride 105, Carbon Dioxide 28, Anion Gap 9.1, BUN 14, Creatinine 0.90, Estimated Creat Clear 104, Estimated GFR 91, Est GFR ( Amer) 110, Glucose 96, Calcium 8.8, Magnesium 1.7, Total Bilirubin 0.6, AST 46, ALT 32, Alkaline Phosphatase 66, Troponin I < 0.01, NT-Pro-B Natriuret Pep < 20.0, Total Protein 7.6, Albumin 4.3, Globulin 3.3 H, Albumin/Globulin Ratio 1.3, Procalcitonin 0.138 I & O for Last 24 hours: Intake & Output 11/08/24 11/09/24 11/10/24 11/11/24 23:59 23:59 23:59 23:59 Weight 145.195 kg Constitutional Constitutional: no acute distress *Routine HEENT Exam Head: Present normocephalic Eye: Present EOMI ENT: Present mucous membranes moist *Routine Neck Exam Neck: Present supple and full ROM *Routine Respiratory Exam Respiratory: Present decreased breath sounds, prolonged expiratory phase and diminished air movement *Routine Cardiovascular Exam Cardiovascular: Present RRR, Normal S1 and Normal S2 *Routine Abdominal Exam Abdominal: Present soft, normoactive bowel sounds and tenderness *Routine Rectal Exam Rectal:: deferred *Routine Genitalia Exam Genitalia:: deferred *Routine Extremities Exam Extremities: Present cyanosis and full ROM *Routine Skin Exam Skin: Present intact *Routine Neurological Exam Neurological: Present alert and oriented X3 Assessment and Plan *Assessment and plan (1) Acute hypoxemic respiratory failure: Status: Acute Category: Medical Code(s): J96.01 - Acute respiratory failure with hypoxia (2) Acute exacerbation of chronic obstructive pulmonary disease: Status: Acute Category: Medical Code(s): J44.1 - Chronic obstructive pulmonary disease with (acute) exacerbation (3) Tobacco abuse counseling: Status: Chronic Category: Medical Code(s): Z71.6 - Tobacco abuse counseling (4) KIEL (obstructive sleep apnea): Status: Acute Category: Medical Code(s): G47.33 - Obstructive sleep apnea (adult) (pediatric) (5) Daytime somnolence: Status: Acute Category: Medical Code(s): R40.0 - Somnolence (6) Snoring: Status: Acute Category: Medical Code(s): R06.83 - Snoring (7) Hypoxia: Status: Acute Category: Medical Code(s): R09.02 - Hypoxemia (8) Hypertension: Status: Chronic Qualifiers: Hypertension type: essential hypertension Qualified Code(s): I10 - Essential (primary) hypertension Category: Medical Code(s): I10 - Essential (primary) hypertension (9) Congestive heart failure: Status: Acute Category: Medical Code(s): I50.9 - Heart failure, unspecified Plan 44-year-old with past medical history of daily smoker, KIEL, hypertension, CHF. Patient presents with SOB, GAYTAN, fevers, chills, dry cough times several days. Patient's O2 saturation 80% in emergency room. Patient admitted for COPD exacerbation. Patient's procalcitonin 0.138, CTA chest without PE but possible infectious changes, WBC 7.1. Patient admitted for bronchitis likely secondary to undiagnosed COPD exacerbation. Problems as listed below: Lab/imaging reviewed at time of admission: CTA chest: No central PE. Scattered areas of consolidative changes which are nonspecific but could reflect early or resolving infection. ?VBG pH 7.36, pCO2 45.3, pO2 86.1, LA 1.5 ? WBC 7.1, Hg 6.9, platelets 179, NA 138, K4.1, CL 105, CO2 28, BUN 14, creatinine 0.9, GLU 96, MAG 1.6, BNP<20, ALB 4.3, procalcitonin 0.138. I will repeat CBC, mag, BMP in a.m. Bronchitis with COPD suspected: ? DuoNebs 3 mL inhaled Q6 while awake, albuterol 2.5 mg inhaled every 4 hours as needed shortness of breath, incentive spirometer every 2 hours while awake, doxycycline 100 mg IV every 12 x 5 days, O2 to keep sats greater than 90%, Solu-Medrol 40 IV every 6, sputum culture if patient able to make sputum. Nasopharyngeal respiratory panel. Consult pulmonary for a.m. evaluation. ?Patient smokes daily and likely suffering from undiagnosed COPD. Will require PFTs in a few weeks once bronchitis resolves. Daily smoker: ? Smoking cessation advice given during hospitalization. Nicotine 21 mg transdermal daily as needed nicotine cravings CHF: Aldactone 50 mg p.o. daily, furosemide 40 mg p.o. daily, carvedilol 25 mg p.o. twice daily Hypertension: As above and CHF plus irbesartan 150 mg p.o. daily PPx Lovenox subcutaneous CODE STATUS full MDM [place]: Moderate, patient presents with acute bronchitis with systemic symptoms Data: As above. Patient's girlfriend acted as independent historian during interview with myself today. I spoke with the emergency room provider and agreed patient required admission to hospital for bronchitis likely due to undiagnosed COPD. Risk: Moderate. Prescription drug management as noted above including nebulization treatments, and IV Solu-Medrol. I made decision to admit patient to hospital due to failed bronchitis ER management. 35 minutes of total care time spent on patient by Dr. Webber 11/11/2024
[2024-11-11 21:55] LABS: Respiratory Syncytial Virus Detected (NotDetected)
[2024-11-11] MEDS: METHYLPREDNISOLONE SOD SUCC 40MG VIAL 40 MG IV (22:02)
[2024-11-11] MEDS: BENZONATATE 100MG CAPSULE 100 MG PO (22:28)
[2024-11-11] MEDS: guaiFENesin 200MG/10ML SYRUP UDC 200 MG PO (22:29)
[2024-11-11 23:01] LABS: Troponin I < 0.01 ng/ml (0.00-0.034)
[2024-11-11] MEDS: DOXYCYCLINE HYCL 100 MG TABLET PO (23:24)
[2024-11-11] MEDS: CARVEDILOL 25MG TABLET 25 MG PO (23:25)
[2024-11-11] MEDS: IPRATROPIUM/ALBUTEROL 3 ML NEB IH (23:48)
[2024-11-12] VITALS (12 sets, daily range): BP systolic 125–166; BP diastolic 73–91; PULSE 58–80; RESP 16–20; TEMP 36.6–37; O2SAT 89–96; BMI 45.9
[2024-11-12 01:49] LABS: Troponin I < 0.01 ng/ml (0.00-0.034)
[2024-11-12] MEDS: METHYLPREDNISOLONE SOD SUCC 40MG VIAL 40 MG IV ×4 (02:36→21:29)
[2024-11-12] MEDS: IPRATROPIUM/ALBUTEROL 3 ML NEB IH ×4 (05:56→23:43)
[2024-11-12 07:29] LABS: Chloride 103 mmol/L (98-107); Potassium 4.2 mmoL/L (3.5-5.1); Sodium 134 mmol/L (136-145)
[2024-11-12 07:31] LABS: Blood Urea Nitrogen 16 mg/dl (9-20); Creatinine Clearance Estimated 113 mL/min (50-200); Estimated Glomerular Filt Rate 105 ml/min (>60); GFR (African American) 126 ML/MIN (>60)
[2024-11-12 07:32] LABS: Anion Gap 7.2 mEq/L (5-15); Calcium 8.8 mg/dl (8.4-10.2); Carbon Dioxide 28 mmol/L (22.0-30.0); Glucose 139 mg/dl (74-100); Magnesium 1.8 mg/dl (1.6-2.3)
[2024-11-12 07:33] LABS: Basophils % 0.5 % (0.1-2.0); Hematocrit 47.9 % (42.0-52.0); Hemoglobin 16.4 g/dL (14.1-18.0); Lymphocytes # 0.8 K/mm3 (0.7-4.5); Lymphocytes % 16.6 % (10-50); Mean Corpuscular HGB Conc 34.3 g/dL (31.8-35.4); Mean Corpuscular Hemoglobin 30.6 pg (27.0-31.2); Mean Corpuscular Volume 89.2 fl (80-94); Mean Platelet Volume 7.8 fl (7.4-10.4); Monocytes # 0.1 K/mm3 (0.1-1.0); Monocytes % 2.4 % (1.7-9.3); Neutrophils # 3.8 K/mm3 (1.8-7.8); Neutrophils % 80.5 % (37.0-80.0); Platelet Count 181 K/mm3 (142-424); Red Blood Count 5.37 M/mm3 (4.60-6.20); Red Cell Distribution Width 13.5 % (11.5-17.5); White Blood Count 4.7 K/mm3 (4.8-10.8)
[2024-11-12 07:57] LABS: Troponin I < 0.01 ng/ml (0.00-0.034)
--- NOTE | 2024-11-12 08:24 | HMH.PHAINT1 ---
Pharmacy Intervention Comments: Home medication list verified using list from outpatient pharmacy
[2024-11-12] MEDS: CARVEDILOL 25MG TABLET 25 MG PO ×2 (09:27→21:29)
[2024-11-12] MEDS: IRBESARTAN 150MG TAB 150 MG PO (09:27)
[2024-11-12] MEDS: FUROSEMIDE 40 MG TABLET PO (09:27)
[2024-11-12] MEDS: ENOXAPARIN 40MG/0.4ML SYRINGE 40 MG SUBCUT ×2 (09:27→21:29)
[2024-11-12] MEDS: DOXYCYCLINE HYCL 100 MG TABLET PO ×2 (09:27→21:29)
[2024-11-12] MEDS: SPIRONOLACTONE 25MG TABLET 50 MG PO (09:28)
--- NOTE | 2024-11-12 09:42 | EXP.PULM.CON ---
History of Present Illness History of present illness: Mr. Nicole is a 44-year-old male current smoker greater than [id number] smoking history, hypertensive cardiomyopathy, lung nodule and lymphadenopathy status post EBUS FNA 2021 negative for disease/lymphoma/infectious etiology presented to the ER with worsening respiratory distress worsening cough productive phlegm and generalized weakness. Admits worsening respiratory distress for the last 7 days. No significant respiratory symptoms at baseline. Not using any inhaler therapies at baseline. [facility] Disclaimer: The information contained in this section may have been updated after the patient was seen, as this information can be updated by other users. Medical History (Updated 11/12/24 @ 12:57 by Cami Hassan MD) Viral pneumonia Tobacco abuse counseling Tobacco abuse Mediastinal lymphadenopathy Hilar lymphadenopathy Lung nodule seen on imaging study KIEL (obstructive sleep apnea) Daytime somnolence Snoring Malignant hypertension Sinus tachycardia Surgical History History of bronchoscopy History of elbow surgery History of ankle surgery History of foot surgery Family History Other Heart attack Hypertension Social History (Updated 11/12/24 @ 00:31 by Tess Bennett RN) Smoking Status: Current every day smoker tobacco type: cigarettes packs per day: 1 second hand exposure: Yes alcohol intake: never substance use type: denies use current occupational status: employed Travel in the last 8 weeks: None housing: house caffeine: Yes Have you lived/traveled outside [place] in past 30 days?: No Contact w/someone who lives/traveled outside US past 30 days?: No Exposure to someone with infectious disease in past 14 days?: No Do you have a fever (greater than 100.4 F or 38 C)?: No Have you tested positive for COVID-19: No Exposed to someone with COVID-19 in past 14 days?: No Do you have a sore throat?: Yes Do you have a cough?: Yes Do you have any weakness?: Yes Do you have any diarrhea?: No Are you experiencing any unusual bleeding?: No Do you have any muscle aches/pain?: No Do you have any abdominal pain?: No Are you experiencing loss of taste or smell?: No Review of Systems Constitutional Constitutional: Reports anorexia, Reports body ache(s), Reports fatigue, Reports lethargy and Reports weakness Eyes Eyes: Denies eye discharge, Denies dry eyes, Denies irritation and Denies itchy eyes ENT Ears, Nose, Mouth, and Throat: Denies epistaxis, Denies facial pain, Denies lip swelling, Reports nasal congestion, Reports nasal discharge, Reports nasal obstruction and Denies throat swelling *Cardiovascular Cardiovascular: Reports dyspnea and Reports dyspnea on exertion *Respiratory Respiratory: Reports change in phlegm color, Reports chest congestion, Reports cough, Reports dyspnea, Reports dyspnea on exertion, Reports excessive phlegm production, Denies hemoptysis, Denies pain on inspiration, Denies pain with cough and Reports wheezing *Gastrointestinal Gastrointestinal: Denies abdominal pain, Denies belching and Denies cramping *Musculoskeletal Musculoskeletal: Reports back pain, Reports myalgias and Reports other (No small joint swelling or Pain) *Neurologic Neurologic: Reports weakness Psychiatric Psychiatric: Denies homicidal ideation and Denies suicidal ideation Endocrine Endocrine: Reports fatigue and Denies heat intolerance Hematologic/Lymphatic Hematologic/Lymphatic: Denies easy bleeding and Denies lymphadenopathy Allergic/Immunologic Allergic/Immunologic: Denies itchy eyes, Denies lip swelling, Denies throat swelling and Reports wheezing Pulmonology Exam Inpatient Vital signs and Labs for Last 24 Hours: Temp Pulse Resp BP Pulse Ox O2 Del Method O2 Flow Rate 98.1 F 70 18 160/83 H 91 L Nasal Cannula 3 11/12/24 08:00 11/12/24 08:00 11/12/24 08:00 11/12/24 08:00 11/12/24 09:20 11/12/24 09:20 11/12/24 09:20 FiO2 35 11/12/24 05:58 Laboratory Results - last 24 hr 11/11/24 19:25: VBG pH 7.36, VBG pCO2 45.3, VBG pO2 86.1 H, VBG HCO3 25.2, VBG Total CO2 26.6, VBG O2 Saturation 96.3 H, VBG Base Excess -0.2, VBG Lactic Acid 1.5 11/11/24 19:35: WBC 7.1, RBC 5.40, Hgb 16.9, Hct 48.1, MCV 89.1, MCH 31.2, MCHC 35.0, RDW 13.4, Plt Count 179, MPV 7.8, Neut % (Auto) 66.9, Lymph % (Auto) 18.5, Dickens % (Auto) 10.6 H, Eos % (Auto) 1.2, Baso % (Auto) 2.7 H, Neut # (Auto) 4.7, Lymph # (Auto) 1.3, Dickens # (Auto) 0.8, Eos # (Auto) 0.1, Baso # (Auto) 0.2, PT 10.9, INR 0.97, Sodium 138, Potassium 4.1, Chloride 105, Carbon Dioxide 28, Anion Gap 9.1, BUN 14, Creatinine 0.90, Estimated Creat Clear 104, Estimated GFR 91, Est GFR ( Amer) 110, Glucose 96, Calcium 8.8, Magnesium 1.7, Total Bilirubin 0.6, AST 46, ALT 32, Alkaline Phosphatase 66, Troponin I < 0.01, NT-Pro-B Natriuret Pep < 20.0, Total Protein 7.6, Albumin 4.3, Globulin 3.3 H, Albumin/Globulin Ratio 1.3, Procalcitonin 0.138, Chlamy pneumoniae PCR Not detected, Adenovirus (PCR) Not detected, B. pertussis DNA (PCR) Not detected, Coronavirus OC43 (PCR) Not detected, Coronavirus HKU1 (PCR) Not detected, Coronavirus 229E (PCR) Not detected, SARS-CoV-2 (PCR) Not detected, Coronavirus NL63 (PCR) Not detected, Human Metapneumovir PCR Not detected, Influenza A (H1) PCR Not detected, Influ A (H1N1/09) PCR Not detected, Influenza A (H3) PCR Not detected, Influenza Type A (PCR) Not detected, Influenza Type B (PCR) Not detected, M. pneumoniae (PCR) Not detected, Parainfluenza 1 (PCR) Not detected, Parainfluenza 2 (PCR) Not detected, Parainfluenza 3 (PCR) Not detected, Parainfluenza 4 (PCR) Not detected, RSV (PCR) Detected A, Entero/Rhino (PCR) Not detected 11/11/24 22:10: Troponin I < 0.01 11/12/24 01:10: Troponin I < 0.01 11/12/24 06:36: WBC 4.7 L D, RBC 5.37, Hgb 16.4, Hct 47.9, MCV 89.2, MCH 30.6, MCHC 34.3, RDW 13.5, Plt Count 181, MPV 7.8, Neut % (Auto) 80.5 H, Lymph % (Auto) 16.6, Dickens % (Auto) 2.4, Eos % (Auto) 0.0 L, Baso % (Auto) 0.5, Neut # (Auto) 3.8, Lymph # (Auto) 0.8, Dickens # (Auto) 0.1, Eos # (Auto) 0.0, Baso # (Auto) 0.0, Sodium 134 L, Potassium 4.2, Chloride 103, Carbon Dioxide 28, Anion Gap 7.2, BUN 16, Creatinine 0.80, Estimated Creat Clear 113, Estimated GFR 105, Est GFR ( Amer) 126, Glucose 139 H D, Calcium 8.8, Magnesium 1.8, Troponin I < 0.01 I & O for Labs for Last 24 Hours: Intake & Output 11/09/24 11/10/24 11/11/24 11/12/24 23:59 23:59 23:59 23:59 Intake Total 480 / 480 Output Total 0 / 0 Balance 480 / 480 Weight 320 lb 1.6 oz 310 lb Constitutional: Present moderate distress Head: Present normocephalic and atraumatic ENT: Present normal exam, normal oropharynx and mucous membranes moist Neck: Present normal inspection and full ROM Respiratory: Present prolonged expiratory phase, respiratory distress and wheezes; Absent able to speak in complete sentences Cardiac: Present S1/S2, Tachycardia and radial pulses present GI: Present soft and distention; Absent tenderness or guarding Skin: Present intact; Absent cyanosis or jaundice Neuro: Present alert, awake and oriented x 3 Extremities: Present normal inspection; Absent clubbing or cyanosis Psychiatric: Present normal affect and cooperative Meds Home Medications and Allergies Home Medications ?Medication ?Instructions ?Recorded ?Confirmed ?Type blood pressure monitor 09/16/22 11/11/24 History carvedilol 25 mg tablet 25 mg PO BID #30 tabs 10/18/24 11/11/24 Rx furosemide 40 mg tablet 40 mg PO DAILY 30 days #30 tabs 10/18/24 11/11/24 Rx irbesartan 150 mg tablet 150 mg PO DAILY 30 days #30 tabs 10/18/24 11/11/24 Rx spironolactone 50 mg tablet 50 mg PO DAILY #30 tabs 10/18/24 11/11/24 Rx New Prescriptions to Start Prescriptions: Allergies Allergy/AdvReac Type Severity Reaction Status Date / Time No Known Allergies Allergy Verified 09/29/22 13:10 Results Laboratory Findings 11/12/24 06:36 11/12/24 06:36 PT/INR, D-dimer PT 10.9 seconds (10.1-12.5) 11/11/24 19:35 INR 0.97 (0.9-1.1) 11/11/24 19:35 Abnormal lab findings: Abnormal Labs 11/11/24 11/11/24 11/12/24 19:25 19:35 06:36 WBC 4.7 L D Neut % (Auto) 80.5 H Dickens % (Auto) 10.6 H Eos % (Auto) 0.0 L Baso % (Auto) 2.7 H VBG pO2 86.1 H VBG O2 Saturation 96.3 H Sodium 134 L Glucose 139 H D Globulin 3.3 H RSV (PCR) Detected A Assessment and Plan *Assessment and plan (1) Acute hypoxemic respiratory failure: Status: Acute Category: Medical Code(s): J96.01 - Acute respiratory failure with hypoxia (2) Viral pneumonia: Status: Acute Category: Medical Code(s): J12.9 - Viral pneumonia, unspecified Plan Mr. Nicole is a 44-year-old male current smoker greater than [id number] smoking history, hypertensive cardiomyopathy, lung nodule and lymphadenopathy status post EBUS FNA 2021 negative for disease/lymphoma/infectious etiology presented to the ER with worsening respiratory distress worsening cough productive phlegm and generalized weakness. Admits worsening respiratory distress for the last 7 days. No significant respiratory symptoms at baseline. Not using any inhaler therapies at baseline. CTA upon admission no evidence of central pulmonary embolism. No dense consolidative airspace changes. Noted lower lobe bronchial thickening noted. The previous noted right lower lobe 1 cm nodule relatively stable from 2021. No significant worsening lymphadenopathy appreciated. Lymphopenia noted. Afebrile. Hemodynamically stable. Venous blood gas upon admission no evidence of hypoxic/hypercarbic respiratory failure. Complains of respiratory viral PCR panel positive for RSV. Currently being managed with doxycycline, DuoNebs and steroids. Continue to receive home diuretic regimen. On examination patient appeared to be in severe respiratory distress. Bilateral diffuse wheezing noted on auscultation. Plan: DuoNebs every 6 hours along with Pulmicort every 12 scheduled Continue oxygen supplementation to maintain O2 saturation above 90% number currently needing 3 to 4 L to maintain sats of 90% and above Continue doxycycline pending sputum culture results F/U Bilateral lower extremity venous Doppler
--- NOTE | 2024-11-12 12:59 | CA_ITS ---
FINAL REPORT CLINICAL HISTORY: HYPOXIA COMPARISON: None FINDINGS: Multiple transverse and longitudinal scans were performed of the femoral popliteal deep venous system, with augmentation and compression maneuvers. Normal phasic flow was noted in the visualized deep venous system. No intraluminal increased echogenicity is noted to suggest thrombus. There is normal compression and augmentation of the venous structures. No abnormal venous collaterals are seen. IMPRESSION: No evidence of deep venous thrombosis of the bilateral lower extremities. Reviewed, Interpreted and Dictated by Addison Justin MD Transcribed by Emily Mariano Authenticated and [facility]
--- NOTE | 2024-11-12 15:46 | EXP.ACUTE.PN ---
Subjective *Date: 11/12/24 *Time: 15:51 Interval history: Feeling marginally better this morning. Weaned to 4 L oxygen from Ventimask. Tolerating p.o. intake. Afebrile overnight. No nausea or vomiting. Medical Exam Vital signs and Labs for Last 24 Hours: Vital Signs Temp Pulse Pulse Resp BP BP Pulse Ox 11/12/24 12:00 98.1 F 60 20 125/73 93 L 11/12/24 11:16 76 11/12/24 11:16 78 11/12/24 11:16 91 L 11/12/24 09:20 91 L 11/12/24 09:00 11/12/24 08:00 98.1 F 70 18 160/83 H 89 L 11/12/24 07:00 11/12/24 05:58 72 11/12/24 05:58 76 11/12/24 05:58 96 11/12/24 04:39 11/12/24 04:00 98.2 F 58 L 16 139/84 93 L 11/12/24 03:00 11/12/24 00:45 68 11/12/24 00:35 11/12/24 00:00 98.6 F 66 16 166/86 H 95 11/11/24 23:00 11/11/24 21:37 92 L 11/11/24 21:36 98.9 F 66 20 128/79 91 L 11/11/24 21:27 11/11/24 21:25 98.7 F 79 26 H 128/79 11/11/24 19:24 97.8 F 79 20 154/75 H 87 L O2 Del Method O2 Flow Rate FiO2 11/12/24 12:00 Nasal Cannula 4 11/12/24 11:16 11/12/24 11:16 11/12/24 11:16 Nasal Cannula 4 11/12/24 09:20 Nasal Cannula 3 11/12/24 09:00 Nasal Cannula 11/12/24 08:00 Nasal Cannula 2 11/12/24 07:00 Venturi Mask 11/12/24 05:58 11/12/24 05:58 11/12/24 05:58 Venturi Mask 9 35 11/12/24 04:39 Venturi Mask 11/12/24 04:00 11 11/12/24 03:00 Venturi Mask 11/12/24 00:45 11/12/24 00:35 Venturi Mask 11/12/24 00:00 Venturi Mask 9 11/11/24 23:00 Nasal Cannula 3 11/11/24 21:37 Nasal Cannula 3 11/11/24 21:36 Nasal Cannula 3 11/11/24 21:27 Nasal Cannula 3 11/11/24 21:25 Nasal Cannula 4 11/11/24 19:24 Room Air Intake and Output 11/11/24 11/12/24 11/12/24 23:59 07:59 15:59 Intake Total 240 / 750 510 / 750 Output Total 0 / 0 Balance 240 / 750 510 / 750 Intake: Intake, Oral Amount 240 / 750 510 / 750 Output: Output, Urine Amount 0 / 0 Other: Number of Unmeasured Voids 1 Weight 145.195 kg 140.614 kg Patient Weight 11/12/24 23:59 Weight 140.614 kg Laboratory Results - last 24 hr 11/11/24 19:25: VBG pH 7.36, VBG pCO2 45.3, VBG pO2 86.1 H, VBG HCO3 25.2, VBG Total CO2 26.6, VBG O2 Saturation 96.3 H, VBG Base Excess -0.2, VBG Lactic Acid 1.5 11/11/24 19:35: WBC 7.1, RBC 5.40, Hgb 16.9, Hct 48.1, MCV 89.1, MCH 31.2, MCHC 35.0, RDW 13.4, Plt Count 179, MPV 7.8, Neut % (Auto) 66.9, Lymph % (Auto) 18.5, Warren % (Auto) 10.6 H, Eos % (Auto) 1.2, Baso % (Auto) 2.7 H, Neut # (Auto) 4.7, Lymph # (Auto) 1.3, Warren # (Auto) 0.8, Eos # (Auto) 0.1, Baso # (Auto) 0.2, PT 10.9, INR 0.97, Sodium 138, Potassium 4.1, Chloride 105, Carbon Dioxide 28, Anion Gap 9.1, BUN 14, Creatinine 0.90, Estimated Creat Clear 104, Estimated GFR 91, Est GFR ( Amer) 110, Glucose 96, Calcium 8.8, Magnesium 1.7, Total Bilirubin 0.6, AST 46, ALT 32, Alkaline Phosphatase 66, Troponin I < 0.01, NT-Pro-B Natriuret Pep < 20.0, Total Protein 7.6, Albumin 4.3, Globulin 3.3 H, Albumin/Globulin Ratio 1.3, Procalcitonin 0.138, Chlamy pneumoniae PCR Not detected, Adenovirus (PCR) Not detected, B. pertussis DNA (PCR) Not detected, Coronavirus OC43 (PCR) Not detected, Coronavirus HKU1 (PCR) Not detected, Coronavirus 229E (PCR) Not detected, SARS-CoV-2 (PCR) Not detected, Coronavirus NL63 (PCR) Not detected, Human Metapneumovir PCR Not detected, Influenza A (H1) PCR Not detected, Influ A (H1N1/09) PCR Not detected, Influenza A (H3) PCR Not detected, Influenza Type A (PCR) Not detected, Influenza Type B (PCR) Not detected, M. pneumoniae (PCR) Not detected, Parainfluenza 1 (PCR) Not detected, Parainfluenza 2 (PCR) Not detected, Parainfluenza 3 (PCR) Not detected, Parainfluenza 4 (PCR) Not detected, RSV (PCR) Detected A, Entero/Rhino (PCR) Not detected 11/11/24 22:10: Troponin I < 0.01 11/12/24 01:10: Troponin I < 0.01 11/12/24 06:36: WBC 4.7 L D, RBC 5.37, Hgb 16.4, Hct 47.9, MCV 89.2, MCH 30.6, MCHC 34.3, RDW 13.5, Plt Count 181, MPV 7.8, Neut % (Auto) 80.5 H, Lymph % (Auto) 16.6, Warren % (Auto) 2.4, Eos % (Auto) 0.0 L, Baso % (Auto) 0.5, Neut # (Auto) 3.8, Lymph # (Auto) 0.8, Warren # (Auto) 0.1, Eos # (Auto) 0.0, Baso # (Auto) 0.0, Sodium 134 L, Potassium 4.2, Chloride 103, Carbon Dioxide 28, Anion Gap 7.2, BUN 16, Creatinine 0.80, Estimated Creat Clear 113, Estimated GFR 105, Est GFR ( Am) 126, Glucose 139 H D, Calcium 8.8, Magnesium 1.8, Troponin I < 0.01 I & O for Labs for Last 24 Hours: Intake & Output 11/09/24 11/10/24 11/11/24 11/12/24 23:59 23:59 23:59 23:59 Intake Total 750 / 750 Output Total 0 / 0 Balance 750 / 750 Weight 145.195 kg 140.614 kg Constitutional: Present no acute distress, morbidly obese and cooperative Head: Present atraumatic and normocephalic ENT: Present normal exam Respiratory: Present prolonged expiratory phase, wheezes and normal respiratory effort; Absent respiratory distress, rhonchi or crackles Cardiac: Present Reg Rate and Rhythm GI: Present soft and normal bowel sounds; Absent distention or tenderness Extremities: Present normal inspection and full ROM Skin: Present intact; Absent erythema Neuro: Present Grossly Intact, alert, awake, oriented x 3 and moves all extremities Assessment and Plan *Assessment and plan (1) Acute hypoxemic respiratory failure: Status: Acute Category: Medical Code(s): J96.01 - Acute respiratory failure with hypoxia (2) Viral pneumonia: Status: Acute Category: Medical Code(s): J12.9 - Viral pneumonia, unspecified (3) Acute exacerbation of chronic obstructive pulmonary disease: Status: Acute Category: Medical Code(s): J44.1 - Chronic obstructive pulmonary disease with (acute) exacerbation (4) Tobacco abuse counseling: Status: Chronic Category: Medical Code(s): Z71.6 - Tobacco abuse counseling (5) KIEL (obstructive sleep apnea): Status: Acute Category: Medical Code(s): G47.33 - Obstructive sleep apnea (adult) (pediatric) (6) Daytime somnolence: Status: Acute Category: Medical Code(s): R40.0 - Somnolence (7) Snoring: Status: Acute Category: Medical Code(s): R06.83 - Snoring (8) Hypoxia: Status: Acute Category: Medical Code(s): R09.02 - Hypoxemia (9) Hypertension: Status: Chronic Qualifiers: Hypertension type: essential hypertension Qualified Code(s): I10 - Essential (primary) hypertension Category: Medical Code(s): I10 - Essential (primary) hypertension (10) Congestive heart failure: Status: Acute Category: Medical Code(s): I50.9 - Heart failure, unspecified Plan 44-year-old with past medical history of daily smoker, KIEL, hypertension, CHF. Patient presents with SOB, GAYTAN, fevers, chills, dry cough times several days. Patient's O2 saturation 80% in emergency room. Patient admitted for COPD exacerbation. Patient's procalcitonin 0.138, CTA chest without PE but possible infectious changes, WBC 7.1. Patient admitted for bronchitis likely secondary to undiagnosed COPD exacerbation from RSV found to be positive on his respiratory panel. Pulmonology assisting with care today. Problems addressed as follows: Bronchitis with COPD suspected: RSV pneumonia Acute hypoxemic respiratory failure -Discussed case with pulmonology, recommend continuing DuoNebs every 6 hours and Pulmicort every 12 hours. Supplemental oxygen as needed for goal sats greater 90%. Currently on 4 L. -Continue doxycycline, sputum culture pending. - F/U Bilateral lower extremity venous Doppler - Patient smokes daily and likely suffering from undiagnosed COPD. Will require PFTs in a few weeks once bronchitis resolves. -White count normal at 4.7. Kidney function normal with BUN 16, creatinine 0.8. Repeat CBC, CMP, magnesium ordered for the morning Daily smoker: ? Smoking cessation advice given during hospitalization. Nicotine 21 mg transdermal daily as needed nicotine cravings CHF: Aldactone 50 mg p.o. daily, furosemide 40 mg p.o. daily, carvedilol 25 mg p.o. twice daily Hypertension: As above and CHF plus irbesartan 150 mg p.o. daily PPx Lovenox subcutaneous CODE STATUS full Regular diet
--- NOTE | 2024-11-12 17:28 | PC.NURSE ---
Patient continues to have oxygen requirement. Patient weaned from venturi to 3L NC this shift. 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
[2024-11-12] MEDS: BUDESONIDE 0.5MG/2ML NEB 0.5 MG IH (18:24)
[2024-11-13] VITALS: BP 163/84; PULSE 64; RESP 17; TEMP 36.7; O2SAT 92
[2024-11-13] MEDS: METHYLPREDNISOLONE SOD SUCC 40MG VIAL 40 MG IV (03:02)
[2024-11-13 04:00] VITALS: BP 165/95; PULSE 54; RESP 18; TEMP 36.6; O2SAT 94; BMI 47.0
--- NOTE | 2024-11-13 04:55 | PC.NURSE ---
Patient is alert and oriented x4. Patient was observed to have eyes closed, respirations even and unlabored, and no apparent distress for the majority of the night; he was also observed to have occasional waking periods. Patient was given a couple extra pillows for comfort and elevation. Patient's oxygen flow was able to be weaned down to 2 L by 03:00 this shift; oxygen saturations have remained > 90%. Patient expressed feeling a little better, but he continued to report having a productive cough. Sputum has been broken up by breathing treatments. Incentive spirometer is at the bedside. Patient's bowel sounds are very active; he has not reported having any diarrhea this shift. He has been drinking adequate fluids. Patient has been tolerating independent ambulation without difficulties. Upon auscultation, patient's lung sounds were clear with slight, diminished air movement. At this time, the patient is lying supine in bed. He does not have any further complaints. No acute changes noted thus far. Call light within reach.
[2024-11-13 06:10] LABS: HCV Ab Non Reactive (Non Reactive)
[2024-11-13 06:29] VITALS: PULSE 80; PULSE 84; O2SAT 93
[2024-11-13] MEDS: IPRATROPIUM/ALBUTEROL 3 ML NEB IH (06:29)
[2024-11-13] MEDS: BUDESONIDE 0.5MG/2ML NEB 0.5 MG IH (06:29)
[2024-11-13 08:00] VITALS: BP 134/68; PULSE 55; RESP 18; TEMP 36.5; O2SAT 90; O2SAT 93
[2024-11-13] MEDS: FUROSEMIDE 40 MG TABLET PO (08:51)
[2024-11-13] MEDS: CARVEDILOL 25MG TABLET 25 MG PO (08:51)
[2024-11-13] MEDS: SPIRONOLACTONE 25MG TABLET 50 MG PO (08:51)
[2024-11-13] MEDS: ENOXAPARIN 40MG/0.4ML SYRINGE 40 MG SUBCUT (08:51)
[2024-11-13] MEDS: IRBESARTAN 150MG TAB 150 MG PO (08:51)
[2024-11-13] MEDS: DOXYCYCLINE HYCL 100 MG TABLET PO (08:54)
[2024-11-13 08:59] LABS: Basophils # 0.1 K/mm3 (0-0.2); Basophils % 0.4 % (0.1-2.0); Hematocrit 46.8 % (42.0-52.0); Lymphocytes # 1.2 K/mm3 (0.7-4.5); Lymphocytes % 7.6 % (10-50); Mean Corpuscular HGB Conc 34.3 g/dL (31.8-35.4); Mean Corpuscular Hemoglobin 31.2 pg (27.0-31.2); Mean Platelet Volume 7.9 fl (7.4-10.4); Monocytes # 0.6 K/mm3 (0.1-1.0); Neutrophils # 14.2 K/mm3 (1.8-7.8); Platelet Count 204 K/mm3 (142-424); Red Blood Count 5.14 M/mm3 (4.60-6.20); Red Cell Distribution Width 13.4 % (11.5-17.5); White Blood Count 16.1 K/mm3 (4.8-10.8)
[2024-11-13 09:01] LABS: MANUAL DIFFERENTIAL MANUAL DIFFERENTIAL (MANUAL DIFF)
[2024-11-13 09:09] LABS: Chloride 103 mmol/L (98-107); Sodium 132 mmol/L (136-145)
[2024-11-13 09:10] LABS: Potassium 4.5 mmoL/L (3.5-5.1)
[2024-11-13 09:13] LABS: Anion Gap 6.5 mEq/L (5-15); Blood Urea Nitrogen 24 mg/dl (9-20); Calcium 8.7 mg/dl (8.4-10.2); Carbon Dioxide 27 mmol/L (22.0-30.0); Creatinine Clearance Estimated 100 mL/min (50-200); Estimated Glomerular Filt Rate 91 ml/min (>60); GFR (African American) 110 ML/MIN (>60); Glucose 246 mg/dl (74-100); Magnesium 1.9 mg/dl (1.6-2.3)
[2024-11-13 09:20] LABS: Lymphocytes % 8 % (10-50); Monocytes % 2 % (2-9); Neutrophils % 90 % (42-76); Platelet Estimate Normal; RBC Morphology Normal; Total Cells Counted 100
--- NOTE | 2024-11-13 09:27 | PC.NURSE ---
RA o2 sat while at rest 90%, after ambulating in hallway o2 sat 92%. bilat exp wheezes heard t/o but overall pt states he feels much better and breathing better
--- NOTE | 2024-11-13 09:44 | EXP.PULM.PN ---
Subjective *Date: 11/13/24 *Time: 10:51 Interval history: No acute respiratory vents overnight. Patient admits significant improvement in his respiratory distress Pulmonology Exam Inpatient Vital signs and Labs for Last 24 Hours: Temp Pulse Resp BP Pulse Ox O2 Del Method O2 Flow Rate 97.7 F 55 L 18 134/68 90 L Room Air 2 11/13/24 08:00 11/13/24 08:00 11/13/24 08:00 11/13/24 08:00 11/13/24 08:00 11/13/24 08:00 11/13/24 08:00 FiO2 35 11/12/24 05:58 Laboratory Results - last 24 hr 11/11/24 19:35: Hepatitis C Antibody Non reactive 11/13/24 08:34: WBC 16.1 H D, RBC 5.14, Hgb 16.0, Hct 46.8, MCV 91.0, MCH 31.2, MCHC 34.3, RDW 13.4, Plt Count 204, MPV 7.9, Neut % (Auto) 88.0 H, Lymph % (Auto) 7.6 L, [place] % (Auto) 4.0, Eos % (Auto) 0.0 L, Baso % (Auto) 0.4, Neut # (Auto) 14.2 H, Lymph # (Auto) 1.2, [place] # (Auto) 0.6, Eos # (Auto) 0.0, Baso # (Auto) 0.1, Total Counted 100, Neutrophils % (Manual) 90 H, Lymphocytes % (Manual) 8 L, Monocytes % (Manual) 2, Platelet Estimate Normal, RBC Morphology Normal, Sodium 132 L, Potassium 4.5, Chloride 103, Carbon Dioxide 27, Anion Gap 6.5, BUN 24 H D, Creatinine 0.90, Estimated Creat Clear 100, Estimated GFR 91, Est GFR ( Amer) 110, Glucose 246 H, Calcium 8.7, Magnesium 1.9 Temp Pulse Resp BP Pulse Ox O2 Del Method O2 Flow Rate 98.1 F 70 18 160/83 H 91 L Nasal Cannula 3 11/12/24 08:00 11/12/24 08:00 11/12/24 08:00 11/12/24 08:00 11/12/24 09:20 11/12/24 09:20 11/12/24 09:20 FiO2 35 11/12/24 05:58 Laboratory Results - last 24 hr 11/11/24 19:25: VBG pH 7.36, VBG pCO2 45.3, VBG pO2 86.1 H, VBG HCO3 25.2, VBG Total CO2 26.6, VBG O2 Saturation 96.3 H, VBG Base Excess -0.2, VBG Lactic Acid 1.5 11/11/24 19:35: WBC 7.1, RBC 5.40, Hgb 16.9, Hct 48.1, MCV 89.1, MCH 31.2, MCHC 35.0, RDW 13.4, Plt Count 179, MPV 7.8, Neut % (Auto) 66.9, Lymph % (Auto) 18.5, [place] % (Auto) 10.6 H, Eos % (Auto) 1.2, Baso % (Auto) 2.7 H, Neut # (Auto) 4.7, Lymph # (Auto) 1.3, [place] # (Auto) 0.8, Eos # (Auto) 0.1, Baso # (Auto) 0.2, PT 10.9, INR 0.97, Sodium 138, Potassium 4.1, Chloride 105, Carbon Dioxide 28, Anion Gap 9.1, BUN 14, Creatinine 0.90, Estimated Creat Clear 104, Estimated GFR 91, Est GFR ( Amer) 110, Glucose 96, Calcium 8.8, Magnesium 1.7, Total Bilirubin 0.6, AST 46, ALT 32, Alkaline Phosphatase 66, Troponin I < 0.01, NT-Pro-B Natriuret Pep < 20.0, Total Protein 7.6, Albumin 4.3, Globulin 3.3 H, Albumin/Globulin Ratio 1.3, Procalcitonin 0.138, Chlamy pneumoniae PCR Not detected, Adenovirus (PCR) Not detected, B. pertussis DNA (PCR) Not detected, Coronavirus OC43 (PCR) Not detected, Coronavirus HKU1 (PCR) Not detected, Coronavirus 229E (PCR) Not detected, SARS-CoV-2 (PCR) Not detected, Coronavirus NL63 (PCR) Not detected, Human Metapneumovir PCR Not detected, Influenza A (H1) PCR Not detected, Influ A (H1N1/09) PCR Not detected, Influenza A (H3) PCR Not detected, Influenza Type A (PCR) Not detected, Influenza Type B (PCR) Not detected, M. pneumoniae (PCR) Not detected, Parainfluenza 1 (PCR) Not detected, Parainfluenza 2 (PCR) Not detected, Parainfluenza 3 (PCR) Not detected, Parainfluenza 4 (PCR) Not detected, RSV (PCR) Detected A, Entero/Rhino (PCR) Not detected 11/11/24 22:10: Troponin I < 0.01 11/12/24 01:10: Troponin I < 0.01 11/12/24 06:36: WBC 4.7 L D, RBC 5.37, Hgb 16.4, Hct 47.9, MCV 89.2, MCH 30.6, MCHC 34.3, RDW 13.5, Plt Count 181, MPV 7.8, Neut % (Auto) 80.5 H, Lymph % (Auto) 16.6, [place] % (Auto) 2.4, Eos % (Auto) 0.0 L, Baso % (Auto) 0.5, Neut # (Auto) 3.8, Lymph # (Auto) 0.8, [place] # (Auto) 0.1, Eos # (Auto) 0.0, Baso # (Auto) 0.0, Sodium 134 L, Potassium 4.2, Chloride 103, Carbon Dioxide 28, Anion Gap 7.2, BUN 16, Creatinine 0.80, Estimated Creat Clear 113, Estimated GFR 105, Est GFR ( Amer) 126, Glucose 139 H D, Calcium 8.8, Magnesium 1.8, Troponin I < 0.01 I & O for Labs for Last 24 Hours: Intake & Output 11/10/24 11/11/24 11/12/24 11/13/24 23:59 23:59 23:59 23:59 Intake Total 1230 / 1410 420 / 420 Output Total 0 / 0 0 / 0 Balance 1230 / 1410 420 / 420 Weight 320 lb 1.6 oz 310 lb 317 lb 11.2 oz Intake & Output 11/09/24 11/10/24 11/11/24 11/12/24 23:59 23:59 23:59 23:59 Intake Total 480 / 480 Output Total 0 / 0 Balance 480 / 480 Weight 320 lb 1.6 oz 310 lb Microbiology Reports for the Last 24 Hours: Microbiology 11/11/24 22:25 Blood Blood Culture - Preliminary NO GROWTH AFTER 24 HOURS 11/11/24 22:10 Blood Blood Culture - Preliminary NO GROWTH AFTER 24 HOURS 11/11/24 11:20 Sputum - Expectorated Sputum Gram Stain - Final Constitutional: Present moderate distress Head: Present normocephalic and atraumatic ENT: Present normal exam, normal oropharynx and mucous membranes moist Neck: Present normal inspection and full ROM Respiratory: Present respiratory distress and able to speak in complete sentences; Absent wheezes Cardiac: Present S1/S2, Tachycardia and radial pulses present GI: Present soft and distention; Absent tenderness or guarding Skin: Present intact; Absent cyanosis or jaundice Neuro: Present alert, awake and oriented x 3 Extremities: Present normal inspection; Absent clubbing or cyanosis Psychiatric: Present normal affect and cooperative Assessment and Plan *Assessment and plan (1) Acute hypoxemic respiratory failure: Status: Acute Category: Medical Code(s): J96.01 - Acute respiratory failure with hypoxia (2) Viral pneumonia: Status: Acute Category: Medical Code(s): J12.9 - Viral pneumonia, unspecified Plan Mr. Nicole is a 44-year-old male current smoker greater than [id number] smoking history, hypertensive cardiomyopathy, lung nodule and lymphadenopathy status post EBUS FNA 2021 negative for disease/lymphoma/infectious etiology presented to the ER with worsening respiratory distress worsening cough productive phlegm and generalized weakness. Admits worsening respiratory distress for the last 7 days. No significant respiratory symptoms at baseline. Not using any inhaler therapies at baseline. CTA upon admission no evidence of central pulmonary embolism. No dense consolidative airspace changes. Noted lower lobe bronchial thickening noted. The previous noted right lower lobe 1 cm nodule relatively stable from 2021. No significant worsening lymphadenopathy appreciated. Lymphopenia noted. Afebrile. Hemodynamically stable. Venous blood gas upon admission no evidence of hypoxic/hypercarbic respiratory failure. Complains of respiratory viral PCR panel positive for RSV. Currently being managed with doxycycline, DuoNebs and steroids. Continue to receive home diuretic regimen. On initial examination patient appeared to be in severe respiratory distress. Bilateral diffuse wheezing noted on auscultation. Interval Update: No acute respiratory events overnight. Improving oxygen requirements., Weaned to room air. Improvement auscultation No evidence of LE DVT on Doppler. Etiology likely secondary to viral pneumonia in setting of possible underlying reactive airway disease. Plan: Advair 250 twice daily scheduled Continue oxygen supplementation to maintain O2 saturation above 90% number currently needing 3 to 4 L to maintain sats of 90% and above Continue doxycycline to complete a total of 5-day course Prednisone 40 mg daily x 5 days Follow in pulmonary clinic 2 to 3 weeks postdischarge.
--- NOTE | 2024-11-13 10:07 | EXP.DC.SUM ---
General Admission date:: 11/11/24 Discharge date: 11/13/24 HPI HPI HPI: 44-year-old with past medical history of daily smoker, KIEL, hypertension, CHF. Patient presents with SOB, GAYTAN, fevers, chills, dry cough times several days. Patient's O2 saturation 80% in emergency room. Admits to productive whitish clearish cough for several days in conjunction with diarrhea and generalized soreness. Denies chest pain, abdominal pain, ataxia, blurry vision. Girlfriend present with patient emergency room and states she suffered from similar symptoms. Girlfriend diagnosed with head cold and ear infection. And currently on Augmentin therapy. Patient requiring 3 L nasal cannula in emergency room for adequate oxygenation. 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 Arteaga. Denies lower extremity swelling, PND or orthopnea. Patient's procalcitonin 0.138, CTA chest without PE but possible infectious changes, WBC 7.1. Hospital Course Hospital Course Hospital Course: 44-year-old with past medical history of daily smoker, KIEL, hypertension, CHF. Patient presents with SOB, GAYTAN, fevers, chills, dry cough times several days. Patient's O2 saturation 80% in emergency room. Patient admitted for COPD exacerbation. Patient's procalcitonin 0.138, CTA chest without PE but possible infectious changes, WBC 7.1. Patient admitted for bronchitis likely secondary to undiagnosed COPD exacerbation from RSV found to be positive on his respiratory panel. Pulmonology assisting with care. Given improvement to room air and tolerance of p.o. intake with improving labs, will discharge home. Problems addressed as follows: Bronchitis with COPD suspected: RSV pneumonia Acute hypoxemic respiratory failure -Patient admitted for new oxygen requirement and respiratory distress secondary to RSV. Started on antibiotics pending sputum culture. Pulmonology was consulted to assist with care during admission. Recommended nebulizers and Pulmicort while admitted. Weaned oxygen during admission. On room air by morning of discharge satting greater than 90%. No focal consolidation on chest imaging. Transition to cefdinir to complete 5 days of antibiotics. Prednisone to complete 5 days of steroids for COPD exacerbation. Initiate Advair daily. Follow-up with pulmonology as an outpatient for further workup of possible COPD. Labs normal on day of discharge. Slight bump in white count attributable to steroids. Patient overall clinically better. Daily smoker: ? Smoking cessation advice given during hospitalization. Nicotine 21 mg transdermal daily as needed nicotine cravings CHF: Aldactone 50 mg p.o. daily, furosemide 40 mg p.o. daily, carvedilol 25 mg p.o. twice daily Hypertension: As above and CHF plus irbesartan 150 mg p.o. daily Exam Data for Last 24 hours Vital signs and Labs for Last 24 Hours: Temp Pulse Resp BP Pulse Ox O2 Del Method O2 Flow Rate 97.7 F 55 L 18 134/68 90 L Room Air 2 11/13/24 08:00 11/13/24 08:00 11/13/24 08:00 11/13/24 08:00 11/13/24 08:00 11/13/24 09:00 11/13/24 08:00 FiO2 35 11/12/24 05:58 Laboratory Results - last 24 hr 11/11/24 19:35: Hepatitis C Antibody Non reactive 11/13/24 08:34: WBC 16.1 H D, RBC 5.14, Hgb 16.0, Hct 46.8, MCV 91.0, MCH 31.2, MCHC 34.3, RDW 13.4, Plt Count 204, MPV 7.9, Neut % (Auto) 88.0 H, Lymph % (Auto) 7.6 L, [place] % (Auto) 4.0, Eos % (Auto) 0.0 L, Baso % (Auto) 0.4, Neut # (Auto) 14.2 H, Lymph # (Auto) 1.2, [place] # (Auto) 0.6, Eos # (Auto) 0.0, Baso # (Auto) 0.1, Total Counted 100, Neutrophils % (Manual) 90 H, Lymphocytes % (Manual) 8 L, Monocytes % (Manual) 2, Platelet Estimate Normal, RBC Morphology Normal, Sodium 132 L, Potassium 4.5, Chloride 103, Carbon Dioxide 27, Anion Gap 6.5, BUN 24 H D, Creatinine 0.90, Estimated Creat Clear 100, Estimated GFR 91, Est GFR ( Amer) 110, Glucose 246 H, Calcium 8.7, Magnesium 1.9 I & O for Last 24 hours: Intake & Output 11/10/24 11/11/24 11/12/24 11/13/24 23:59 23:59 23:59 23:59 Intake Total 1230 / 1410 420 / 420 Output Total 0 / 0 0 / 0 Balance 1230 / 1410 420 / 420 Weight 145.195 kg 140.614 kg 144.106 kg Microbiology Reports for the Last 24 Hours: Microbiology 11/11/24 22:25 Blood Blood Culture - Preliminary NO GROWTH AFTER 24 HOURS 11/11/24 22:10 Blood Blood Culture - Preliminary NO GROWTH AFTER 24 HOURS 11/11/24 11:20 Sputum - Expectorated Sputum Gram Stain - Final Constitutional Constitutional: no acute distress, obese and cooperative *Routine HEENT Exam Head: Present normocephalic Eye: Present EOMI and PERRL ENT: Present mucous membranes moist *Routine Neck Exam Neck: Present supple; Absent lymphadenopathy *Routine Respiratory Exam Respiratory: Present prolonged expiratory phase; Absent rhonchi or wheezes *Routine Cardiovascular Exam Cardiovascular: Present RRR *Routine Abdominal Exam Abdominal: Present soft and normoactive bowel sounds; Absent tenderness *Routine Rectal Exam Patient deferred: visual exam *Routine Exam Patient deferred: penile exam *Routine Extremities Exam Extremities: Absent cyanosis, clubbing or edema *Routine Skin Exam Skin: Present warm; Absent rash *Routine Neurological Exam Neurological: Present alert, oriented X3 and moving all extremities; Absent altered mental status Results Data Completed and Pending Labs on day of discharge: Labs from last 24 hours 11/13/24 11/11/24 08:34 19:35 WBC 16.1 H D RBC 5.14 Hgb 16.0 Hct 46.8 MCV 91.0 MCH 31.2 MCHC 34.3 RDW 13.4 Plt Count 204 MPV 7.9 Neut % (Auto) 88.0 H Lymph % (Auto) 7.6 L [place] % (Auto) 4.0 Eos % (Auto) 0.0 L Baso % (Auto) 0.4 Neut # (Auto) 14.2 H Lymph # (Auto) 1.2 [place] # (Auto) 0.6 Eos # (Auto) 0.0 Baso # (Auto) 0.1 Total Counted 100 Neutrophils % (Manual) 90 H Lymphocytes % (Manual) 8 L Monocytes % (Manual) 2 Platelet Estimate Normal RBC Morphology Normal Sodium 132 L Potassium 4.5 Chloride 103 Carbon Dioxide 27 Anion Gap 6.5 BUN 24 H D Creatinine 0.90 Estimated Creat Clear 100 Estimated GFR 91 Est GFR ( Amer) 110 Glucose 246 H Calcium 8.7 Magnesium 1.9 Hepatitis C Antibody Non reactive Preliminary micro results at discharge 11/11/24 22:25 Blood Culture - Preliminary Blood NO GROWTH AFTER 24 HOURS 11/11/24 22:10 Blood Culture - Preliminary Blood NO GROWTH AFTER 24 HOURS DS: Diagnosis Discharge Diagnosis (1) Acute hypoxemic respiratory failure: Status: Acute Code(s): J96.01 - Acute respiratory failure with hypoxia (2) Viral pneumonia: Status: Acute Code(s): J12.9 - Viral pneumonia, unspecified Meds Home Medications and Allergies Home Medications ?Medication ?Instructions ?Recorded ?Confirmed ?Type blood pressure monitor 09/16/22 11/15/24 History cefdinir 300 mg capsule 300 mg PO BID 3 days #5 caps 11/13/24 11/15/24 Rx fluticasone 250 mcg-salmeterol 50 1 inh inhalation BID #60 ea 11/13/24 11/15/24 Rx mcg/dose blistr powdr for inhalation (Advair Diskus) prednisone 20 mg tablet 40 mg (2 x 20 mg) PO DAILY 3 days 11/13/24 11/15/24 Rx #6 tabs carvedilol 25 mg tablet 25 mg PO BID 30 days #60 tabs 11/15/24 11/15/24 Rx furosemide 40 mg tablet 40 mg PO DAILY 30 days #30 tabs 11/15/24 11/15/24 Rx irbesartan 150 mg tablet 150 mg PO DAILY 30 days #30 tabs 11/15/24 11/15/24 Rx spironolactone 50 mg tablet 50 mg PO DAILY #30 tabs 11/15/24 11/15/24 Rx New Prescriptions to Start Prescriptions: cefYobani Pack fluticasone propion-salmeterol [Advair Diskus] Yobani Pruitt prednisone Yobani Pruitt Allergies Allergy/AdvReac Type Severity Reaction Status Date / Time No Known Allergies Allergy Verified 11/15/24 09:26 Discharge Plan Disposition Patient Disposition: Home, Self-Care Condition: Fair Discharge Order Discharge Orders: Discharge Order (Routine); Ordered 11/13/24 Ordered By: Yobani Pruitt Follow up Plan Follow up with: Cami Hassan MD [Physician] - 12/04/24 1:20 pm Edilma Naik APRN [Nurse Practitioner] - 11/17/24 9:00 am Prescriptions/Medication Reconciliation: New cefdinir 300 mg capsule 300 mg PO BID 3 Days Qty: 5 0RF prednisone 20 mg tablet 40 mg PO DAILY 3 Days Qty: 6 0RF fluticasone propion-salmeterol [Advair Diskus] 250-50 mcg/dose blister with device 1 inh inhalation BID Qty: 60 0RF No Action carvedilol 25 mg tablet 25 mg PO BID 30 Days Qty: 60 5RF Rx Instructions: must administer with a meal/food furosemide 40 mg tablet 40 mg PO DAILY 30 Days Qty: 30 5RF irbesartan 150 mg tablet 150 mg PO DAILY 30 Days Qty: 30 5RF spironolactone 50 mg tablet 50 mg PO DAILY Qty: 30 5RF (DME) blood pressure monitor Kit See Rx Instructions MISCELLANEOUS Rx Instructions: As directed Problem Reconciliation Problems Reviewed?: Yes Patient Discharge Instructions ACTIVITY: Continue current activity DIET: continue same diet Patient Instructions: DI for Respiratory Syncytial Virus -- Adults, DI for Respiratory Failure Print Language: Kenyan Providers Primary Care Provider: Nathen Taylor Admit Provider: Dylan Webber Attending Provider: Dylan Webber
[2024-11-13 11:14] LABS: HIV Combo NEGATIVE (Negative)
[2024-11-13] MEDS: FLUTICASONE/SALMETEROL 250/50MCG DISKUS 1 PUFF IH (11:19)
--- NOTE | 2024-11-15 10:08 | SW/DCPLANNER ---
Spoke with patient on the phone. Patient stated that he is doing well. Patient stated that he is aware of his upcoming appointment. Patient stated that he has no concerns or questions at this titme. Chiqui Hui
== END 2024-11-13 11:15 | disposition home or self-care (01) | DRG 193 ==
LOC: ER 20:43 → 2ND 11-12 00:12
PROVIDERS: Physician Assistant; Admitting Provider Internal Medicine; Emergency Provider Emergency Medicine; PCP Internal Medicine Adolescent Medicine; Visit Provider Internal Medicine
DX: J12.1 Respiratory syncytial virus pneumonia (principal); J96.01 Acute respiratory failure with hypoxia; J44.1 Chronic obstructive pulmonary disease with (acute) exacerbation; I43 Cardiomyopathy in diseases classified elsewhere; F17.210 Nicotine dependence, cigarettes, uncomplicated; I50.9 Heart failure, unspecified; G47.33 Obstructive sleep apnea (adult) (pediatric); I11.0 Hypertensive heart disease with heart failure; Z79.899 Other long term (current) drug therapy; R91.1 Solitary pulmonary nodule
CPT/HCPCS: 36415; 71275; 80048; 80053; 82803; 83735; 83880; 84145; 84484; 85007; 85025; 85610; 86803; 87040; 87070; 87205; 87389; 87633; 93970; 94640; 94761; 99285; J1100; J1650; J2919; J7620; Q9967